=== PATIENT | female | born 1960 | race Caucasian/White ===

== ENCOUNTER 2021-03-23 14:18 | Emergency (ER) | payer OTHER, SELFPAY ==
[2021-03-23 14:32] VITALS: BP 141/78; PULSE 77; RESP 16; TEMP 36.1; O2SAT 100
--- NOTE | 2021-03-23 14:51 | ED.SKABFB ---
HPI - Skin/Abscess/Foreign Bdy General Chief complaint: Skin/Abscess/Foreign Body Stated complaint: Rash Time Seen by Provider: 03/23/21 14:51 Source: patient, RN notes reviewed and old records reviewed Mode of arrival: ambulatory Limitations: no limitations History of Present Illness HPI narrative: 60-year-old female presents to the [facility] with complaints of a rash right rib area states she noticed the pain approximately 1 week ago and started with a rash a couple of days ago. No treatment prior to arrival. States her son had shingles approximately 1 month ago MD complaint: rash Related Data Home Medications Medication Instructions Recorded Confirmed albuterol sulfate INHALATION 03/23/21 alendronate mg PO 03/23/21 citalopram mg 03/23/21 fluticasone propionate INTRANASAL 03/23/21 levothyroxine 03/23/21 montelukast mg 03/23/21 pravastatin 03/23/21 umeclidinium [Incruse Ellipta] INHALATION 03/23/21 Allergies Allergy/AdvReac Type Severity Reaction Status Date / Time No Known Allergies Allergy Verified 03/23/21 14:55 Review of Systems Review of Systems: All systems reviewed & are unremarkable except as noted in HPI and below Constitutional: Constitutional: Reports no additional constitutional complaints, Denies chills and Denies fever(s) Eyes: Eyes: Reports no additional eye complaints ENT: Reports system reviewed and no additional complaints, except as documented Cardiovascular: Cardiovascular: Reports no additional cardiovascular complaints Respiratory: Respiratory: Reports no additional respiratory complaints, Denies cough, Denies dyspnea and Denies wheezing Gastrointestinal: Gastrointestinal: Reports no additional gastrointestinal complaints, Denies abdominal pain, Denies nausea and Denies vomiting Musculoskeletal: Musculoskeletal: Reports no additional musculoskeletal complaints, Denies back pain, Denies myalgias and Denies muscle cramps Integumentary/Breasts: Skin/Breast: Reports as per HPI and Reports rash (Right rib cage) Neurologic: Reports system reviewed and no additional complaints, except as documented Psychiatric: Psychiatric: Reports no additional psychiatric complaints Allergic/Immunologic: Allergic/Immunologic: Reports no additional allergic/immunologic complaints [facility] Past Medical History Medical History (Updated 03/23/21 @ 19:12 by Shelly Murray) Anxiety and depression High cholesterol Thyroid disease Social History Social History (Updated 03/23/21 @ 19:10 by Shelly Murray) Gender identity (if verbalized by the patient): Female Comments At the time of my signature, I reviewed and agree with the nursing past medical, surgical, social, and family history. There is no relevant family history pertinent to the patient complaint. Exam Const: General: no acute distress, alert and ill appearing chronically; not acutely Nutritional Appearance: well nourished Orientation/consciousness: patient oriented x3 Limitations: no limitations HENMT: Head: normal to inspection Ears: external ears normal Eyes: Pupils: Equal, round and reactive pupils present Neck: Neck: normal visual inspection and no lymphadenopathy Chest: Chest palpation & inspection: normal inspection of the chest Resp: Effort & Inspection: normal respiratory effort Auscultation: clear to auscultation bilaterally Cardio: Rate: regular rate GI: GI Palp: Yes Soft to palpation and No Tenderness to palpation present (GI) Skin: Lesions: no lesions Rashes: rashes noted Trauma: no lacerations or abrasions Full body images: 1. Vesicular rashes half already crusted over 2. Vesicular rash Neuro: General: patient oriented x3, moves all extremities, no meningeal signs and no focal motor deficits Speech: normal speech Gait exam (Neuro): Normal gait present Psych: Appearance: grossly normal and well kempt Mental Status: mental status grossly normal Affect: normal affect Attitude: cooperative
== END 2021-03-23 15:10 | disposition home or self-care (01) ==
PROVIDERS: Emergency Provider Nurse Practitioner; PCP Registered Nurse
DX: B02.9 Zoster without complications (principal); E78.00 Pure hypercholesterolemia, unspecified; F41.9 Anxiety disorder, unspecified; F32.A Depression, unspecified
CPT/HCPCS: 99213; G0463

== ENCOUNTER 2021-06-06 12:35 | Emergency (ER) | payer OTHER, SELFPAY ==
--- NOTE | ~2021-06-06 | XR_ITS ---
XR hip LT min 2V 06/06/2021 13:14 Indication: Left hip pain Procedure: 3 views left hip Comparison: 01/02/2012 Findings: There is anatomic alignment. No fracture, subluxation or dislocation. No significant soft t issue abnormality. No foreign bodies. Impression: 1: No acute fracture. Reviewed, dictated and finalized at location B. Impression: 1: No acute fracture.
[2021-06-06 12:42] VITALS: BP 99/71; PULSE 84; RESP 16; TEMP 37.1; O2SAT 97
--- NOTE | 2021-06-06 12:43 | ED.BACK ---
HPI - Back Pain/Injury General Chief Complaint: Extremity Injury, Lower Stated Complaint: left hip pain Time Seen by Provider: 06/06/21 12:43 Source: patient Mode of arrival: ambulatory Limitations: no limitations History of Present Illness HPI Narrative: 60-year-old female presents with c/o low back pain radiating to L hip and down L leg. Hx of sciatica and L hip arthritis. States she normally can take tylenol or motrin and feels better in a few days but hip has really been bothering her. Pt cleans homes for a living. thought after two days off she would feel better but does not. Pt concerned that she might have a hip fracture. eliazar had a few spills recently . Ambulatory with steady gait. all systems reviewed and negative except as noted above. Related Data Home Medications Medication Instructions Recorded Confirmed albuterol sulfate INHALATION 03/23/21 alendronate mg PO 03/23/21 citalopram mg 03/23/21 fluticasone propionate INTRANASAL 03/23/21 levothyroxine 03/23/21 montelukast mg 03/23/21 pravastatin 03/23/21 umeclidinium [Incruse Ellipta] INHALATION 03/23/21 hydrochlorothiazide 06/06/21 losartan-hydrochlorothiazide tablet 06/06/21 Allergies Allergy/AdvReac Type Severity Reaction Status Date / Time No Known Allergies Allergy Verified 03/23/21 14:55 Review of Systems Review of Systems: CONSTITUTIONAL: Denies fever, chills, or sweats. EYES: Denies visual changes, redness, or discharge. ENT: Denies rhinorrhea, congestion, sore throat, or otalgia. CARDIOVASCULAR: Denies chest pain, palpitations, or edema. RESPIRATORY: Denies cough or dyspnea. GASTROINTESTINAL: Denies abdominal pain, nausea, vomiting, or diarrhea. GENITOURINARY: Denies dysuria or hematuria. SKIN: Denies rash or itching. MUSCULOSKELETAL: Reports left hip and back pain with radiation to left leg. NEUROLOGIC: Denies headache, numbness, or weakness. PSYCHIATRIC: Denies anxiety or depression. All other systems reviewed are negative, except as documented in HPI. COUNTS INCLUDE 234 BEDS AT THE [facility] Past Medical History Medical History (Updated 06/06/21 @ 13:30 by Amanda Martinez NP) Anxiety and depression High cholesterol Thyroid disease Social History Social History (Updated 03/23/21 @ 19:10 by Shelly Murray APRN) Gender identity (if verbalized by the patient): Female Comments At time of signature, agree with nursing past medical, surgical, social and family history. There is no relevant family history pertinent to the presenting complaint. Exam Narrative: GENERAL: This is a well-nourished, well-developed patient, in no apparent distress. HEAD: normocephalic, atraumatic. EYES: PERRL. Sclera clear/white. Vision is grossly intact. EARS: External ears normal NOSE: External nose normal THROAT: Mucous membranes moist NECK: Neck supple, non-tender without lymphadenopathy, masses or thyromegaly. CARDIOVASCULAR: Regular rate and rhythm without murmurs, gallops, or rubs. RESPIRATORY: Clear to auscultation. Breath sounds equal bilaterally. No wheezes, rales, or rhonchi. GASTROINTESTINAL: Abdomen soft, non-tender, nondistended. Bowel sounds are active. No hepato-splenomegaly, or palpable masses. No guarding. SKIN: warm, Dry, intact with no suspicious lesions or rash, good texture and turgor. NEURO: awake, alert, and oriented to person, place and time. There were no obvious focal neurologic abnormalities. EXTREMITIES: No joint tenderness, effusion, or edema noted. No calf tenderness. Negative Homans sign bilaterally. BACK: Tenderness to left SI with tenderness to left greater trochanter. Positive left straight leg raise. Both lower extremity strength 5 out of 5. Course Course Level of Care: Express Care Visit Vital Signs Vital signs: Reviewed MDM - Back Pain/Injury MDM Narrative Medical decision making narrative: Patient is aware of diagnosis, understands and agrees to treatment plan. Anticipatory guidance given. Patient agrees to follow-up as directed a
[2021-06-06] MEDS: KETOROLAC 30 MG/ML VIAL (*BKC) IM (12:57)
== END 2021-06-06 13:42 | disposition home or self-care (01) ==
PROVIDERS: Emergency Provider Nurse Practitioner Family
DX: M54.42 Lumbago with sciatica, left side (principal); E78.00 Pure hypercholesterolemia, unspecified; E03.9 Hypothyroidism, unspecified; F41.9 Anxiety disorder, unspecified; F32.A Depression, unspecified
CPT/HCPCS: 73502; 96372; 99213; G0463; J1885

== ENCOUNTER → 2021-10-19 13:47 | Outpatient (CLI) | payer OTHER, SELFPAY ==
--- NOTE | ~2021-10-19 | XR_ITS ---
XR lumbar spine 2-3V 10/19/2021 14:07 Indication: Low back pain and radiculopathy Procedure: 3 views lumbar spine Comparison: 04/30/2014 and 08/29/2009 Findings: There has been progression of disc height loss at L3-4 and L4-5. There is loss of disc heig ht at L5-S1. There is lower lumbar facet hypertrophy. No evidence for spondylolisthesis. There is lev oscoliosis. There are cholecystectomy clips. Pedicles intact. Sacral foramen are symmetric. Impression: 1: Moderate lumbar spondylosis with levoscoliosis. Reviewed, dictated and finalized at location A. Impression: 1: Moderate lumbar spondylosis with levoscoliosis.
== END ==
PROVIDERS: PCP Registered Nurse; Visit Provider Registered Nurse
DX: M54.15 Radiculopathy, thoracolumbar region (principal); M47.816 Spondylosis without myelopathy or radiculopathy, lumbar region; M41.86 Other forms of scoliosis, lumbar region
CPT/HCPCS: 72100

== ENCOUNTER 2022-01-09 15:55 | Emergency (ER) | payer OTHER, SELFPAY ==
[2022-01-09 16:05] VITALS: BP 99/68; PULSE 89; RESP 22; TEMP 36.7; O2SAT 99
[2022-01-09 16:06] VITALS: BP 99/68; PULSE 89; RESP 22; TEMP 36.7; O2SAT 99
--- NOTE | 2022-01-09 16:45 | ED.URI ---
HPI - URI/Sore Throat General Chief Complaint: Upper Respiratory Infection Stated Complaint: uri Time Seen by Provider: 01/09/22 16:21 Source: patient Mode of arrival: ambulatory Limitations: no limitations History of Present Illness HPI Narrative: Patient presents today complaining of body aches, cough, chills and sweats, diarrhea since yesterday. Denies fever. Reports granddaughter is currently hospitalized with influenza. Patient also states she is having left upper tooth pain and jaw swelling x2 days. She has attempted to call her dentist, but states their first appointment is at the end of February. States she has not tried any brat-[id number] medication for symptoms prior to arrival. Related Data Home Medications Medication Instructions Recorded Confirmed albuterol sulfate 90 mcg/actuation 90 mcg inhalation DIRECTED 03/23/21 01/09/22 aerosol inhaler alendronate 70 mg tablet 70 mg PO DIRECTED 03/23/21 01/09/22 citalopram 20 mg tablet 20 mg DIRECTED 03/23/21 01/09/22 fluticasone propionate 50 50 mcg intranasal DIRECTED 03/23/21 01/09/22 mcg/actuation nasal spray,suspension levothyroxine 125 mcg tablet 125 mcg DIRECTED 03/23/21 01/09/22 montelukast 10 mg tablet 10 mg DIRECTED 03/23/21 01/09/22 pravastatin 40 mg tablet 40 mg DIRECTED 03/23/21 01/09/22 umeclidinium 62.5 mcg/actuation 62.5 mcg inhalation DIRECTED 03/23/21 01/09/22 blister powder for inhalation (Incruse Ellipta) hydrochlorothiazide 12.5 mg capsule 12.5 mg DIRECTED 06/06/21 01/09/22 losartan 50 mg-hydrochlorothiazide 1 tablet DIRECTED 06/06/21 01/09/22 12.5 mg tablet Allergies Allergy/AdvReac Type Severity Reaction Status Date / Time No Known Allergies Allergy Verified 03/23/21 14:55 Review of Systems Review of Systems: CONSTITUTIONAL: Denies fever. + Chills, sweats, body aches EYES: Denies visual changes, redness, or discharge. ENT: Denies rhinorrhea, congestion, sore throat, or otalgia.+ Tooth pain and facial swelling CARDIOVASCULAR: Denies chest pain, palpitations, or edema. RESPIRATORY: Denies dyspnea.+ Cough GASTROINTESTINAL: Denies abdominal pain, nausea, vomiting. + Diarrhea GENITOURINARY: Denies dysuria or hematuria. SKIN: Denies rash, itching, or wounds. MUSCULOSKELETAL: Denies back pain, joint pain, or myalgia. NEUROLOGIC: Denies headache, numbness, tingling, or weakness. PSYCH: Denies depression or anxiety. [facility] Past Medical History Medical History Anxiety and depression High cholesterol Thyroid disease Social History Social History Gender identity (if verbalized by the patient): Female Comments At time of signature, I have reviewed and agree with nursing past medical, surgical, social and family history unless otherwise noted. Please see nursing chart for further information. There is no relevant family history pertinent to the presenting complaint Exam Narrative: GENERAL: Mildly ill-appearing, well-nourished, and in no acute distress. HEAD: Normocephalic, atraumatic. EYES: EOMI. No redness or drainage. Conjunctivae normal. ENT: Mucous membranes pink and moist. Nares clear. No rhinorrhea. TMs normal bilaterally. Throat normal. Uvula midline. Very poor dentition with missing teeth. Tooth #12 is brown in color. Surrounding gum swelling and periapical abscess present. Mild to moderate left upper jaw swelling. NECK: Normal AROM. Supple. No lymphadenopathy. CHEST: No respiratory distress. Clear to auscultation. HEART: Regular rate and rhythm. No murmur appreciated. Normal peripheral pulses. EXTREMITIES: Normal range of motion. No edema. SKIN: Warm, dry, no rash. Capillary refill normal. Normal skin turgor. NEURO: No focal deficits. Alert and oriented x3. Gait steady. PSYCH: Normal affect. No signs of depression or anxiety. Course Course Level
== END 2022-01-09 16:59 | disposition home or self-care (01) ==
PROVIDERS: Emergency Provider Nurse Practitioner
DX: J10.1 Influenza due to other identified influenza virus with other respiratory manifestations (principal); K04.7 Periapical abscess without sinus; E78.00 Pure hypercholesterolemia, unspecified; E03.9 Hypothyroidism, unspecified; F41.9 Anxiety disorder, unspecified; F32.A Depression, unspecified
CPT/HCPCS: 87804; 99213; G0463

== ENCOUNTER 2022-06-06 13:18 | Emergency (ER) | payer OTHER, SELFPAY ==
[2022-06-06 13:30] VITALS: BP 123/59; PULSE 95; RESP 16; TEMP 37.2; O2SAT 98
--- NOTE | 2022-06-06 13:37 | ED.BACK ---
HPI - Back Pain/Injury General Chief Complaint: Back Pain/Injury Stated Complaint: Back Pain Time Seen by Provider: 06/06/22 13:37 Source: patient Mode of arrival: ambulatory Limitations: no limitations History of Present Illness HPI Narrative: 61 y/o female presented for c/o left lower back pain for about 6 days. Denies injury or overuse. Pain radiates into the left hip. Pain is worse with movement. Described as sharp. Rates 8/10 with movement. Denies radiating pain to the foot or knee, numbness, tingling, weakness of lower extremities, saddle paresthesia, loss of bowel or bladder. Has not taken anything in addition to her scheduled medications for pain. Has applied pain cream. States she has seen pain management in the past for similar complaints. Related Data Home Medications Medication Instructions Recorded Confirmed albuterol sulfate 90 mcg/actuation 90 mcg inhalation DIRECTED 03/23/21 01/09/22 aerosol inhaler alendronate 70 mg tablet 70 mg PO DIRECTED 03/23/21 01/09/22 citalopram 20 mg tablet 20 mg DIRECTED 03/23/21 01/09/22 fluticasone propionate 50 50 mcg intranasal DIRECTED 03/23/21 01/09/22 mcg/actuation nasal spray,suspension levothyroxine 125 mcg tablet 125 mcg DIRECTED 03/23/21 01/09/22 montelukast 10 mg tablet 10 mg DIRECTED 03/23/21 01/09/22 pravastatin 40 mg tablet 40 mg DIRECTED 03/23/21 01/09/22 umeclidinium 62.5 mcg/actuation 62.5 mcg inhalation DIRECTED 03/23/21 01/09/22 blister powder for inhalation (Incruse Ellipta) losartan 50 mg-hydrochlorothiazide 1 tablet DIRECTED 06/06/21 01/09/22 12.5 mg tablet umeclidinium 62.5 mcg/actuation inhalation 06/06/22 blister powder for inhalation (Incruse Ellipta) Allergies Allergy/AdvReac Type Severity Reaction Status Date / Time No Known Allergies Allergy Verified 06/06/22 13:20 Review of Systems Review of Systems: CONSTITUTIONAL: Denies body aches, fever, chills EYES: Denies visual changes CARDIOVASCULAR: Denies chest pain, palpitations, or edema. RESPIRATORY: Denies cough or dyspnea. GASTROINTESTINAL: Denies abdominal pain, nausea, vomiting, or diarrhea. SKIN: Denies rash, itching, or wounds. MUSCULOSKELETAL: reports back pain NEUROLOGIC: Denies headache, numbness, tingling, or weakness. All systems reviewed & are unremarkable except as noted in HPI and below PMFSH Past Medical History Medical History Anxiety and depression High cholesterol Thyroid disease Social History Social History Gender identity (if verbalized by the patient): Female Comments At time of signature, I have reviewed and agree with nursing past medical, surgical, social and family history unless otherwise noted. Please see nursing chart for further information. There is no relevant family history pertinent to the presenting complaint Exam Narrative: GENERAL: appears in pain, no acute distress. HEAD: Normocephalic, atraumatic. EYES: conjunctivae clear NECK: Supple. full ROM CHEST: Speaks in full sentences. No respiratory distress. HEART: Regular rate and rhythm. Normal and equal peripheral pulses. MUSC: No Vertebral point tenderness. Left lower back pain, tender to left para sacral/hip area. No SI joint pain. BLEs with normal strength and sensation, normal range of motion, endorses pain with movement. No open wounds, bruising, or obvious deformity; alignment normal, pulse palpable and equal bilaterally, skin warm, dry, pink. Capillary refill less than 3 seconds. Gait steady. SKIN: Warm, dry, no rash. NEURO: Alert and oriented x3. Course Course Emergency Course: Patient is aware of diagnosis, understands and agrees to treatment plan. Anticipatory guidance given. Patient agrees to follow-up as directed and is aware of reasons to seek care at the emergency department. Portions of this record may have
[2022-06-06] MEDS: methylPREDNISolone ACETATE 80 MG/ML VIAL IM (13:58)
== END 2022-06-06 14:18 | disposition home or self-care (01) ==
PROVIDERS: Emergency Provider Nurse Practitioner Family; PCP Registered Nurse
DX: M54.50 Low back pain, unspecified (principal); E78.00 Pure hypercholesterolemia, unspecified; E07.9 Disorder of thyroid, unspecified; F41.9 Anxiety disorder, unspecified; F32.A Depression, unspecified
CPT/HCPCS: 96372; 99213; G0463; J1040

== ENCOUNTER 2022-09-27 10:17 | Outpatient (CLI) | payer OTHER, SELFPAY ==
[2022-09-27 12:06] LABS: Free T4 Free Thyroxine 1.86 ng/mL (0.78-2.19)
[2022-09-27 12:08] LABS: Thyroid Stimulating Hormone < 0.015 uIU/mL (0.465-4.680)
[2022-10-01 14:44] LABS: Thyroid Stimulating Immunoglob <89 % baseline (<140)
== END 2022-09-27 10:18 | disposition home or self-care (01) ==
PROVIDERS: PCP Registered Nurse; Visit Provider Internal Medicine
DX: E03.9 Hypothyroidism, unspecified (principal)
CPT/HCPCS: 36415; 84439; 84443; 84445

== ENCOUNTER 2022-11-21 20:26 | Emergency (ER) | payer OTHER, SELFPAY ==
--- NOTE | ~2022-11-21 | CT_ITS ---
Clinical Indication: Chest and abdominal pain CT Scan of the Chest, Abdomen, and Pelvis with Contrast: Technique: Contiguous sections were acquired throughout the chest, abdomen, and pelvis after intraven ous administration of 100 cc of Omnipaque 350. Dose reduction technique was used on this scan by uti lizing automated exposure control and iterative reconstruction technique. The dose-length product (DL P) was 321.95 mGy-cm. Findings: There is no evidence of any significant mediastinal, hilar or axillary lymphadenopathy. Atherosclerot ic calcifications of the aorta and coronary arteries are present. There is no aortic aneurysm or diss ection. No pulmonary embolus seen. There is no evidence of pleural or pericardial effusion. There is severe emphysema, particularly upper lobes. There is a 5.5 mm noncalcified pulmonary nodule the left upper lobe/lingula (series 6 image 65). Mild central intrahepatic biliary dilatation may be related to prior cholecystectomy. The spleen, sotelo creas, adrenals and kidneys are within normal limits. There are atherosclerotic calcifications of the aorta. No lymphadenopathy. No bowel obstruction or definite bowel wall thickening. Moderate stool noted. No abscess or free air evident. Urinary bladder is unremarkable. No pelvic mass seen. No ascites. Impression: No definite acute abnormality seen. Severe emphysema. 5.5 mm noncalcified left upper lobe/lingula pulmonary nodule. According to Fleischner Society criteri a, for a low-risk patient, no further follow-up required. For a high-risk patient, consider 12 month follow-up CT. Moderate stool. Correlate for constipation. Mild central intrahepatic biliary dilatation may be related to prior cholecystectomy. Reviewed, dictated and finalized at [facility]. Impression: No definite acute abnormality seen. Severe emphysema. 5.5 mm noncalcified left upper lobe/lingula pulmonary nodule. According to Flei schner Society criteria, for a low-risk patient, no further follow-up required. For a high-risk patient, consider 12 month follow-up CT. Moderate stool. Correlate for constipation. Mild central intrahepatic biliary dilatation may be related to prior cholecyste ctomy.
[2022-11-21 20:29] VITALS: BP 134/73; PULSE 83; RESP 20; TEMP 35.8; O2SAT 100
[2022-11-21 22:38] VITALS: BP 151/71; PULSE 81; RESP 20; TEMP 36.1; O2SAT 98
[2022-11-22] VITALS (7 sets, daily range): BP systolic 104–136; BP diastolic 61–89; PULSE 72–82; RESP 15–20; TEMP 36.1–36.6; O2SAT 94–99
[2022-11-22 01:43] LABS: Basophils Absolute Auto 0.1 K/mm3 (0.0-0.1); Basophils Percent Auto 0.5 % (0.2-1.2); Eosinophils Absolute Auto 0.2 K/mm3 (0-0.3); Eosinophils Percent Auto 1.5 % (0-4.4); Hematocrit 42.6 % (37.0-47.0); Hemoglobin 14.2 g/dL (12.0-15.0); Immature Granulocyte Absolute 0.04 K/mm3 (0.00-0.031); Immature Granulocyte Percent A 0.3 % (0-0.5); Lymphocytes Percent Auto 20.8 % (18.3-44.2); Mean Corpuscular HGB Conc 33.3 g/dl (32-36); Mean Platelet Volume 9.5 fl (7.4-10.4); Monocytes Absolute Auto 1.3 K/mm3 (0.1-0.6); Neutrophils Absolute Auto 7.9 K/mm3 (1.3-6.7); Neutrophils Percent Auto 65.9 % (45.5-73.1); Platelet Count Result 371 k/mm3 (150-375); Red Blood Count 4.58 M/mm3 (4.2-5.4); Red Cell Distribution Width 13.1 % (11.5-14.5)
[2022-11-22 01:58] LABS: Alanine Aminotransferase 17 U/L (6-35); Albumin Level 4.4 g/dL (3.5-5.1); Alkaline Phosphatase 71 U/L (38-126); Anion Gap 4 mmol/L (8-16); Aspartate Amino Transferase 22 U/L (14-36); Bilirubin,Total 0.8 mg/dL (0.2-1.3); Blood Urea Nitrogen 11 mg/dL (7-17); Calcium 8.7 mg/dL (8.4-10.2); Carbon Dioxide 31 mmol/L (22-30); Chloride 98 mmol/L (98-107); Estimated CRCL calculation 60 ml/min; Estimated Glomerular Filt Rate > 60; Glucose 103 mg/dL (65-110); Lipase 68 U/L (23-300); Potassium 3.7 mmol/L (3.4-5.0); Sodium 133 mmol/L (137-145)
[2022-11-22 01:59] LABS: Lactic Acid Reflex 0.8 mmol/L (0.7-2.0)
[2022-11-22 03:19] LABS: Appearance Urine Clear (Clear); Bilirubin Urine Negative (Negative); Blood Urine Negative (Negative); Color Urine Yellow (Yellow); Glucose Urine UA Negative (Negative); Ketones Urine Negative (Negative); Leukocyte Esterase Ur Negative LEU/UL (Negative); Nitrate Urine Negative (Negative); Protein Urine Negative (Negative); Specific Grav Ur 1.005 (1.001-1.035)
[2022-11-22 03:21] LABS: Add Urine Microscopic? NO
--- NOTE | 2022-11-22 03:23 | ECG_ITS ---
Measurements Intervals [place] Rate: 67 P: 59 WV: 169 QRS: 69 QRSD: 90 T: 60 QT: 418 QTc: 443 Interpretive Statements SINUS RHYTHM POSSIBLE LEFT ATRIAL ENLARGEMENT BASELINE WANDER- I, II, AVR, AVL, AVF BORDERLINE ECG NO PREVIOUS ECG AVAILABLE FOR COMPARISON Electronically Signed On 11-22-2022 6:52:07 CDT by Alcides Berger D.O.
[2022-11-22] MEDS: MORPHINE SULFATE (*CRX) 4 MG/ML INJ 2 MG IV PUSH (03:34)
[2022-11-22 04:13] LABS: NT Pro B Type Natriuretic Pept 70 pg/mL (19.9-100); Troponin I < 0.012 ng/mL (0.000-0.034)
--- NOTE | 2022-11-22 04:45 | ED.GENADULT ---
HPI - General Adult General Chief complaint: Abdominal Pain Stated complaint: Abdominal pain Time Seen by Provider: 11/22/22 03:12 History of Present Illness HPI narrative: Patient is 62-year-old female who presents the emergency department with chief complaint of abdominal pain. Patient reports she started having pain in the right side of her abdomen the right lower chest. The patient reports the pain is worse with inspiration and movement. The patient reports she has history of a chronic infection in her lungs patient reports that she has had no fever does report that she has chronic cough patient reports that she had a cholecystectomy before in the past. Related Data Home Medications Medication Instructions Recorded Confirmed albuterol sulfate 90 mcg/actuation 90 mcg inhalation DIRECTED 03/23/21 01/09/22 aerosol inhaler alendronate 70 mg tablet 70 mg PO DIRECTED 03/23/21 01/09/22 citalopram 20 mg tablet 20 mg DIRECTED 03/23/21 01/09/22 fluticasone propionate 50 50 mcg intranasal DIRECTED 03/23/21 01/09/22 mcg/actuation nasal spray,suspension montelukast 10 mg tablet 10 mg DIRECTED 03/23/21 01/09/22 pravastatin 40 mg tablet 40 mg DIRECTED 03/23/21 01/09/22 losartan 50 mg-hydrochlorothiazide 1 tablet DIRECTED 06/06/21 01/09/22 12.5 mg tablet Allergies Allergy/AdvReac Type Severity Reaction Status Date / Time No Known Allergies Allergy Verified 09/27/22 08:56 Review of Systems Review of Systems: A 10 system review of systems was completed on the patient and is negative except for what is stated in the HPI. Nursing and ancillary documentation was reviewed. [facility] Past Medical History Medical History Anxiety and depression Arthritis COPD (chronic obstructive pulmonary disease) High cholesterol Hypertension Osteopenia Thyroid disease Surgical History Surgical History History of cholecystectomy History of hernia repair History of knee surgery History of sinus surgery Family History Family History Sibling Carcinoma of colon Social History Social History Smoking status: Current every day smoker Tobacco type: cigarettes Alcohol intake: former Substance use: former Substance use type: marijuana Lack of Transportation: No Lack of Food: Never True Current Housing: I Do Not Have Housing Concerned About Future Housing: No Difficulty Paying Gas/Electric Bills: No Difficulty Paying for Meds: No Currently Unemployed: No Education: High School Diploma/GED Difficulty w/ Childcare or Family Care: No Gender identity (if verbalized by the patient): Female Exam Narrative: GENERAL: Well-appearing, well-nourished, and in no acute distress. HEAD: Normocephalic, atraumatic. EYES: PERRLA and EOMI. ENT: Nares clear, no rhinorrhea or epistaxis. Mucous membranes moist. NECK: Supple. CHEST: Clear to auscultation. No respiratory distress. HEART: Regular rate and rhythm. No murmur heard. Normal peripheral pulses. ABDOMEN: Soft, tenderness to palpation in the right upper quadrant, nondistended, normal active bowel sounds. EXTREMITIES: Normal range of motion. No edema. SKIN: Warm, dry, no rash. NEURO: No focal deficits. Alert and oriented x3. PSYCH: Normal mood and affect. Course Vital Signs Vital signs: Vital Signs Temperature 35.8 C L 11/21/22 20:29 Pulse Rate 83 11/21/22 20:29 Respiratory Rate 20 11/21/22 20:29 Blood Pressure 134/73 11/21/22 20:29 Pulse Oximetry 100 11/21/22 20:29 Oxygen Delivery Room Air 11/21/22 20:29 Temperature 36.6 C 11/22/22 02:51 Pulse Rate 80 11/22/22 05:49 Respiratory Rate 15 11/22/22 05:49 Blood Pressure 104/62 11/22/22 05:49 Puls
== END 2022-11-22 06:31 | disposition home or self-care (01) ==
PROVIDERS: Emergency Provider Emergency Medicine; PCP Registered Nurse
DX: K59.00 Constipation, unspecified (principal); R07.9 Chest pain, unspecified; J43.9 Emphysema, unspecified; E78.00 Pure hypercholesterolemia, unspecified; I10 Essential (primary) hypertension; E07.9 Disorder of thyroid, unspecified; M85.80 Other specified disorders of bone density and structure, unspecified site; F32.A Depression, unspecified; F41.9 Anxiety disorder, unspecified; F17.210 Nicotine dependence, cigarettes, uncomplicated; Z90.49 Acquired absence of other specified parts of digestive tract; R94.31 Abnormal electrocardiogram [ECG] [EKG]; R91.1 Solitary pulmonary nodule
CPT/HCPCS: 36415; 71275; 74177; 80053; 81003; 83605; 83690; 83880; 84484; 85025; 93005; 96374; 99284; J2270; Q9967

== ENCOUNTER 2022-12-17 11:16 | Outpatient (CLI) | payer OTHER, SELFPAY ==
[2022-12-17 12:40] LABS: Thyroid Stimulating Hormone 0.135 uIU/mL (0.465-4.680)
== END 2022-12-17 11:17 | disposition home or self-care (01) ==
LOC: ANHLAB 11:19
PROVIDERS: PCP Registered Nurse; Visit Provider Internal Medicine
DX: E03.9 Hypothyroidism, unspecified (principal)
CPT/HCPCS: 36415; 84439; 84443

== ENCOUNTER 2023-03-21 10:53 | Outpatient (CLI) | payer OTHER, SELFPAY ==
[2023-03-21 12:03] LABS: Free T4 Free Thyroxine 1.69 ng/mL (0.78-2.19)
[2023-03-21 12:11] LABS: Thyroid Stimulating Hormone 0.534 uIU/mL (0.465-4.680)
== END 2023-03-21 10:54 | disposition home or self-care (01) ==
LOC: ANHLAB 10:54
PROVIDERS: PCP Registered Nurse; Visit Provider Internal Medicine
DX: E03.9 Hypothyroidism, unspecified (principal)
CPT/HCPCS: 36415; 84439; 84443

== ENCOUNTER 2023-06-26 10:00 | Outpatient (CLI) | payer OTHER, SELFPAY ==
[2023-06-26 11:28] LABS: Free T4 Free Thyroxine 1.68 ng/mL (0.78-2.19); Vitamin D 25 Hydroxy 71.6 ng/mL
[2023-06-26 11:32] LABS: Thyroid Stimulating Hormone 0.435 uIU/mL (0.465-4.680)
== END 2023-06-26 10:01 | disposition home or self-care (01) ==
LOC: ANHLAB 10:02
PROVIDERS: PCP Registered Nurse; Visit Provider Internal Medicine
DX: E03.9 Hypothyroidism, unspecified (principal)
CPT/HCPCS: 36415; 82306; 84439; 84443

== ENCOUNTER 2023-07-01 11:41 | Emergency (ER) | payer OTHER, SELFPAY ==
--- NOTE | ~2023-07-01 | XR_ITS ---
Clinical Indication: Cough PA and lateral views of the chest: Comparison: 07/24/2018 Findings: The lungs are clear, without evidence of focal consolidation or pleural effusion. Cardiome diastinal silhouette is within normal limits. Bones and soft tissues are unremarkable. Impression: Normal chest. Reviewed, dictated and finalized at [facility]. Impression: Normal chest.
[2023-07-01 11:55] VITALS: BP 134/89; PULSE 86; RESP 16; TEMP 36.9; O2SAT 99
--- NOTE | 2023-07-01 12:02 | ED.BACK ---
HPI - Back Pain/Injury General Chief Complaint: Back Pain/Injury Stated Complaint: Back /Flank Pain Time Seen by Provider: 07/01/23 12:18 Source: patient Mode of arrival: ambulatory Limitations: no limitations History of Present Illness HPI Narrative: Melly is a 62-year-old female patient presenting to the clinic today with complaints of left upper back pain worse when taking a inspiration. History of pneumonia in the past. History of COPD. Is coughing up some yellow phlegm. Denies any known fever or chills. States the pain does seem to be worse with movement and with taking deep breaths. Denies any increase in shortness of breath Related Data Home Medications Medication Instructions Recorded Confirmed albuterol sulfate 90 mcg/actuation 90 mcg inhalation DIRECTED 03/23/21 07/01/23 aerosol inhaler alendronate 70 mg tablet 70 mg PO DIRECTED 03/23/21 07/01/23 citalopram 20 mg tablet 20 mg DIRECTED 03/23/21 07/01/23 fluticasone propionate 50 50 mcg intranasal DIRECTED 03/23/21 07/01/23 mcg/actuation nasal spray,suspension montelukast 10 mg tablet 10 mg DIRECTED 03/23/21 07/01/23 pravastatin 40 mg tablet 40 mg DIRECTED 03/23/21 07/01/23 losartan 50 mg-hydrochlorothiazide 1 tablet DIRECTED 06/06/21 07/01/23 12.5 mg tablet ezetimibe 10 mg tablet (Zetia) 10 mg PO DAILY 12/24/22 07/01/23 nicotine 14 mg/24 hr daily 1 patch transdermal DAILY 12/24/22 07/01/23 transdermal patch ergocalciferol (vitamin D2) 1,250 1,250 mcg PO WEEKLY 04/29/23 07/01/23 mcg (50,000 unit) capsule Allergies Allergy/AdvReac Type Severity Reaction Status Date / Time No Known Allergies Allergy Verified 07/01/23 12:12 Review of Systems Review of Systems: Pertinent positives per HPI. Patient denies any fever, chills, rash, headache, visual changes, dizziness, shortness of breath, chest pain, palpitations, nausea, vomiting, diarrhea, constipation, abdominal pain, or any urinary issues. PMFSH Past Medical History Medical History Anxiety and depression Arthritis COPD (chronic obstructive pulmonary disease) High cholesterol Hypertension Osteopenia Thyroid disease Surgical History Surgical History History of cholecystectomy History of hernia repair History of knee surgery History of sinus surgery Family History Family History Sibling Carcinoma of colon Social History Social History Smoking status: Current every day smoker Tobacco type: cigarettes Alcohol intake: former Substance use: former Substance use type: marijuana Do You Feel Safe in your Home?: Yes Lack of Transportation: No Lack of Food: Never True Current Housing: I Do Not Have Housing Concerned About Future Housing: No Difficulty Paying Gas/Electric Bills: No Difficulty Paying for Meds: No Currently Unemployed: No Education: High School Diploma/GED Difficulty w/ Childcare or Family Care: No Gender identity (if verbalized by the patient): Female Comments At the time of my signature, I reviewed and agree with the nursing past medical, surgical, social, and family history. There is no relevant family history pertinent to the patient complaint. Exam Narrative: General: Well-developed, well nourished, in no apparent distress Head: Normocephalic, atraumatic Eyes: Pupils equally round and reactive to light bilaterally, EOM intact, sclera and conjunctive clear, no discharge, lids normal Ears: TMs intact and clear, ear canals clear, no drainage, grossly hearing normal. Nose: Nares patent, no discharge, no inflammation, no sinus tenderness. Mouth: Oral pharynx without lesions or masses, good dentition, MMM. Neck: Supple, trachea midline, no enlargement of anterior or manager of pmo
== END 2023-07-01 12:58 | disposition home or self-care (01) ==
PROVIDERS: Emergency Provider Nurse Practitioner Family; PCP Registered Nurse
DX: M54.6 Pain in thoracic spine (principal); F17.210 Nicotine dependence, cigarettes, uncomplicated; M19.90 Unspecified osteoarthritis, unspecified site; J44.9 Chronic obstructive pulmonary disease, unspecified; E78.00 Pure hypercholesterolemia, unspecified; I10 Essential (primary) hypertension; M85.80 Other specified disorders of bone density and structure, unspecified site; F41.9 Anxiety disorder, unspecified; F32.A Depression, unspecified
CPT/HCPCS: 71046; 99213; G0463

== ENCOUNTER 2023-10-09 08:57 | Outpatient (CLI) | payer OTHER, SELFPAY ==
--- NOTE | ~2023-10-09 | DEXA_ITS ---
Bone Density Report Name: BEN PA Age: 63 Sex: Female Ethnicity: White Date of : 1960 Indication: postmenopausal; screening for osteoporosis; history of glucocorticoids; asthma or emphysema; Referring Provider: DANIE MORALES Study: Bone densitometry was performed. Exam Date: October 09, 2023 Accession number: [id number] Bone Density: Region BMD T-score Z-score Classification AP Spine(L1-L4) 0.912 -1.2 0.5 Osteopenia Femoral Neck (Left) 0.715 -1.2 0.3 Osteopenia Total Hip (Left) 0.781 -1.3 -0.2 Osteopenia Femoral Neck (Right) 0.721 -1.1 0.3 Osteopenia Total Hip (Right) 0.808 -1.1 0.1 Osteopenia Total Hip Mean 0.794 -1.2 -0.1 Osteopenia World Health Organization criteria for BMD impression classify patients as: Normal (T-score at or above -1.0), Osteopenia (T-score between -1.0 and -2.5), or Osteoporosis (T-score at or below -2.5). 10-year Fracture Risk(1): Major Osteoporotic Fracture 11% Hip Fracture 1.9% Reported Risk Factors: [place] (), Neck BMD=0.715, BMI=19.2, smoking, glucocorticoids (1) FRAX(R) Version 3.08. Fracture probability calculated for an untreated patient. Fracture probability may be lower if the patient has received treatment. Clinical Information Provided by Patient: Smokes Has taken Glucocorticoids Has used the following medications: Fosamax (i.e. alendronate), Vitamin D Has the following medical conditions: Asthma or Emphysema Patient maximum height was 61.5 Menopause Age: 43 Drinks caffeinated beverages Onset of menses at age 12 Number of children 3 Impression: The patient has low bone mass, based on the Left Total Hip T-score. The patient has an estimated ten-year risk of hip fracture of 1.9% and an estimated ten-year risk of major fracture of 11%, based on the WHO FRAX algorithm. The patient has risk factors, including: smoking, history of glucocorticoid therapy. Discussion: BONE DENSITY IS LOW AT ONE OR MORE SKELETAL SITES. This patient's lowest T-score is low at one or more skeletal sites. It meets the World Health Organization's (WHO) criteria for ?low bone mass? (T-score between -1.0 and -2.5). The patient's 10-year risk of fracture as calculated by FRAX is less than the threshold where pharmacological therapy is recommended by the National Osteoporosis Foundation (NOF). However, all treatment decisions require clinical judgment and consideration of individual patient factors, including patient preferences, comorbidities, previous drug use, risk factors not captured in the FRAX model (e.g., frailty, falls, vitamin D deficiency, increased bone turnover, interval significant decline in bone density) and possible under or overestimation of fracture risk by FRAX. The patient should follow a healthful lifestyle (good nutritio
== END 2023-10-09 08:58 | disposition home or self-care (01) ==
LOC: ANHIMG 08:59
PROVIDERS: PCP Registered Nurse; Visit Provider Internal Medicine
DX: E03.9 Hypothyroidism, unspecified (principal); F17.200 Nicotine dependence, unspecified, uncomplicated; I10 Essential (primary) hypertension; M85.88 Other specified disorders of bone density and structure, other site; M85.852 Other specified disorders of bone density and structure, left thigh; M85.851 Other specified disorders of bone density and structure, right thigh
CPT/HCPCS: 77080

== ENCOUNTER 2023-10-16 14:44 | Outpatient (CLI) | payer OTHER, SELFPAY ==
[2023-10-17 09:15] LABS: Free T4 Free Thyroxine 1.33 ng/mL (0.78-2.19)
[2023-10-17 09:17] LABS: Parathyroid Intact 31.9 pg/mL (7.5-53.5)
[2023-10-17 09:22] LABS: Creatinine 24 Hour Urine 0.5 gm/24 (0.8-1.8); Total Volume 24 Hour Urine 1100 ml
[2023-10-21 08:20] LABS: Total Volume 1100 mL
== END 2023-10-16 14:45 | disposition home or self-care (01) ==
LOC: ANHLAB 10-21 14:44
PROVIDERS: PCP Registered Nurse; Visit Provider Internal Medicine
DX: E03.9 Hypothyroidism, unspecified (principal); F17.200 Nicotine dependence, unspecified, uncomplicated; I10 Essential (primary) hypertension; M85.80 Other specified disorders of bone density and structure, unspecified site
CPT/HCPCS: 36415; 81050; 82340; 82570; 83970; 84439; 84443

== ENCOUNTER 2024-04-20 14:32 | Outpatient (CLI) | payer OTHER, SELFPAY ==
[2024-04-20 17:24] LABS: Free T4 Free Thyroxine 1.21 ng/dL (0.78-2.19)
== END 2024-04-20 14:33 | disposition home or self-care (01) ==
PROVIDERS: PCP Registered Nurse; Visit Provider Internal Medicine
DX: M85.80 Other specified disorders of bone density and structure, unspecified site (principal); I10 Essential (primary) hypertension; E03.9 Hypothyroidism, unspecified
CPT/HCPCS: 36415; 84439; 84443

== ENCOUNTER 2024-05-17 03:29 | Day surgery (SDC) | payer OTHER, SELFPAY ==
[2024-04-29 14:43] VITALS: BMI 20.2
[2024-05-17 09:36] VITALS: BP 109/73; PULSE 77; RESP 20; TEMP 36.1; O2SAT 97
--- NOTE | 2024-05-17 09:43 | PM.HPGS ---
History of Present Illness History of Present Illness Consent: Risks, benefits, and alternatives have been discussed and questions answered. Patient agrees to proceed with procedure. Chief complaint: hx of colon polyps Narrative: Melly Raya is a 63 year old female with colon polyp and family history colon cancer in sister Review of Systems Review of Systems: All systems reviewed & are unremarkable except as noted in HPI and below PMFSH Past Medical History Medical History (Updated 05/17/24 @ 09:44 by Jay Graham MD) Family history of colon cancer Hypertension Arthritis COPD (chronic obstructive pulmonary disease) Osteopenia Anxiety and depression High cholesterol Thyroid disease Surgical History Surgical History History of hernia repair History of knee surgery History of sinus surgery History of cholecystectomy Family History Family History Sibling Carcinoma of colon Social History Social History Smoking status: Current every day smoker Tobacco type: cigarettes Alcohol intake: never Substance use: never Substance use type: does not use Do You Feel Safe in your Home?: Yes Lack of Transportation: No Lack of Food: Never True Current Housing: I Do Not Have Housing Concerned About Future Housing: No Difficulty Paying Gas/Electric Bills: No Difficulty Paying for Meds: No Currently Unemployed: No Education: High School Diploma/GED Difficulty w/ Childcare or Family Care: No Gender identity (if verbalized by the patient): Female Meds Home Medications and Allergies Home Medications ?Medication ?Instructions ?Recorded ?Confirmed ?Type albuterol sulfate 90 mcg/actuation 90 mcg inhalation Q4-6H PRN 03/23/21 04/29/24 History aerosol inhaler shortness of breath or wheezing citalopram 20 mg tablet 20 mg PO DAILY 03/23/21 04/29/24 History fluticasone propionate 50 50 mcg intranasal DAILY PRN nasal 03/23/21 04/29/24 History mcg/actuation nasal congestion spray,suspension gabapentin 100 mg capsule 100 mg PO BID #14 caps 03/23/21 04/29/24 Rx montelukast 10 mg tablet 10 mg PO DAILY 03/23/21 04/29/24 History pravastatin 40 mg tablet 40 mg PO DAILY 03/23/21 04/29/24 History losartan 50 mg-hydrochlorothiazide 1 tablet PO DAILY 06/06/21 04/29/24 History 12.5 mg tablet polyethylene glycol 3350 17 gram 17 g PO DAILY 4 days #14 ea 11/22/22 04/29/24 Rx oral powder packet (Miralax) ezetimibe 10 mg tablet (Zetia) 10 mg PO DAILY 12/24/22 04/29/24 History nicotine 14 mg/24 hr daily 1 patch transdermal DAILY 12/24/22 04/29/24 History transdermal patch ergocalciferol (vitamin D2) 1,250 1,250 mcg PO WEEKLY 04/29/23 04/29/24 History mcg (50,000 unit) capsule baclofen 10 mg tablet 10 mg PO TID 3 days #10 tabs 07/01/23 04/29/24 Rx Unithroid 112 mcg tablet 112 mcg PO DAILY #90 tabs 04/14/24 04/29/24 Rx (levothyroxine) cholecalciferol (vitamin D3) 25 25 mcg PO DAILY 04/29/24 04/29/24 History mcg (1,000 unit) tablet Allergies Allergy/AdvReac Type Severity Reaction Status Date / Time No Known Allergies Allergy Verified 05/17/24 09:35 Vital Signs Vital Signs - 24 hr 05/17/24 09:36 Temperature 97 F L Pulse Rate 77 Respiratory Rate 20 Blood Pressure 109/73 Pulse Oximetry 97 Oxygen Delivery Room Air Exam Const: General: comfortable and no acute distress HENMT: Face/Nose/Sinus: Normal nares present Eyes: General: appearance normal, both eyes and all related structures Neck: Neck: no JVD Resp: Auscultation: clear to auscultation bilaterally Cardio: Rate: regular rate Rhythm: regular rhythm GI: Inspection: non-distended GI Palp: Yes Soft to palpation Skin: General skin exam: normal color Neuro: Speech: normal speech Extrem: General: normal to inspection Psych: Mental Status: mental status grossly normal Assessment and Plan Assessment and plan (1) Family history of colon cancer: Code(s): Z80.0 - Family history of malignant neoplasm of digestive organs Status: Acute Assessment and Plan: colonoscopy
--- NOTE | 2024-05-17 09:43 | WPDANESEPPF ---
Anes - Initial Pre Proc Eval Procedure: Operation Date: 05/17/24 11:00 Proposed Procedures p Colonoscopy - Jay Graham MD Date/Time: 05/17/24 09:43 Surgeon: Jay Graham MD Pre Op Diagnosis: hx of colon polyps Patient Data Age: 63 Gender: F Height: 1.55 m Weight: 45.4 kg Last Vital Signs Temp 36.1 C L 05/17/24 09:36 Pulse 77 05/17/24 09:36 Resp 20 05/17/24 09:36 BP 109/73 05/17/24 09:36 Pulse Ox 97 05/17/24 09:36 O2 Del Method Room Air 05/17/24 09:36 Allergies Allergy/AdvReac Type Severity Reaction Status Date / Time No Known Allergies Allergy Verified 05/17/24 09:35 Home Medications ?Medication ?Instructions ?Recorded ?Confirmed ?Type albuterol sulfate 90 mcg/actuation 90 mcg inhalation Q4-6H PRN 03/23/21 04/29/24 History aerosol inhaler shortness of breath or wheezing citalopram 20 mg tablet 20 mg PO DAILY 03/23/21 04/29/24 History fluticasone propionate 50 50 mcg intranasal DAILY PRN nasal 03/23/21 04/29/24 History mcg/actuation nasal congestion spray,suspension gabapentin 100 mg capsule 100 mg PO BID #14 caps 03/23/21 04/29/24 Rx montelukast 10 mg tablet 10 mg PO DAILY 03/23/21 04/29/24 History pravastatin 40 mg tablet 40 mg PO DAILY 03/23/21 04/29/24 History losartan 50 mg-hydrochlorothiazide 1 tablet PO DAILY 06/06/21 04/29/24 History 12.5 mg tablet polyethylene glycol 3350 17 gram 17 g PO DAILY 4 days #14 ea 11/22/22 04/29/24 Rx oral powder packet (Miralax) ezetimibe 10 mg tablet (Zetia) 10 mg PO DAILY 12/24/22 04/29/24 History nicotine 14 mg/24 hr daily 1 patch transdermal DAILY 12/24/22 04/29/24 History transdermal patch ergocalciferol (vitamin D2) 1,250 1,250 mcg PO WEEKLY 04/29/23 04/29/24 History mcg (50,000 unit) capsule baclofen 10 mg tablet 10 mg PO TID 3 days #10 tabs 07/01/23 04/29/24 Rx Unithroid 112 mcg tablet 112 mcg PO DAILY #90 tabs 04/14/24 04/29/24 Rx (levothyroxine) cholecalciferol (vitamin D3) 25 25 mcg PO DAILY 04/29/24 04/29/24 History mcg (1,000 unit) tablet Patient hx anesthesia problems: none Family hx anesthesia problems: none Results Review: All pre-operative results and documents have been reviewed as part of the pre-operative evaluation. [facility] Past Medical History Medical History Hypertension Arthritis COPD (chronic obstructive pulmonary disease) Osteopenia Anxiety and depression High cholesterol Thyroid disease Surgical History Surgical History History of hernia repair History of knee surgery History of sinus surgery History of cholecystectomy Family History Family History Sibling Carcinoma of colon Social History Social History Smoking status: Current every day smoker Tobacco type: cigarettes Alcohol intake: never Substance use: never Substance use type: does not use Do You Feel Safe in your Home?: Yes Lack of Transportation: No Lack of Food: Never True Current Housing: I Do Not Have Housing Concerned About Future Housing: No Difficulty Paying Gas/Electric Bills: No Difficulty Paying for Meds: No Currently Unemployed: No Education: High School Diploma/GED Difficulty w/ Childcare or Family Care: No Gender identity (if verbalized by the patient): Female Anes - Eval Final PreProcedure Day of Procedure 05/17/24 09:43 Patient weight: cachectic Heart: regular rate and rhythm Lungs: decreased breath sounds Airway: Mallampati scale class II Neurological: alert and oriented Last oral intake: >/= 8 hours ASA classification: III Emergent: no Anesthetic plan: proceed Anesthesia type and monitoring: general GIVS and standard monitoring Results Review: All pre-operative results and documents have been reviewed as part of the pre-operative evaluation. Informed Consent: The patient's anesthetic plan and its attendant risks and benefits were discussed with the patient/family/POA. Questions were solicited and answers provided to the satisfaction of the patient/family/POA.
[2024-05-17] MEDS: LACTATED RINGERS 1,000 ML 150 ML IV CONT (09:45)
[2024-05-17 10:00] VITALS: BP 92/53; PULSE 66; RESP 20; O2SAT 97
[2024-05-17 10:10] VITALS: BP 98/63; PULSE 71; RESP 20; O2SAT 98
[2024-05-17 10:20] VITALS: BP 131/79; PULSE 65; RESP 18; O2SAT 100
== END 2024-05-17 10:31 | disposition home or self-care (01) ==
PROVIDERS: PCP Registered Nurse; Referring Provider Registered Nurse; Visit Provider Internal Medicine Gastroenterology
PROC: 0DJD8ZZ Inspection of Lower Intestinal Tract, Via Natural or Artificial Opening Endoscopic (ICD-10-PCS; CPT 45378; principal; 2024-05-17 11:00)
DX: Z12.11 Encounter for screening for malignant neoplasm of colon (principal); D12.4 Benign neoplasm of descending colon; K57.30 Diverticulosis of large intestine without perforation or abscess without bleeding; K64.8 Other hemorrhoids; F17.210 Nicotine dependence, cigarettes, uncomplicated; R64 Cachexia; Z68.1 Body mass index [BMI] 19.9 or less, adult; Z80.0 Family history of malignant neoplasm of digestive organs
CPT/HCPCS: 45380; 88305; J2704; J7120

== ENCOUNTER 2024-09-16 09:06 | Outpatient (CLI) | payer MEDICARE, MEDICAID, SELFPAY ==
[2024-09-16 10:22] LABS: Thyroid Stimulating Hormone 0.229 uIU/mL (0.465-4.680)
[2024-09-16 10:36] LABS: Free T4 Free Thyroxine 1.14 ng/dL (0.78-2.19)
== END 2024-09-16 09:07 | disposition home or self-care (01) ==
PROVIDERS: PCP Registered Nurse; Visit Provider Internal Medicine
DX: M85.80 Other specified disorders of bone density and structure, unspecified site (principal); I10 Essential (primary) hypertension; E03.9 Hypothyroidism, unspecified
CPT/HCPCS: 36415; 84439; 84443

== ENCOUNTER 2024-12-13 10:54 | Outpatient (CLI) | payer MEDICARE, MEDICAID, SELFPAY ==
[2024-12-13 12:32] LABS: Free T4 Free Thyroxine 1.11 ng/dL (0.78-2.19)
[2024-12-13 12:38] LABS: Thyroid Stimulating Hormone 4.020 uIU/mL (0.465-4.680)
== END 2024-12-13 10:55 | disposition home or self-care (01) ==
PROVIDERS: PCP Registered Nurse; Visit Provider Internal Medicine
DX: I10 Essential (primary) hypertension (principal)
CPT/HCPCS: 36415; 84439; 84443

== ENCOUNTER 2025-03-15 12:40 | Outpatient (CLI) | payer MEDICARE, MEDICAID, SELFPAY ==
--- OUTSIDE RECORDS SUMMARY | 2025-03-15 12:48 | XMS_ITS | Data Portability ---
Author Organization [facility] CLAUDIORonak Gallegos Address [address] [place] [address] Care Team Providers Care Space Planner Name Role Phone CAIO GARZON Primary Care Provider NADEEM VIVAS Manager Nursing DANIE MORALES Soil Surveyor ROSA MARIA POLANCO Therapist Respiratory Assessment No assessment recorded. Plan of Treatment Reminders Order Date Submit Date Provider Last Modified By Organization Details Last Modified Time Details Appointments ANY 10 2025 08:30A M Nadeem Vivas MD Not available Not available Not available ANY 2025 10:00A M SIM Banegas- Not available Not available Not available Lab lipid panel , serum 2024 025 [facility], [address] [place] [address], [address], [place], [address], 01/04/2025 11:15:31 album in/cr eatin ine, mass ratio , urine 2024 025 [facility], [address] [place] [address], [address], [place], [address], 01/04/2025 11:15:30 CMP, serum or plasm a 2024 025 [facility], [address] [place] [address], [address], [place], [address], 01/04/2025 11:15:32 amyla se + lipas e, serum 2024 025 ALBERT LAMIN, RuslanElke Veronica, [address], [place], [address], 12/07/2024 08:33:47 CBC w/ auto diff 2024 025 ALBERT JIMENEZARIEL, Linda Veronica, [address], [place], [address], 12/07/2024 08:33:46 CMP, serum or plasm a 2024 025 ALBERT LAMIN, Linda Veronica, [address], [place], [address], 12/07/2024 08:33:45 urina lysis , dipst ick 2024 025 ALBERT In-Office Order, Internal Use Only DO Not Attach Compendium DO Not Attach Compendium, Do Not Delete/merge, [id number] 12/06/2024 13:27:58 cytol ogy repor t, thin prep, smear or scrap ing, cervi shan or vagin al 2024 025 ALBERTMARIJA KIMBLE, Linda Veronica, [address], [place], [address], 09/22/2024 15:32:20 vitam in D, 25-hy droxy , total , serum 2024 025 ALBERT LAMIN, Linda Veronica, [address], [place], [address], 09/21/2024 08:29:26 HIV 1 + 2, meani ngful use set 2024 025 ALBERTMARIJA KIMBLE, Linda Veronica, [address], [place], [address], 09/21/2024 08:29:27 Referral None recor ded. Procedures pulse oxime try (PROC ) 2024 025 [email or web address] In-Office Order, Internal Use Only DO Not Attach Compendium DO Not Attach Compendium, Do Not Delete/merge, [id number] 01/03/2025 12:40:09 pulse oxime try (PROC ) 2024 025 [email or web address] In-Office Order, Internal Use Only DO Not Attach Compendium DO Not Attach Compendium, Do Not Delete/merge, [id number] 10/04/2024 11:54:00 pulmo nary stres s test, simpl e (PROC ) 2024 025 [email or web address] [facility] [address], [place], [address], 03/11/2025 13:50:11 Surgeries None recor ded. Imaging US, duple x, abdom en, compl ete 2024 025 ALBERT [facility] (Rad), [address], [place], [address], 12/11/2024 17:04:17 PFT, compl ete - W/ Post [facility] hodil ator [place] 2024 025 [email or web address] [facility] ([facility]), [address], [place], [address], 03/11/2025 13:49:59 unlis akshat imagi ng order - CT lung scree bri low-d ose 2024 025 [facility] ([facility]), [address], [place], [address], 02/28/2025 09:31:02 MAMMO , scree bri, bilat eral 2024 025 [email or web address] [facility] ([facility]), [address], [place], [address], 02/08/2025 10:01:32 Medication Orders prava stati n 40 mg table t 2024 [facility], [address] [place] [address], [id number], 01/03/2025 12:40:29 Zetia 10 mg table t 2024 [facility], [address] [place] [address], [id number], 01/03/2025 12:40:31 gabap entin 800 mg table t 2024 [facility], [address] [place] [address], [id number], 01/03/2025 12:40:31 Wendy dorothy HFA 90 mcg/a ctuat ion aeros ol inhal er 2024 [facility], [address] [place] [address], [id number], 01/03/2025 12:40:33 monte zita t 10 mg table t 2024 [facility], [address] [place] [address], [id number], 01/03/2025 12:40:34 Incru se Ellip ta 62.5 mcg/a ctuat ion powde r for inhal ation 2024 [facility], [address] [place] [address], [id number], 01/03/2025 12:40:34 cital opram 20 mg table t 2024 [facility], [address] [place] [address], [address], 01/03/2025 12:40:33 losar linton 50 mg-hy droch lorot hiazi de 12.5 mg table t 2024 [facility], [address] [place], [address], 01/03/2025 12:40:31 fluti luan e propi shante 50 mcg/a ctuat ion nasal spray ,susp ensio n 2024 [facility], [address] [place], [address], 01/03/2025 12:40:32 ketor olac 60 mg/2 mL intra muscu lar solut ion 2024 [email or web address] a Not available 12/06/2024 17:24:52 ketor olac 10 mg table t 2024 025 [facility], [address] [place] [address], [id number], 12/06/2024 13:03:02 prava stati n 40 mg table t 2024 025 [facility], [address] [place] [address], [address], 10/04/2024 11:54:11 Zetia 10 mg table t 2024 025 [facility], [address] [place], [address], 10/04/2024 11:54:09 gabap entin 800 mg table t 2024 025 [facility], [facility] [place] [place], [address], 10/04/2024 11:54:10 Wendy dorothy HFA 90 mcg/a ctuat ion aeros ol inhal er 2024 025 [facility], [address] [place] [address], [id number], 10/04/2024 11:54:08 monte zita t 10 mg table t 2024 [facility], [address] [place] [address], [address], 10/04/2024 11:54:09 Incru se Ellip ta 62.5 mcg/a ctuat ion powde r for inhal ation 2024 [facility], [address] [place] [address], [address], 10/04/2024 11:54:14 cital opram 20 mg table t 2024 [facility], [address] [place] [address], [address], 10/04/2024 11:54:09 losar linton 50 mg-hy droch lorot hiazi de 12.5 mg table t 2024 [facility], [address] [place] [address], [address], 10/04/2024 11:54:09 fluti luan e propi shante 50 mcg/a ctuat ion nasal spray ,susp ensio n 2024 [facility], [address] [place] [address], [id number], 10/04/2024 11:54:07 Wendy dorothy HFA 90 mcg/a ctuat ion aeros ol inhal er 2024 [facility], [address] [place] [address], [id number], 09/27/2024 10:15:48 Calci um with Vitam in D 600 mg-10 mcg (400 unit) table t 2024 025 [facility], [address] [place] [address], [id number], 09/20/2024 12:22:31 Patient TargetsNo targets recorded. Patient Instructions Encounter Date Encounter Id Patient Instructions Last Modified By Organization Details Last Modified Time 09/20/2024 [id number] Quitting Tobacco : Care Instructions yarauz Not available 09/20/2024 12:22:27 well visit, pari n 50 to 65: care instructions yarauz Not available 09/20/2024 12:22:26 learning about breast cancer screening yarauz Not available 09/20/2024 12:22:27 preventing osteoporosis: care instructions yarauz Not available 09/20/2024 12:22:26 HIV testing: car e instructions yarauz Not available 09/20/2024 12:22:26 SBE teaching/handout Calcium in diet plus vitamin D daily exercise monitor diet see dentist every 6 months see opthalmologist every 1-2 years HIV testing recommendation condoms prn contraceptive options-pt is postmenopausal new guidelines--pap with Hpv in 3-5 years--pelvic exam every year Mammogram yearly after age 40 Check B/P once yearly stop smoking yarauz Not available 09/20/2024 13:38:59 09/27/2024 [id number] chronic obstructive pulmonary disease (COPD): care instructions ajamous Not available 09/27/2024 10:15:16 chronic obstructive pulmonary disease (COPD): care instructions ajamous Not available 09/27/2024 10:15:16 learning about copd ajamous Not available 09/27/2024 10:15:16 chronic cough: care instructions ajamous Not available 09/27/2024 10:15:16 allergies: care instructions ajamous Not available 09/27/2024 10:15:16 managing your allergies: care instructions ajamous Not available 09/27/2024 10:15:16 seasonal allergies: care instructions ajamous Not available 09/27/2024 10:15:16 Quitting Tobacco : Care Instructions ajamous Not available 09/27/2024 10:15:16 chronic obstructive pulmonary disease (COPD): care instructions ajamous Not available 09/27/2024 10:15:16 learning about copd and how to prevent lung infections ajamous Not available 09/27/2024 10:15:16 10/04/2024 [id number] high cholesterol : care instructions yarauz Not available 10/04/2024 11:54:00 osteoarthritis: care instructions yarauz Not available 10/04/2024 11:54:00 Quitting Tobacco : Care Instructions yarauz Not available 10/04/2024 11:54:00 chronic obstructive pulmonary disease (COPD): care instructions yarauz Not available 10/04/2024 11:54:00 learning about copd and how to prevent lung infections yarauz Not available 10/04/2024 11:54:00 deciding about stopping your antidepressant yarauz Not available 10/04/2024 11:54:00 depression and chronic disease: care instructions yarauz Not available 10/04/2024 11:54:00 depression treatment: care instructions yarauz Not available 10/04/2024 11:54:01 Preventing Depression From Coming Back: Care Instructions yarauz Not available 10/04/2024 11:54:00 recovering from depression: care instructions yarauz Not available 10/04/2024 11:54:00 seasonal affecti ve disorder: care instructions yarauz Not available 10/04/2024 11:54:00 suicidal thought s in a family member: care instructions yarauz Not available 10/04/2024 11:54:00 learning about mood disorders yarauz Not available 10/04/2024 11:54:00 learning about high blood pressure yarauz Not available 10/04/2024 11:54:01 chronic sinusiti s: care instructions yarauz Not available 10/04/2024 11:54:00 hypothyroidism: care instructions yarauz Not available 10/04/2024 11:54:00 Uncontrolled Hypertension potential risks, heart attack, , stroke, kidney failure etc. Hypertension is the silent Killer Take your Hypertension medication daily keep appointments stop concentrated sugars--follow 1500 meal plan exercise 50-60 minutes daily on most days see eye doctor once a year see dentist every 6 months Benefits risks of psychotropic medications if you develop suicidal thoughts or behaviors seek immediate reevaluation avoid alcohol when taking psychotropic medications if you develop fevers, chills, diarrhea, muscle symptoms or seizures to seek immediate reevaluation take your medicine as directed Pt. advised to call 911 or go to a local Emergency Department with any SI or HI, thoughts of self harm or any psychiatric emergency. Pt. is deemed safe and appropriate for continued out patient treatment. Pt. advised of the risk benefit ratio of medication, possible side effects and interactions of the meditations. Pt. wishes to continue with the treatment plan. Pt. advised to call or come in sooner than the scheduled appt. if there are any worsening of symptoms or problems with the medication vaccine yarauz Not available 10/04/2024 11:43:05 12/06/2024 [id number] ultrasound, abdominal: patient instructions yarauz Not available 12/06/2024 13:00:55 if worsening abdominal pain seek immediate re-evaluation at nearest ER yarauz Not available 12/06/2024 13:01:55 increase fiber, fruits, veggies etc., may try Fiber one prn Increase daily water intake will call if test results abnormal apply warm compression to abd as necessary get u/s today akira will give note to return to work 12/08/2024 yarauz Not available 12/06/2024 13:02:55 01/03/2025 [id number] osteoarthritis: care instructions yarauz Not available 01/03/2025 12:40:10 Quitting Tobacco : Care Instructions yarauz Not available 01/03/2025 12:40:10 chronic obstructive pulmonary disease (COPD): care instructions yarauz Not available 01/03/2025 12:40:09 learning about copd and how to prevent lung infections yarauz Not available 01/03/2025 12:40:10 deciding about stopping your antidepressant yarauz Not available 01/03/2025 12:40:10 depression and chronic disease: care instructions yarauz Not available 01/03/2025 12:40:09 depression treatment: care instructions yarauz Not available 01/03/2025 12:40:10 Preventing Depression From Coming Back: Care Instructions yarauz Not available 01/03/2025 12:40:10 recovering from depression: care instructions yarauz Not available 01/03/2025 12:40:10 seasonal affecti ve disorder: care instructions yarauz Not available 01/03/2025 12:40:09 suicidal thought s in a family member: care instructions yarauz Not available 01/03/2025 12:40:10 learning about mood disorders yarauz Not available 01/03/2025 12:40:10 learning about high blood pressure yarauz Not available 01/03/2025 12:40:09 chronic sinusiti s: care instructions yarauz Not available 01/03/2025 12:40:10 hypothyroidism: care instructions yarauz Not available 01/03/2025 12:40:10 Uncontrolled Hypertension potential risks, heart attack, , stroke, kidney failure etc. Hypertension is the silent Killer Take your Hypertension medication daily keep appointments stop concentrated sugars--follow 1500 meal plan exercise 50-60 minutes daily on most days see eye doctor once a year see dentist every 6 months Benefits risks of psychotropic medications if you develop suicidal thoughts or behaviors seek immediate reevaluation avoid alcohol when taking psychotropic medications if you develop fevers, chills, diarrhea, muscle symptoms or seizures to seek immediate reevaluation take your medicine as directed Pt. advised to call 911 or go to a local Emergency Department with any SI or HI, thoughts of self harm or any psychiatric emergency. Pt. is deemed safe and appropriate for continued out patient treatment. Pt. advised of the risk benefit ratio of medication, possible side effects and interactions of the meditations. Pt. wishes to continue with the treatment plan. Pt. advised to call or come in sooner than the scheduled appt. if there are any worsening of symptoms or problems with the medication vaccine dalia Not available 01/03/2025 12:34:11 Reason for Referral None Reported. Results Created Date Observation Date Name Description Value Unit Range Abnormal Flag Note LastModifiedBy Organization Detail LastModifiedTime 08/31/1908/30/2024 pulse oxime try (PROC ) Resting Pulse Ox 99 Not Available In-Off ice Order Internal Use Only DO Not Attach Compendium DO Not Attach Compendium, Do Not Delete/merge, [id number] 08/30/2024 10:58:17 09/21/1909/21/2024 VITAM IN D, 25-HY DROXY vitamin D, 25-hydroxy 43.5 NG/mL 30.0-1 00.0 Vitam in D defic iency has been defin ed [facility] and an Endoc aarti Socie ty pract ice guide line as a level of serum 25-OH vitam in D less than 20 ng/mL (1,2) . The Endoc josuee Socie ty went on to pending sale to [facility] defin e vitam in D insuf ficie ncy as a level betwe en 21 and 29 ng/mL (2). 1. IOM (Inst itute of Medic ine). 2010. Dieta ry refer ence intak es for calci um and D. Bautista santos [place]: [employer] [facility] . 2. Abdoul robles [place], Aris cevallos [place], Roshni off-F errar i COSTELLO, et al. Evalu ation , treat ment, and preve ntion of vitam in D defic iency : an Endoc rine Socie ty clini shan pract ice guide line. JCEM. 2010; 96(7) :1911 -30. Not Available [facility] ([facility]) [address] [facility] [address], [place], [address], 09/21/2024 08:29:26 09/21/19 25 09/21/2024 HIV AB/P2 4 AG WITH REFLE X HIV Ab/P24 Ag screen NON REACTI VE nonrea ctive HIV-1 /HIV- 2 antib odies and HIV-1 p24 antig en were NOT detec akshat. There is no labor atory evide nce of HIV infec tion. HIV Negat mya Not Available [facility] ([facility]) [address] [facility], [place], [address], 09/21/2024 08:29:27 09/21/19 25 09/22/2024 IGP, APTIM A HPV, RFX 16/18 ,45 diagnosis: COMMEN T NEGAT MYA FOR INTRA EPITH ELIAL LESIO N OR MALIG EMMA . Not Available [facility] ([facility]) [address] [facility], [place], [address], 09/22/2024 15:32:20 09/21/19 25 09/22/2024 IGP, APTIM A HPV, RFX 16/18 ,45 specimen adequacy: COMMEN T Satis facto ry for evalu ation . Endoc ervic al and/o r squam ous metap lasti c cells (endo cervi shan compo nent) are prese nt. Not Available [facility] ([facility]) [address] [place], [address], 09/22/2024 15:32:20 09/21/19 25 09/22/2024 IGP, APTIM A HPV, RFX 16/18 ,45 clinician provided ICD10: BESS Carmona M85.8 0 Z11.4 Z01.4 19 Not Available [facility] ([facility]) [address] [place], [address], 09/22/2024 15:32:20 09/21/19 25 09/22/2024 IGP, APTIM A HPV, RFX 16/18 ,45 performed by: BESS honeycutt Cytol ogist (ASCP ) Not Available [facility] ([facility]) [address] [place], [address], 09/22/2024 15:32:20 09/21/19 25 09/22/2024 IGP, APTIM A HPV, RFX 16/18 ,45 . . Not Available [facility] ([facility]) [address] [place], [address], 09/22/2024 15:32:20 09/21/19 25 09/22/2024 IGP, APTIM A HPV, RFX 16/18 ,45 note: BESS Carmona The Pap smear is a scree bri test desig arielle to aid in the detec tion of deuce ligna nt and malig nant condi tions of the uteri ne cervi x. It is not a diagn ostic proce dure and shoul d not be used as the sole means of detec ting cervi shan cance r. Both false -posi tive and false -nega tive repor ts do occur . Not Available [facility] ([facility]) [address] [place], [address], 09/22/2024 15:32:20 09/21/19 25 09/22/2024 IGP, APTIM A HPV, RFX 16/18 ,45 test methodology: BESS Carmona This liqui d based ThinP rep(R ) pap test was scree arielle with the use of an image guide jesse mahan Not Available [facility] ([facility]) [address] [facility], [place], [address], 09/22/2024 15:32:20 09/21/19 25 09/22/2024 IGP, APTIM A HPV, RFX 16/18 ,45 HPV aptima NEGATI VE negati ve This nucle ic acid ampli ficat ion test detec ts fourt een high- risk HPV types (16,1 8,31, 33,35 ,39,4 5,51, 52,56 ,58,5 9,66, 68) witho ut diffe renti ation . Not Available [facility] ([facility]) [address] [facility], [place], [address], 09/22/2024 15:32:20 09/21/19 25 09/22/2024 IGP, APTIM A HPV, RFX 16/18 ,45 HPV genotype reflex COMMEN T Crite eileen not met, HPV Genot ype not perfo rmed. Not Available [facility] ([facility]) [address] [facility], [place], [address], 09/22/2024 15:32:20 10/05/19 25 10/04/2024 pulse oxime try (PROC ) Resting Pulse Ox 95% Not Available In-Off ice Order Internal Use Only DO Not Attach Compendium DO Not Attach Compendium, Do Not Delete/merge, [id number] 10/04/2024 10:32:59 12/07/19 25 12/07/2024 CMP14 +EGFR glucose 87 mg/dL 70-99 Not Available [facility] ([facility]) [address] [facility], [place], [address], 12/07/2024 08:33:45 12/07/19 25 12/07/2024 CMP14 +EGFR BUN 8 mg/dL 8-27 Not Available [facility] ([facility]) [address] [place], [address], 12/07/2024 08:33:45 12/07/19 25 12/07/2024 CMP14 +EGFR creatinine 0.72 mg/dL 0.57-1 .00 Not Available [facility] ([facility]) [address] [facility] [place], [address], 12/07/2024 08:33:45 12/07/19 25 12/07/2024 CMP14 +EGFR eGFR 93 mL/mi n/1.7 3 >59 Not Available [facility] ([facility]) [address] [facility] [place], [address], 12/07/2024 08:33:45 12/07/1912/07/2024 CMP14 +EGFR BUN/creatini ne ratio 11 12-28 below low normal Not Available [facility] ([facility]) [address] [facility] [place], [address], 12/07/2024 08:33:45 12/07/19 25 12/07/2024 CMP14 +EGFR sodium 137 mmol/ L 134-14 4 Not Available [facility] ([facility]) [address] [facility] [place], [address], 12/07/2024 08:33:45 12/07/19 25 12/07/2024 CMP14 +EGFR potassium 4.8 mmol/ L 3.5-5. 2 Not Available [facility] ([facility]) [address] [facility] [place], [address], 12/07/2024 08:33:45 12/07/19 25 12/07/2024 CMP14 +EGFR chloride 95 mmol/ L 96-106 below low normal Not Available [facility] ([facility]) [address] [place], [address], 12/07/2024 08:33:45 12/07/19 25 12/07/2024 CMP14 +EGFR carbon dioxide, total 27 mmol/ L 20-29 Not Available [facility] ([facility]) [address] [facility] [place], [address], 12/07/2024 08:33:45 12/07/1912/07/2024 CMP14 +EGFR calcium 9.0 mg/dL 8.7-10 .3 Not Available [facility] ([facility]) [address], [place], [address], 12/07/2024 08:33:45 12/07/1912/07/2024 CMP14 +EGFR protein, total 7.1 g/dL 6.0-8. 5 Not Available [facility] ([facility]) [address], [place], [address], 12/07/2024 08:33:45 12/07/1912/07/2024 CMP14 +EGFR albumin 4.5 g/dL 3.9-4. 9 Not Available [facility] ([facility]) [address], [place], [address], 12/07/2024 08:33:45 12/07/1912/07/2024 CMP14 +EGFR globulin, total 2.6 g/dL 1.5-4. 5 Not Available [facility] ([facility]) [address], [place], [address], 12/07/2024 08:33:45 12/07/1912/07/2024 CMP14 +EGFR bilirubin, total 0.4 mg/dL 0.0-1. 2 Not Available [facility] ([facility]) [address], [place], [address], 12/07/2024 08:33:45 12/07/1912/07/2024 CMP14 +EGFR alkaline phosphatase 82 IU/L 49-135 Ple ase note refer ence brandy reynoso e Not Available [facility] ([facility]) [address] [facility], [place], [address], 12/07/2024 08:33:45 12/07/19 25 12/07/2024 CMP14 +EGFR AST (SGOT) 21 IU/L 0-40 Not Available [facility] ([facility]) [address] [facility], [place], [address], 12/07/2024 08:33:45 12/07/19 25 12/07/2024 CMP14 +EGFR ALT (SGPT) 17 IU/L 0-32 Not Available [facility] ([facility]) [address] [facility], [place], [address], 12/07/2024 08:33:45 12/07/1912/07/2024 CBC WITH DIFFE RENTI AL/PL ATELE T WBC 8.1 x10e3 /uL 3.4-10 .8 Not Available [facility] ([facility]) [address] [facility], [place], [address], 12/07/2024 08:33:46 12/07/19 25 12/07/2024 CBC WITH DIFFE RENTI AL/PL ATELE T RBC 5.01 x10e6 /uL 3.77-5 .28 Not Available [facility] ([facility]) [address] [facility], [place], [address], 12/07/2024 08:33:46 12/07/1912/07/2024 CBC WITH DIFFE RENTI AL/PL ATELE T hemoglobin 15.8 g/dL 11.1-1 5.9 Not Available [facility] ([facility]) [address] [place], [address], 12/07/2024 08:33:46 12/07/1912/07/2024 CBC WITH DIFFE RENTI AL/PL ATELE T hematocrit 47.8 % 34.0-4 6.6 above high normal Not Available [facility] ([facility]) [address] [place], [address], 12/07/2024 08:33:46 12/07/19 25 12/07/2024 CBC WITH DIFFE RENTI AL/PL ATELE T MCV 95 fL 79-97 Not Available [facility] ([facility]) [address] [facility], [place], [address], 12/07/2024 08:33:46 12/07/19 25 12/07/2024 CBC WITH DIFFE RENTI AL/PL ATELE T MCH 31.5 pg 26.6-3 3.0 Not Available [facility] ([facility]) [address] [facility], [place], [address], 12/07/2024 08:33:46 12/07/1912/07/2024 CBC WITH DIFFE RENTI AL/PL ATELE T MCHC 33.1 g/dL 31.5-3 5.7 Not Available [facility] ([facility]) [address] [place], [address], 12/07/2024 08:33:46 12/07/1912/07/2024 CBC WITH DIFFE RENTI AL/PL ATELE T RDW 12.7 % 11.7-1 5.4 Not Available [facility] ([facility]) [address] [place], [address], 12/07/2024 08:33:46 12/07/1912/07/2024 CBC WITH DIFFE RENTI AL/PL ATELE T platelets 454 x10e3 /uL 150-45 0 above high normal Not Available [facility] ([facility]) [address] [place], [address], 12/07/2024 08:33:46 12/07/1912/07/2024 CBC WITH DIFFE RENTI AL/PL ATELE T neutrophils 67 % notest ab. Not Available [facility] [facility] [address] [place], [address], 12/07/2024 08:33:46 12/07/1912/07/2024 CBC WITH DIFFE RENTI AL/PL ATELE T lymphs 23 % notest ab. Not Available [facility] ([facility]) [address] [facility], [place], [address], 12/07/2024 08:33:46 12/07/19 25 12/07/2024 CBC WITH DIFFE RENTI AL/PL ATELE T monocytes 8 % notest ab. Not Available [facility] ([facility]) [address] [facility], [place], [address], 12/07/2024 08:33:46 12/07/19 25 12/07/2024 CBC WITH DIFFE RENTI AL/PL ATELE T eos 1 % notest ab. Not Available [facility] ([facility]) [address] [facility], [place], [address], 12/07/2024 08:33:46 12/07/19 25 12/07/2024 CBC WITH DIFFE RENTI AL/PL ATELE T basos 1 % notest ab. Not Available [facility] ([facility]) [address] [facility], [place], [address], 12/07/2024 08:33:46 12/07/19 25 12/07/2024 CBC WITH DIFFE RENTI AL/PL ATELE T neutrophils (absolute) 5.4 x10e3 /uL 1.4-7. 0 Not Available [facility] ([facility]) [address] [facility], [place], [address], 12/07/2024 08:33:46 12/07/19 25 12/07/2024 CBC WITH DIFFE RENTI AL/PL ATELE T lymphs (absolute) 1.9 x10e3 /uL 0.7-3. 1 Not Available [facility] ([facility]) [address] [facility], [place], [address], 12/07/2024 08:33:46 12/07/19 25 12/07/2024 CBC WITH DIFFE RENTI AL/PL ATELE T monocytes(ab solute) 0.7 x10e3 /uL 0.1-0. 9 Not Available [facility] ([facility]) [address] [place], [address], 12/07/2024 08:33:46 12/07/19 25 12/07/2024 CBC WITH DIFFE RENTI AL/PL ATELE T eos (absolute) 0.1 x10e3 /uL 0.0-0. 4 Not Available [facility] ([facility]) [address] [place], [address], 12/07/2024 08:33:46 12/07/19 25 12/07/2024 CBC WITH DIFFE RENTI AL/PL ATELE T baso (absolute) 0.1 x10e3 /uL 0.0-0. 2 Not Available [facility] ([facility]) [address] [place], [address], 12/07/2024 08:33:46 12/07/1912/07/2024 CBC WITH DIFFE RENTI AL/PL ATELE T immature granulocytes 0 % notest ab. Not Available [facility] ([facility]) [address] [place], [address], 12/07/2024 08:33:46 12/07/19 25 12/07/2024 CBC WITH DIFFE RENTI AL/PL ATELE T immature grans (abs) 0.0 x10e3 /uL 0.0-0. 1 Not Available [facility] ([facility]) [address] [place], [address], 12/07/2024 08:33:46 12/07/1912/07/2024 SANDRA+L IPASE amylase 85 U/L 31-110 Not Available [facility] ([facility]) [address] [place], [address], 12/07/2024 08:33:47 12/07/19 25 12/07/2024 SANDRA+L IPASE lipase 25 U/L 14-72 Not Available [facility] ([facility]) [address] [facility], [place], [address], 12/07/2024 08:33:47 12/07/1912/06/2024 urina lysis , dipst ick Leukocytes Negati ve Not Available In-Office Order Internal Use Only DO Not Attach Compendium DO Not Attach Compendium, Do Not Delete/merge, 12/06/2024 12:59:04 12/07/1912/06/2024 urina lysis , dipst ick Nitrite negati ve Not Available In-Office Order Internal Use Only DO Not Attach Compendium DO Not Attach Compendium, Do Not Delete/merge, 12/06/2024 12:59:04 12/07/1912/06/2024 urina lysis , dipst ick Urobilinogen .2 Not Available In-Of fice Order Internal Use Only DO Not Attach Compendium DO Not Attach Compendium, Do Not Delete/merge, [id number] 12/06/2024 12:59:04 12/07/1912/06/2024 urina lysis , dipst ick Protein Negati ve Not Available In-Office Order Internal Use Only DO Not Attach Compendium DO Not Attach Compendium, Do Not Delete/merge, [id number] 12/06/2024 12:59:04 12/07/1912/06/2024 urina lysis , dipst ick pH 7.5 Not Available In-Office Order Internal Use Only DO Not Attach Compendium DO Not Attach Compendium, Do Not Delete/merge, [id number] 12/06/2024 12:59:04 12/07/1912/06/2024 urina lysis , dipst ick Blood Negati ve Not Available In-Office Order Internal Use Only DO Not Attach Compendium DO Not Attach Compendium, Do Not Delete/merge, [id number] 12/06/2024 12:59:04 12/07/1912/06/2024 urina lysis , dipst ick Specific Adams 1.015 Not Available In-Off ice Order Internal Use Only DO Not Attach Compendium DO Not Attach Compendium, Do Not Delete/merge, [facility] 12/06/2024 12:59:04 12/07/1912/06/2024 urina lysis , dipst ick Ketone Negati ve Not Available In-Office Order Internal Use Only DO Not Attach Compendium DO Not Attach Compendium, Do Not Delete/merge, [facility] 12/06/2024 12:59:04 12/07/1912/06/2024 urina lysis , dipst ick Bilirubin Negati ve Not Available In-Office Order Internal Use Only DO Not Attach Compendium DO Not Attach Compendium, Do Not Delete/merge, [facility] 12/06/2024 12:59:04 12/07/1912/06/2024 urina lysis , dipst ick Glucose Negati ve Not Available In-Office Order Internal Use Only DO Not Attach Compendium DO Not Attach Compendium, Do Not Delete/merge, [facility] 12/06/2024 12:59:04 12/07/1912/06/2024 urina lysis , dipst ick Appearance Clear Not Available In-Offi ce Order Internal Use Only DO Not Attach Compendium DO Not Attach Compendium, Do Not Delete/merge, [facility] 12/06/2024 12:59:04 12/07/1912/06/2024 urina lysis , dipst ick Color Yellow Not Available In-Office Order Internal Use Only DO Not Attach Compendium DO Not Attach Compendium, Do Not Delete/merge, [facility] 12/06/2024 12:59:04 01/04/2001/04/2025 ALBUM IN/CR EATIN INE RATIO ,URIN E creatinine, urine 13.9 mg/dL notest ab. Not Available [facility] ([facility]) [address] [facility], [place], [address], 01/04/2025 11:15:30 01/04/20 25 01/04/2025 ALBUM IN/CR EATIN INE RATIO ,URIN E albumin, urine <3.0 ug/mL notest ab. Not Available [facility] ([facility]) [address] [facility], [place], [address], 01/04/2025 11:15:30 01/04/20 25 01/04/2025 ALBUM IN/CR EATIN INE RATIO ,URIN E alb/creat ratio <22 Lilli l: 0 - 29 Moder ately incre ased: 30 - 300 Sever guero incre ased: >300 Not Available [facility] ([facility]) [address] [place], [address], 01/04/2025 11:15:30 01/04/20 25 01/04/2025 LIPID PANEL cholesterol, total 173 mg/dL 100-19 9 Not Available [facility] ([facility]) [address] [place], [address], 01/04/2025 11:15:31 01/04/20 25 01/04/2025 LIPID PANEL triglyceride s 73 mg/dL 0-149 Not Available [facility] ([facility]) [address] [place], [address], 01/04/2025 11:15:31 01/04/20 25 01/04/2025 LIPID PANEL HDL cholesterol 58 mg/dL >39 Not Available [facility] ([facility]) [address] [place], [address], 01/04/2025 11:15:31 01/04/20 25 01/04/2025 LIPID PANEL VLDL cholesterol shan 14 mg/dL 5-40 Not Available [facility] ([facility]) [address] [place], [address], 01/04/2025 11:15:31 01/04/20 25 01/04/2025 LIPID PANEL LDL chol calc ([facility]) 101 mg/dL 0-99 above high normal Not Available [facility] ([facility]) [address] [place], [address], 01/04/2025 11:15:31 01/04/20 25 01/03/2025 COMP. METAB OLIC PANEL (14) interpretati on: COMMEN T GFR estim ate at the follo wing level for >or=3 month s is class ified as follo ws: GFR WITH KIDNE Y DAMAG E WITHO UT KIDNE Y DAMAG E >or=9 0 Stage 1 Lilli l 60-89 Stage 2 Decr eased GFR 30-59 Stage 3 Stage 3 15-29 Stage 4 Stage 4 <15 (or dialy sis) Stage 5 Stage 5 Estim ated GFR will over estim ate true GFR if serum creat inine is risin g as in acute renal failu re and will under estim ate true GFR if serum creat inine is decli bri as in resol ving acute renal failu re. Addit ional infor abimael rai may be found at [email or web address] org. Not Available [facility] ([facility]) [address] [place], [address], 01/04/2025 11:15:32 01/04/2001/04/2025 COMP. METAB OLIC PANEL (14) glucose 92 mg/dL 70-99 Not Available [facility] ([facility]) [address] [place], [address], 01/04/2025 11:15:32 01/04/20 25 01/04/2025 COMP. METAB OLIC PANEL (14) BUN 7 mg/dL 8-27 below low normal Not Available [facility] ([facility]) [address] [place], [address], 01/04/2025 11:15:32 01/04/20 25 01/04/2025 COMP. METAB OLIC PANEL (14) creatinine 0.72 mg/dL 0.57-1 .00 Not Available [facility] ([facility]) [address] [place], [address], 01/04/2025 11:15:32 01/04/20 25 01/04/2025 COMP. METAB OLIC PANEL (14) eGFR 93 mL/mi n/1.7 3 >59 Not Available [facility] ([facility]) [address] [facility] [place], [address], 01/04/2025 11:15:32 01/04/2001/04/2025 COMP. METAB OLIC PANEL (14) BUN/creatini ne ratio 10 12-28 below low normal Not Available [facility] ([facility]) [address] [facility], [place], [address], 01/04/2025 11:15:32 01/04/2001/04/2025 COMP. METAB OLIC PANEL (14) sodium 137 mmol/ L 134-14 4 Not Available [facility] ([facility]) [address] [facility], [place], [address], 01/04/2025 11:15:32 01/04/2001/04/2025 COMP. METAB OLIC PANEL (14) potassium 4.9 mmol/ L 3.5-5. 2 Not Available [facility] ([facility]) [address] [facility], [place], [address], 01/04/2025 11:15:32 01/04/2001/04/2025 COMP. METAB OLIC PANEL (14) chloride 96 mmol/ L 96-106 Not Available [facility] ([facility]) [address] [facility], [place], [address], 01/04/2025 11:15:32 01/04/20 25 01/04/2025 COMP. METAB OLIC PANEL (14) carbon dioxide, total 25 mmol/ L 20-29 Not Available [facility] ([facility]) [address] [facility], [place], [address], 01/04/2025 11:15:32 01/04/2001/04/2025 COMP. METAB OLIC PANEL (14) calcium 9.6 mg/dL 8.7-10 .3 Not Available [facility] ([facility]) [address] [facility], [place], [address], 01/04/2025 11:15:32 01/04/2001/04/2025 COMP. METAB OLIC PANEL (14) protein, total 7.6 g/dL 6.0-8. 5 Not Available [facility] ([facility]) [address] [facility], [place], [address], 01/04/2025 11:15:32 01/04/20 25 01/04/2025 COMP. METAB OLIC PANEL (14) albumin 4.5 g/dL 3.9-4. 9 Not Available [facility] ([facility]) [address] [facility], [place], [address], 01/04/2025 11:15:32 01/04/2001/04/2025 COMP. METAB OLIC PANEL (14) globulin, total 3.1 g/dL 1.5-4. 5 Not Available [facility] ([facility]) [address] [facility], [place], [address], 01/04/2025 11:15:32 01/04/2001/04/2025 COMP. METAB OLIC PANEL (14) bilirubin, total 0.4 mg/dL 0.0-1. 2 Not Available [facility] ([facility]) [address] [facility], [place], [address], 01/04/2025 11:15:32 01/04/2001/04/2025 COMP. METAB OLIC PANEL (14) alkaline phosphatase 81 IU/L 49-135 Not Available [facility] ([facility]) [address] [facility], [place], [address], 01/04/2025 11:15:32 01/04/2001/04/2025 COMP. METAB OLIC PANEL (14) AST (SGOT) 21 IU/L 0-40 Not Available [facility] ([facility]) [address] [place], [address], 01/04/2025 11:15:32 01/04/2001/04/2025 COMP. METAB OLIC PANEL (14) ALT (SGPT) 21 IU/L 0-32 Not Available [facility] ([facility]) [address] [facility], [place], [address], 01/04/2025 11:15:32 01/04/20 25 01/03/2025 pulse oxime try (PROC ) Resting Pulse Ox 97 Not Available In-Off ice Order Internal Use Only DO Not Attach Compendium DO Not Attach Compendium, Do Not Delete/merge, [id number] 01/03/2025 11:59:28 11/09/19 PFT, compl ete No observ ation record ed. [email or web address] Not Available 2024 12:56:27 11/19/1911/08/2024 pulmo nary funct ion test* No observ ation record ed. [facility] Scheduling [address] [place], [address], 11/18/2024 17:57:05 12/12/1912/10/2024 US, duple x, abdom en, compl ete No observ ation record ed. [facility] Scheduling [address] [facility], [place], [address], 01/03/2025 12:41:07 Result Notes None recorded. Problems Name Problem SNOMED Code Status Onset Date Resolution Date Notes Provider Name and Address Organization Details Recorded Time Achilles tendiniti s 04091928 Completed 10/17/2014 Katia [place]a [place] [facility] 10:18:59 Chronic sinusitis 32373997 Active Kely Churchill [place] [facility] 12:36:19 Impaired glucose tolerance 6519227 Active MAME [place] [facility] 12:43:12 Chronic liver disease 567615979 Active Kely [place] [facility] 12:35:53 Pneumonia 782998956 Completed 11/20/2016 Kely [place] [facility] 10:36:30 Acute exacerbat ion of chronic obstructi ve pulmonary disease 668456169 Completed 11/20/2016 Kely [place] [facility] 10:36:25 Chest pain 72764795 Completed 07/25/2017 Kely [place] [facility] 09:51:51 Heel pain 6354217 Completed 10/17/2014 Katia Betancour t [place] [facility] 10:18:59 Hepatitis C antibody detected 320953319 Completed 11/20/2016 K[place] [facility] 10:36:42 Tobacco user 557341028 Active Kely [place] [facility] 12:38:15 Chronic obstructi ve pulmonary disease 77540770 Active Kely [place] [facility] 12:36:10 Essential hypertens ion 01011160 Active Kely [place] [facility] 12:36:49 Degenerat ion of lumbar intervert ebral disc 60251257 Active Kely [place] [facility] 12:36:30 Osteoarth ritis 313773386 Active Kely [place] [facility] 12:37:44 Hyperlipi demia 12708797 Active Kely [place] [facility] 12:37:01 Hypothyro idism 82992767 Active Kely [place] [facility] 12:37:15 Depressiv e disorder 32084017 Active Kely [place] [facility] 12:38:27 Osteopeni a 909101771 Completed 201703/19/2019 SIM Banegas-BEAN Attn: Sravan g,[address] [facility], [place], [address] [place] [facility] 12:21:24 Spondylos is 3809671 Active 2017 Kely [place] [facility] 12:43:30 Polyp of colon 16310923 Completed 201705/05/2020 K[place] [facility] 10:48:09 Genital warts 213218976 Active 2017 Kely [place] [facility] 12:43:05 Normal body mass index 00625999 Active 2018 Kely [place] [facility] 12:43:20 Pulmonary emphysema 49537964 Active 2018 Kely [place] [facility] 12:37:50 History of polyp of colon 201741412 Completed 201805/05/2020 GABBY Banegas Attn: Accountin g,[address] [place], [address], [place] [facility] 4 14:53:30 Osteopeni a with high fracture risk 585754566423 101 Active 2018 Kely [place] [facility] 12:38:01 Bilateral lung opacities on plain chest X-ray 687859245 Active 2021 Kely [place] [facility] 12:42:56 Lumbosacr al radiculop athy 7945060 Active 2021 SIM Banegas-BEAN Attn: Accountin g,[address] [facility], [place], [address], [place] [facility] 2 11:04:07 Moderate recurrent major depressio n 68984058 Active 2021 SIM Banegas-BEAN Attn: Accountin g,[address] [place], [address], [place] [facility] 3 10:18:21 Body mass index less than 20 310862168 [facility] 2022 [facility]: Sravan hyde,[address] [facility], [place], [place], [address] [place] [address] 2, [place] [facility] 3 10:18:21 Autoimmun e thyroidit is 80163090 Active 2022 [facility]n: Sravan hyde,[address] [facility], [place], [place], [address] [place] [address] 2, [place] [facility] 3 10:18:22 Vitamin D deficienc y 84218790 Active 2022 Caio Garzon [facility] Attn: Sravan hyde,[address] [facility], [place], [place], [address] [place] [address] 2, [place] [facility] 3 10:19:07 History of polyp of colon 410696071 Active 2023 Caio Garzon [facility] Attn: Sravan hyde,[address] [facility], [place], [place], [address] [place] [address] 2, [place] [facility] 4 14:53:30 Osteopeni a 993718416 Active 2024 Caio Garzon [facility] Attn: Sravan hyde,[address] [facility], [place], [place], [address] [place] [address] 2, [place] [facility] 5 12:21:24 Smoker 70968548 Active 2024 Caio Garzon [facility] Attn: Sravan hyde,[address] [place], [place], [address] [place] [address] 2, [place] [facility] 5 12:21:40 Lesion of vulva 373856821 Active 2024 Caio Garzon [facility] Attn: Sravan hyde,[address] [place], [place], [address] [place] [address] 2, [place] [facility] 5 12:21:49 Right upper quadrant pain 164227098 Active 2024 Caio Garzon [facility] Attn: Accountin g,[address] [facility], [place], [address], [facility] 12:56:43 Problem Notes None recorded. Procedures Surgical History Date Name Laterality Status Provider Name and Address Organization Details Recorded Time 09/21/19 25 Date of Last Pap Smear completed Kely Churchill RN [facility] 10/04/2024 10:31:57 03/15/20 24 Date of Last Mammogram completed Kely Churchill RN [facility] 10/04/2024 10:31:48 02/09/20 24 Cerumen Removal completed GABBY Banegas Attn: Accounting, [address] [facility], [place], [address], [facility] 02/09/2024 14:56:31 10/06/19 24 Cerumen Removal completed GABBY Banegas Attn: Accounting, [address] [facility], [place], [address], [facility] 10/06/2023 10:31:15 03/24/19 12 Cholecystectomy completed Kim Corcoran Connie [facility] 06/20/2014 11:21:27 Knee Surgery completed Kim Corcoran Connie [facility] 06/20/2014 11:20:05 Hernia Repair completed Kim Corcoran Connie [facility] 06/20/2014 11:21:10 Imaging Results None recorded. Procedure Notes None recorded. Medical Equipment None Reported. Allergies No known drug allergies Medications Name Sig Start Date Stop Date Status Note LastModified by Organization Details LastModified Time cyclobenz aprine 10 mg tablet TAKE 1 TABLET BY MOUTH THREE TIMES DAILY 10/04 completed Not Available Not Available Not Available amoxicill in 500 mg capsule 10/31 completed Not Available Not Available Not Available methocarb shelli 500 mg tablet TAKE 1 TABLET BY MOUTH EVERY 6 HOURS NEEDED FOR MUSCLE PAIN/SPA SM 11/05 completed Not Available Not Available Not Available Qvar 80 mcg/actua tion Metered Aerosol oral inhaler 2 puffs bid 03/14 completed Not Available Not Available Not Available bupropion HCl SR 150 mg tablet,12 hr sustained -release Take 1 tablet twice a day by oral route. 03/13 completed Not Available Not Available Not Available nicotine 14 mg/24 hr daily transderm al patch APPLY 1 PATCH TOPICALL Y ONCE DAILY 10/05 completed Not Available Not Available Not Available albuterol sulfate 2.5 mg/3 mL (0.083 %) solution for nebulizat ion Inhale 3 mL 3 times a day by nebuliza tion route. 11/20 completed Not Available Not Available Not Available polyethyl chito glycol 3350 17 gram oral powder packet 06/01 completed Not Available Not Available Not Available azithromy krzysztof 250 mg tablet TAKE 2 TABLETS BY MOUTH ON DAY 1, AND THEN TAKE 1 TABLET BY MOUTH ONCE A DAY ON DAY 2 THROUGH DAY 5 11/18 completed Not Available Not Available Not Available pravastat in 40 mg tablet TAKE 1 TABLET BY MOUTH ONCE DAILY FOR CHOLESTE ROL 2024 active Not Available Not Available Not Avai lable ibuprofen 800 mg tablet TAKE 1 TABLET BY MOUTH THREE TIMES DAILY 11/05 completed Not Available Not Available Not Available metronida zole 0.75 % (37.5 mg/5 gram) vaginal gel Insert 1 applicat orful every day by vaginal route at bedtime for 5 days. 07/17 completed Not Available Not Available Not Available prednison e 20 mg tablet TAKE 3 TABLETS BY MOUTH ONCE DAILY FOR 3 DAYS AND THEN TAKE 2 TABLETS BY MOUTH ONCE DAILY FOR 3 DAYS AND THEN TAKE 1 TABLET BY MOUTH ONCE DAILY FOR 3 DAYS 08/07 completed Not Available Not Available Not Available alendrona te 70 mg tablet TAKE 1 TABLET BY MOUTH ONCE A WEEK FOR BONE HEALTH 06/28 completed Not Available Not Available Not Available gabapenti n 400 mg capsule TAKE 1 CAPSULE BY MOUTH THREE TIMES DAILY 11/05 completed Not Available Not Available Not Available Tylenol Arthritis Pain 650 mg tablet,ex tended release Take 2 tablets every 8 hours by oral route. 06/28 completed Not Available Not Available Not Available acyclovir 400 mg tablet Take 1 tablet every 8 hours by oral route. 09/26 completed Not Available Not Available Not Available tramadol 50 mg tablet Take 1 tablet twice a day by oral route. 05/05 completed Not Available Not Available Not Available triamcino lone acetonide 0.1 % topical cream APPLY A THIN LAYER OF CREAM EXTERNAL LY TO AFFECTED AREA TWICE DAILY 06/28 completed Not Available Not Available Not Available ketorolac 30 mg/mL (1 mL) injection solution Inject 1 mL every 6 hours by intramus cular route. 03/26 completed Not Available Not Available Not Available acyclovir 800 mg tablet TAKE 1 TABLET BY MOUTH EVERY 4 HOURS. TAKE A MAX OF 5 TABLETS PER DAY. 11/05 completed Not Available Not Available Not Available Depo-Medr ol 80 mg/mL suspensio n for injection Take 1 mL by injectio n route. 08/30 completed Not Available Not Available Not Available ketorolac 10 mg tablet TAKE 1 TABLET BY MOUTH EVERY 6 HOURS FOR ABDOMINA L PAIN active Not Available Not Available No t Available Macrobid 100 mg capsule Take 1 capsule every 12 hours by oral route for 7 days. 01/16 [facility] Not Available Not Available Not Available Unithroid 112 mcg tablet TAKE 1 TABLET BY MOUTH ONCE DAILY; SKIP 09/20 completed Not Available Not Available Not Available meloxicam 7.5 mg tablet TAKE 1 TABLET BY MOUTH ONCE DAILY 05/13 completed Not Available Not Available Not Available levothyro xine 100 mcg tablet TAKE 1 TABLET BY MOUTH ONCE DAILY SKIPPING FRIDAY AND FRIDAY active Not Available Not Available No t Available amoxicill in 875 mg tablet 01/21 completed Not Available Not Available Not Available citalopra m 20 mg tablet Take 1 tablet every day by oral route, for depressi on. 2024 active Not Available Not Available Not Avai lable Nitrostat 0.4 mg sublingua l tablet PLACE 1 TABLET (0.4 MG) BY SUBLINGU AL ROUTE AT 1ST SIGN OF ATTACK; MAY REPEAT EVERY 5 MINUTES UP TO 3 TABS; IF NO RELIEF SEEK MEDICAL HELP 10/31 completed Not Available Not Available Not Available gabapenti n 800 mg tablet TAKE ONE TABLET BY MOUTH EVERY 8 HOURS FOR 30 DAYS for nerve root pain 2024 active Not Available Not Available Not Avai lable imiquimod 5 % topical cream packet APPLY CREAM EXTERNAL LY TO AFFECTED AREA FIVE TIMES PER WEEK 09/26 completed Not Available Not Available Not Available baclofen 10 mg tablet TAKE 1 TABLET BY MOUTH THREE TIMES DAILY FOR 3 DAYS 10/05 completed Not Available Not Available Not Available doxycycli ne monohydra te 100 mg capsule 03/13 completed Not Available Not Available Not Available levothyro xine 125 mcg tablet TAKE 1 TABLET BY MOUTH ONCE DAILY 10/05 completed Not Available Not Available Not Available Advair Diskus 250 mcg-50 mcg/dose powder for inhalatio n Inhale 1 inhalati on twice a day by inhalati on route. 03/01 completed Not Available Not Available Not Available nicotine 21 mg/24 hr daily transderm al patch Apply 1 patch every day by transder mal route. 03/01 completed Not Available Not Available Not Available hydrochlo rothiazid e 12.5 mg capsule TAKE 1 CAPSULE BY MOUTH ONCE DAILY 08/07 completed Not Available Not Available Not Available diclofena c potassium 50 mg tablet Take 1 tablet twice a day by oral route. 02/09 completed heel pain Not Available Not Available Not Available gabapenti n 300 mg capsule TAKE 1 CAPSULE BY MOUTH THREE TIMES DAILY 08/07 completed Not Available Not Available Not Available diclofena c sodium 75 mg tablet,de layed release 01/09 completed Not Available Not Available Not Available montel[facility] st 10 mg tablet TAKE 1 TABLET BY MOUTH ONCE DAILY FOR COPD 2024 active Not Available Not Available Not Avai lable gabapenti n 100 mg capsule TAKE 1 CAPSULE BY MOUTH TWICE DAILY 06/18 completed Not Available Not Available Not Available ergocalci ferol (vitamin D2) 1,250 mcg (50,000 unit) capsule TAKE 1 CAPSULE BY MOUTH ONCE A WEEK 10/04 completed Not Available Not Available Not Available methylpre dnisolone 4 mg tablets in a dose pack TAKE BY MOUTH DIRECTED ON INSIDE OF PACKAGE 09/20 completed Not Available Not Available Not Available albuterol sulfate HFA 90 mcg/actua tion aerosol inhaler INHALE 2 PUFFS BY MOUTH EVERY 4 TO 6 HOURS NEEDED FOR COPD active Not Available Not Available No t Available losartan 50 mg-hydroc hlorothia zide 12.5 mg tablet Take 1 tablet every day by oral route, for HYPERTEN LESIA. 2024 active Not Available Not Available Not Avai lable ketorolac 60 mg/2 mL intramusc ular solution Inject 1 mL every day by intramus cular route for 1 day. 2024 active Not Available Not Available Not Avai lable dexametha sone sodium phosphate 10 mg/mL injection solution Take 2 mL every day by injectio n route for 1 day. 08/07 completed Not Available Not Available Not Available fluticaso ne propionat e 50 mcg/actua tion nasal spray,cynthia pension USE 1 SPRAY(S) IN EACH NOSTRIL TWICE DAILY FOR CHRONIC SINUSITI S 2024 active Not Available Not Available Not Avai lable loratadin e 10 mg tablet Take 1 tablet twice a day by oral route for 30 days. 03/01 completed Not Available Not Available Not Available naproxen 500 mg tablet Take 1 tablet twice a day by oral route. 06/27 completed Not Available Not Available Not Available nicotine 7 mg/24 hr daily transderm al patch Apply 1 patch every day by transder mal route. 03/01 completed Not Available Not Available Not Available azithromy krzysztof 500 mg tablet 10/31 completed Not Available Not Available Not Available Zetia 10 mg tablet Take 1 tablet every day by oral route, for choleste rol. 2024 active Not Available Not Available Not Avai lable bupropion HCl XL 150 mg 24 hr tablet, extended release Take 1 tablet every day by oral route for 30 days. 01/09 completed Not Available Not Available Not Available capsaicin 0.1 % topical cream Apply 1 applicat ion 3 times a day by topical route. 05/13 completed Not Available Not Available Not Available peg 3350 240 gram-elec trolytes 22.72 gram-6.72 g-5.84 g powdr for soln 03/13 completed Not Available Not Available Not Available Calcium with Vitamin D 600 mg-10 mcg (400 unit) tablet Take 1 tablet twice a day by oral route. 2024 active Not Available Not Available Not Avai lable Calcium 600 + D(3) 600 mg-5 mcg (200 unit) capsule Take 1 capsule every day by oral route. 07/17 completed Not Available Not Available Not Available Suprep Bowel Prep Kit 17.5 gram-3.13 gram-1.6 gram oral solution Take 300 mL by oral route for 1 day. 03/13 completed Not Available Not Available Not Available Aerospan 80 mcg/actua tion HFA aerosol inhaler Inhale 2 puffs twice a day by inhalati on route. 09/03 completed 03/14/16 : #1 w/ 4rfs called into [facility] spoke with Edna. Not Available Not Available Not Available Incruse Ellipta 62.5 mcg/actua tion powder for inhalatio n INHALE 1 PUFF BY MOUTH ONCE DAILY FOR COPD 2024 active Not Available Not Available Not Avai lable Vitals Date Recorded Body height Body mass index (BMI) Body weight Oxygen saturation Heart rate Body temperature Systolic And Diastolic Provider Name and Address Organization Details Last Updated DateTime 5 154.94 cm 19.3 kg/m2 96517.4 2 g 97 % 81 /min 97.4 [degF] 110/72 mm[Hg] Kely Churchill RN [facility] SIF 5 11:42:49 Date Recorded Body height Body temperature Body mass index (BMI) Body weight Respiratory rate Pain severity - 0-10 verbal numeric rating [Score] - Reported Oxygen saturation Heart rate Systolic And Diastolic Provider Name and Address Organization Details Last Updated DateTime 5 154.94 cm 97 [degF] 19.7 kg/m2 72204.6 1 g 18 /min 0 100 % 70 /min 120/74 mm[Hg] Sarah Marie LPN [facility] SI 5 10:06:02 Date Recorded Body height Body mass index (BMI) Body weight Body temperature Oxygen saturation Heart rate Systolic And Diastolic Provider Name and Address Organization Details Last Updated DateTime 5 154.94 cm 19.3 kg/m2 14226.1 2 g 97.6 [degF] 95 % 76 /min 108/68 mm[Hg] Kely Churchill RN [facility] SI 5 10:55:43 Date Recorded Body height Body mass index (BMI) Body weight Body temperature Oxygen saturation Heart rate Systolic And Diastolic Provider Name and Address Organization Details Last Updated DateTime 5 154.94 cm 19.1 kg/m2 49813.2 3 g 98.6 [degF] 96 % 73 /min 118/70 mm[Hg] Katia carmona MA [place] - [facility] 5 12:34:45 Date Recorded Body height Body mass index (BMI) Body weight Body temperature Oxygen saturation Heart rate Systolic And Diastolic Provider Name and Address Organization Details Last Updated DateTime 5 154.94 cm 19.1 kg/m2 26243.8 3 g 97.8 [degF] 97 % 80 /min 108/70 mm[Hg] Katia carmona MA [facility] SI 5 11:57:48 Social History Question Answer Notes LastModified by Organizat ion Details LastModified Time Tobacco Smoking Status Current Every Day Smoker 5-10 a day Ewelina Baez MA [facility], [facility] 10/06/2023 10:02:17 Do You Have An Advance Directive? No Information not available 02/14/2014 Are You Blind Or Do You Have Difficulty Seeing? No Information not available 05/05/2020 What Is Your Level Of Caffeine Consumption? Moderate Information not available 02/14/2014 How Much Tobacco Do You Chew? None Information not available 02/14/2014 In The 14 Days Before Symptom Onset, Have You Had Close Contact With A Laboratory-confir med COVID-19 While That Case Was Ill? No Information not available 05/05/2020 In The 14 Days Before Symptom Onset, Have You Had Close Contact With A Person Who Is Under Investigation For COVID-19 While That Person Was Ill? No Information not available 05/05/2020 Have You Been To An Area Known To Be High Risk For COVID-19? No Information not available 05/05/2020 Are You Deaf Or Do You Have Serious Difficulty Hearing? No Information not available 05/05/2020 What Type Of Diet Are You Following? REGULAR Information not available 02/14/2014 Which Illicit Or Recreational Drugs Have You Used? Cristo [email or web address] Information not available 10/12/2015 Education 9 GED Information no t available 02/14/2014 Are There Any Guns Present In Your Home? No Information not available 02/14/2014 Hard Of Hearing Or Deaf In One Or Both Ears? No Information not available 02/14/2014 Legally Blind In One Or Both Eyes? No Information no t available 02/14/2014 Marital Status Single Informatio n not available 02/14/2014 Do You Have A Medical Power Of Orthopedic Shoe Maker? No [email or web address] Information not available 07/16/2021 What Was The Date Of Your Most Recent Tobacco Screening? 01/03/2025 Information not available 01/03/2025 Performs Monthly Self-breast Exam? Yes Information no t available 02/14/2014 What Is Your Relationship Status? Single Information not available 05/05/2020 Do You Use Your Seat Belt Or Car Seat Routinely? Yes Information not available 05/05/2020 Seat Belts Used Routinely Yes Information not available 02/14/2014 Are You Sexually Active? Yes Information not available 05/05/2020 Smoke Alarm In Home Yes Information not available 02/14/2014 Do You Have Smoke And Carbon Monoxide Detectors In Your Home? Yes Information not available 05/05/2020 At What Age Did You Start Smoking Tobacco? 14 Information not available 02/14/2014 Are You Passively Exposed To Smoke? No [email or web address] Information no t available 11/06/2020 How Much Tobacco Do You Smoke? 0.5 PPD [email or web address] Information not available 10/12/2015 General Stress Level Medium Information not available 02/14/2014 Do You Use Sunscreen Routinely? No Information not available 02/14/2014 Has Tobacco Cessation Counseling Been Provided? No Information not available 01/13/2023 On What Date Was Tobacco Cessation Counseling Provided? 01/03/2025 Information not available 01/03/2025 Sex: Female Functional Status Question Answer Note LastModified by Organizat ion Details LastModified Time Do you use any illicit or recreational drugs? No Information not available 05/05/2020 Do you or have you ever used any other forms of tobacco or nicotine? No Information not available 05/05/2020 What is your level of alcohol consumption? None Information not available 02/14/2014 Do you or have you ever used smokeless tobacco? Never used smokeless tobacco Information not available 01/07/2019 Are you currently employed? Yes [employer] Information not available 11/06/2020 Are you able to care for yourself independently? Yes Information not available 05/05/2020 What is your occupation? [employer] Information not available 07/25/2017 Do you or have you ever used e-cigarettes or vape? Never used electronic cigarettes Information not available 01/07/2019 What is your exercise level? Occasional Information not available 02/14/2014 Mental Status Question Answer Note LastModified by Organization D etails LastModified Time Do you feel stressed (tense, restless, nervous, or anxious, or unable to sleep at night)? [id number] Information not available 05/05/2020 Family History Relationship Description Onset Age of this Age Resolved Age Notes LastModified by Organization Details LastModified Time Mother Diabetes mellitus [email or web address] Not available 12/2015 10:18:59 Mother Hypertensive disorder [email or web address] Not available 12/2015 10:18:59 Father Congestive heart failure [email or web address] Not available 12/2015 10:18:59 Sister Malignant neoplasm of colon [email or web address] Not available 12/2015 10:18:59 Sister Hypertensive disorder [email or web address] Not available 2017 14:06:44 Sister Osteoarthrit is [email or web address] Not available 2017 14:07:14 Sister Asthma yarauz Not available 09/2017 14:09:40 Sister Sj gren's syndrome [email or web address] Not available 2018 17:22:15 Sister Congestive heart failure [email or web address] Not available 2018 17:22:27 Sister Diabetes mellitus [email or web address] Not available 2018 12:12:37 Sister Cerebrovascu lar accident 66 [email or web address] Not available 12:45:47 Daughter Asthma [email or web address] Not available 1 10:37:53 Medical History Condition Response Anxiety Disorder Y Muscle, Joint, or Bone Problems Y High Blood Pressure Y Arthritis Y Thyroid Problems Y Allergies Y COPD Y Depression Y High Cholesterol Y Hepatitis Y Hypertension Y Osteoporosis Y Gynecological History Statement/Question Response If Post Menopausal, Age at Menopause 43 Date of Last Pap Smear 09/20/2024 Current Control Method Menopause Date of Last Mammogram 03/15/2024 LMP Obstetrics History GPAL:G 3 P 0 0 0 3 Type Value Living 3 Total 3 Immunizations Vaccine Type Date Status Note Provider Nam e and Address Organization Details Recorded Time COVID-19, mRNA, LNP-S, PF, 100 mcg/0.5mL dose or 50 mcg/0.25mL dose 1 completed Ewelina Baez [place] null, [place] [facility] 03/07/2021 11:25:37 SARS-COV-2 (COVID-19) vaccine, UNSPECIFIED 2 completed Ewelina Baez [place], [place] [facility] 05/13/2022 10:03:50 zoster recombinant 2 completed Ewelina Baez [place] [facility] 05/13/2022 10:04:12 zoster recombinant 2 completed Ewelina Baez [place] [facility] 05/13/2022 10:04:16 Influenza, split virus, trivalent, preservative 4 completed Not Available [facility] 04/10/2019 02:32:02 Influenza, split virus, quadrivalent, preservative 6 completed Not Available [facility] 04/10/2019 02:32:59 influenza, unspecified formulation 9 completed Not Available [facility] 01/03/2025 11:33:22 Influenza, split virus, quadrivalent, PF 7 completed Not Available [facility] 04/10/2019 02:33:56 Influenza, split virus, quadrivalent, PF 8 completed Not Available [facility] 04/10/2019 02:49:14 pneumococcal polysaccharide PPV23 4 completed Not Available [facility] 02/09/2021 16:49:58 Tdap 4 completed [facility] Available [facility] 02/09/2021 16:49:58 Influenza, split virus, quadrivalent, PF 3 completed Not Available [facility] 02/09/2021 16:49:57 Influenza, split virus, quadrivalent, preservative 9 completed Not Available [facility] 04/10/2019 02:38:15 Influenza, split virus, quadrivalent, preservative 0 completed SAVITA MARRERO Attn: Accounting[address] [facility], [place], [address], [place] [facility] 02/22/2020 10:49:10 COVID-19, mRNA, LNP-S, PF, 100 mcg/0.5mL dose or 50 mcg/0.25mL dose 1 completed Raquel Pabon [place], [place] [facility] 05/30/2020 15:00:01 COVID-19, mRNA, LNP-S, PF, 100 mcg/0.5mL dose or 50 mcg/0.25mL dose 1 completed Bob Harmon [place], [place] [facility] 06/27/2020 16:02:56 Influenza, split virus, quadrivalent, preservative 1 completed Kely Churchill RN [place], [place] [facility] 02/05/2021 11:54:17 Influenza, recombinant, quadrivalent, PF 2 completed GABBY Banegas Attn: Accounting[address] [place], [address], [place] [facility] 02/06/2022 15:18:17 Pneumococcal conjugate PCV 13 2 completed GABBY Banegas Attn: [address] [place], [address], [place] [facility] 02/06/2022 15:18:17 Influenza, high-dose, quadrivalent, PF 3 completed GABBY Banegas Attn: Accounting[address] [place], [address], [facility] - [facility] 01/13/2023 16:39:21 Influenza, split virus, trivalent, preservative 5 completed Not Available [facility] 04/10/2019 02:32:12 Influenza, split virus, trivalent, preservative 4 completed Ewelina Baez [place] [facility] 02/09/2024 15:12:30 Pneumococcal conjugate PCV20, polysaccharide CHX403 conjugate, adjuvant, PF 5 completed Ewelina Baez [place] [facility] 06/28/2024 11:38:10 Tdap 5 completed SAVITA LEE Attn: Accounting[address] , [place], [address], [facility] - [facility] 06/28/2024 16:23:54 Influenza, split virus, trivalent, PF 5 completed Katia Mitchell MA null, [place] - [facility] 12/06/2024 17:25:32 Past Encounters Encounter ID Performer Location Encounter Start Date Encounter Closed Date Diagnosis/Indication Diagnosis SNOMED-CT Code Diagnosis ICD10 Code Diagnosis IMO Codes [id number] [address] [place] [address] 02/14/2014 09:50:44 02/14/2014 13:06:23 Tobacco user [id number] Chronic ob structive pulmonary disease 08914059 Essential hypertension 14495488 Degenerati on of lumbar intervertebral disc 41606396 Osteoarthritis 621940448 Hyperlipidemia 60581532 Hypothyroidism 49167578 Depressive disorder 14057370 [id number] Gui Zelaya MD [facility] [address], [place] [address] 03/15/2014 10:50:47 03/18/2014 17:58:13 Screening for malignant neoplasm of breast 742543178 Heel pain 5656955 [id number] Gui Zelaya MD [facility] [address], [place] [address] 06/20/2014 11:01:57 06/23/2014 11:55:27 Chronic obstructive pulmonary disease 13632099 Essential hypertension 53010702 Hyperlipidemia 75034300 Hypothyroidism 82655548 Depressive disorder 99107988 Heel pain 4715852 Tobacco user [id number] sto p smoking Degenerati on of lumbar intervertebral disc 17302047 Osteoarthritis 585225380 Achilles tendinitis 94241653 wear supportive shoes and try elevate leg prn Chronic sinusitis 62762230 Impaired g lucose tolerance 7364033 [id number] [facility] [address] [place] [address] 4 10/17/2014 16:18:19 10/21/2014 11:22:23 Impaired glucose tolerance 1442186 Depressive disorder 56667443 Tobacco user [id number] sto p smoking Chronic ob structive pulmonary disease 84604299 Essential hypertension 93882751 Degenerati on of lumbar intervertebral disc 55486690 Hyperlipidemia 80400045 Hypothyroidism 36717602 Osteoarthritis 229291560 Heel pain 4643366 Achilles tendinitis 36242253 wear supportive shoes and try elevate leg prn Chronic sinusitis 33608612 [id number] Caio [facility] [address] [place] [address] 4 01/16/2015 10:18:33 01/19/2015 11:58:17 Impaired glucose tolerance 2624977 R73.09 Depressive disorder 3548 9007 F32.9 Tobacco user 299058523 Z 72.0 stop smoking Chronic ob structive pulmonary disease 02236922 J41.8 Essential hypertension 79775063 I10 Degenerati on of lumbar intervertebral disc 82187313 M51.36 Hyperlipidemia 89184914 E78.2 Hypothyroidism 42472192 E03.9 Osteoarthritis 692646600 M15.4 Chronic sinusitis 123523 00 J32.9 [id number] [facility] [address] [place] [address] 4 03/01/2015 09:38:58 03/07/2015 17:39:20 Pneumonia 851606968 J18.9 Acute exac erbation of chronic obstructive pulmonary disease 669810507 J44.1 Chest pain 28432507 R07. 9 [id number] Carlos Gutierrez MD [facility] [place] [address] [place] [address] 04/27/2015 14:47:20 05/02/2015 17:13:44 Chronic hepatitis C 259385706 B18.2 [id number] [facility] [address], [place] [address] 06/28/2015 10:32:29 07/03/2015 12:56:49 Chronic obstructive pulmonary disease 58716682 J41.8 Degenerati on of lumbar intervertebral disc 36576410 M51.36 Depressive disorder 3548 9007 F32.9 Essential hypertension 12681834 I10 Chronic sinusitis 489515 00 J32.9 Hyperlipidemia 78701252 E78.2 Hypothyroidism 89395056 E03.9 [id number] [facility] [address] [place] [address] 09/18/2015 16:26:54 09/20/2015 16:16:45 Chest pain 75550295 R07.9 Chronic ob structive pulmonary disease 79272536 J41.8 [id number] Carlos Gutierrez MD [facility] [address] [place] [address] 10/12/2015 13:35:41 10/17/2015 11:24:48 Hepatitis C antibody detected 767859401 Z86.19 [id number] Gui Zelaya MD [facility] [address] [place] [address] 11/01/2015 10:08:16 11/13/2015 12:19:08 Chronic obstructive pulmonary disease 08943878 J41.8 Degenerati on of lumbar intervertebral disc 31577371 M51.36 Depressive disorder 3548 9007 F32.9 Essential hypertension 71876150 I10 Chronic sinusitis 557502 00 J32.9 Hyperlipidemia 88555896 E78.2 Hypothyroidism 54678731 E03.9 Tobacco user 054132450 Z 72.0 stop smoking [id number] Gui Zelaya MD [facility] [address] [place] [address] 03/01/2016 09:37:14 03/07/2016 12:16:15 Essential hypertension 87628450 I10 Hyperlipidemia 36843495 E78.2 Impaired g lucose tolerance 5207389 R73.09 Hypothyroidism 66084378 E03.9 Osteoarthritis 791388312 M15.4 Chronic sinusitis 862247 00 J32.9 Degenerati on of lumbar intervertebral disc 00753860 M51.36 Chronic ob structive pulmonary disease 87900441 J44.9 Tobacco user 203369189 Z 72.0 stop smoking Chronic hepatitis C 1283 76591 B18.2 She saw GI for Hepatitis C eval had labs ordered an had f/u with G/I who indicated antibody + but no symptoms of Hepatitis C. Depressive disorder 3548 9007 F32.9 Long-term drug therapy 979574127 Z79.948 [id number] Gui Zelaya MD [facility] [address] [place] [address] 05/21/2016 14:00:32 05/24/2016 12:50:25 Gynecologic examination 10531543 Z01.419 calcium rich foods handout vitamin D 2000 iu daily exercise weight loss diet Screening for malignant neoplasm of breast 311211545 Z12.31 Screening for osteoporosis 339450492 Z13.881 [id number] Gui Zelaya MD [facility] [address] [place] [address] 07/12/2016 09:44:43 07/15/2016 16:43:11 Essential hypertension 87121187 I10 Hyperlipidemia 03228797 E78.2 Impaired g lucose tolerance 2302986 R73.09 02/2016 HA1c 5.6 wnl Hypothyroidism 58065934 E03.9 Osteoarthritis 195012487 M15.4 Chronic sinusitis 311133 00 J32.9 continue Benadryl prn Degenerati on of lumbar intervertebral disc 86779187 M51.36 Chronic ob structive pulmonary disease 35033090 J44.9 Tobacco user 785759579 Z 72.0 stop smoking Chronic hepatitis C 1283 31173 B18.2 She saw GI for Hepatitis C eval had labs ordered an had f/u with G/I who indicated antibody + but no symptoms of Hepatitis C. Depressive disorder 3544 9007 F32.9 Long-term drug therapy 102426845 Z79.899 Osteopenia 077260202 M85 .80 [id number] Gui Zelaya MD [facility] [address] [place] [address] 11/20/2016 10:14:59 11/26/2016 13:09:18 Essential hypertension 90793209 I10 Hyperlipidemia 62045680 E78.2 Impaired g lucose tolerance 5476229 R73.09 02/2016 HA1c 5.6 wnl Hypothyroidism 40887449 E03.9 Osteoarthritis 635185772 M15.4 Chronic sinusitis 998865 00 J32.9 continue Benadryl prn Degenerati on of lumbar intervertebral disc 61602307 M51.36 tylenol arthritis prn ultram for severe pain Chronic ob structive pulmonary disease 34260946 J44.9 Tobacco user 335369587 Z 72.0 stop smoking Chronic hepatitis C 1283 86501 B18.2 She saw GI for Hepatitis C eval had labs ordered an had f/u with G/I who indicated antibody + but no symptoms of Hepatitis C. Depressive disorder 3548 9007 F32.9 Osteopenia 342315861 M85 .80 Torticollis 31100764 M43 .6 [id number] Gui Zelaya MD [facility] [address] [place] [address] 03/26/2017 09:45:28 03/26/2017 12:55:06 Essential hypertension 74722674 I10 Hyperlipidemia 96062060 E78.2 Impaired g lucose tolerance 7560643 R73.09 02/2016 HA1c 5.6 wnl Osteoarthritis 019352123 M15.4 Chronic sinusitis 480060 00 J32.9 continue Benadryl prn Degenerati on of lumbar intervertebral disc 71545648 M51.36 tylenol arthritis prn ultram for severe pain Chronic ob structive pulmonary disease 64400310 J44.9 Tobacco user 356017643 Z 72.0 stop smoking Depressive disorder 3548 9007 F32.9 Osteopenia 031430923 M85 .80 Chronic hepatitis C 1283 10640 B18.2 She saw GI for Hepatitis C eval had labs ordered an had f/u with G/I who indicated antibody + but no symptoms of Hepatitis C. Hypothyroidism 62451977 E03.9 [id number] Gui Zelaya MD [facility] [address] [place] [address] 04/18/2017 11:34:21 04/23/2017 14:00:57 Hypercalcemia 51345680 E83.52 [id number] Gui Zelaya MD [facility] [address] [place] [address] 07/25/2017 09:43:13 07/28/2017 16:37:31 Essential hypertension 42111184 I10 will continue Rx stop smoking Life style modificati ons (LSM) Hyperlipidemia 18555475 E78.2 Life style modificati ons (LSM) Avoid all breads, potatoes, cereal, pasta, rice, margarine, refined sugars, milk yogurt, ice cream, juices, soda (including diet), beer, and manmade or manufactur ed desserts. Enjoy fish, chicken (no skin), pork, butter, vegetables , beans, nuts, whole eggs, cheese (low fat or skim), cream in your coffee. Impaired g lucose tolerance 4089235 R73.09 03/2017 HA1c 5.7 Osteoarthritis 393474441 M15.4 Range of motion exercises Tylenol arthritis as needed Chronic sinusitis 206585 00 J32.9 continue Benadryl prn continue nasal spray stop smoking Degenerati on of lumbar intervertebral disc 49709992 M51.36 tylenol arthritis prn ultram for severe pain Chronic ob structive pulmonary disease 63998841 J44.9 stop smoking Tobacco user 277349297 Z 72.0 stop smoking pt pratima try to discontinu e Bupropion by tapering down as advised Depressive disorder 3548 9007 F32.9 Patient stable with Rx will continue for now Osteopenia 550015720 M85 .80 weight bearing and calcium daily Chronic hepatitis C 1283 98157 B18.2 She saw GI for Hepatitis C eval had labs ordered an had f/u with G/I who indicated antibody + but no symptoms of Hepatitis C. Hypothyroidism 51688146 E03.9 will continue with Rx last labs wnl Eruption 385246746 R21 Will try TCA Thrombocytosis 8234693 D 47.3 Elevated platelets with last few CBC Possibly may be due to Chronic sinusitis/ smoking/luna int inflammati on Will recheck--m ay need to send to Hematologi st Herpes labialis 0306936 B00.1 May try Abreva Prn Use Acyclovir as directed for outbreaks [id number] Gui Zelaya MD [facility] [address] [place] [address] 11/28/2017 09:55:12 11/28/2017 18:47:28 Essential hypertension 54323070 I10 will continue Rx stop smoking Life style modificati ons (LSM) Hyperlipidemia 55485871 E78.2 Life style modificati ons (LSM) Avoid all breads, potatoes, cereal, pasta, rice, margarine, refined sugars, milk yogurt, ice cream, juices, soda (including diet), beer, and manmade or manufactur ed desserts. Enjoy fish, chicken (no skin), pork, butter, vegetables , beans, nuts, whole eggs, cheese (low fat or skim), cream in your coffee. Impaired g lucose tolerance 1604459 R73.09 03/2017 HA1c 5.7 Osteoarthritis 626539262 M15.4 Range of motion exercises Tylenol arthritis as needed Chronic sinusitis 875526 00 J32.9 continue Benadryl prn continue nasal spray stop smoking Degenerati on of lumbar intervertebral disc 63009509 M51.36 tylenol arthritis prn ultram for severe pain Chronic ob structive pulmonary disease 08194387 J44.9 stop smoking Tobacco user 387985457 Z 72.0 stop smoking pt pratima try to discontinu e Bupropion by tapering down as advised Depressive disorder 3548 9007 F32.9 Patient stable with Rx will continue for now Osteopenia 491088597 M85 .80 weight bearing and calcium daily continue Calcium +Vitamin D 600mg Chronic hepatitis C 1283 22428 B18.2 She saw GI for Hepatitis C eval had labs ordered an had f/u with G/I who indicated antibody + but no symptoms of Hepatitis C. Hypothyroidism 21373105 E03.9 will continue with Rx last labs wnl Thrombocytosis 5437913 D 47.3 Elevated platelets with last few CBC Possibly may be due to Chronic sinusitis/ smoking/luna int inflammati on Will recheck--m ay need to send to Hematologi st Fatigue 54452327 R53.83 [id number] Kamari Figueroa MD [facility] [address] [place] [address] 01/16/2018 14:39:31 01/20/2018 12:38:52 Gynecologic examination 15680284 Z01.419 Patient had a normal pap 05/21/2016 Patient is a smoker so needs yearly paps Calcium Rich foods handout Vitamin D daily SBE teaching/ handout Screening for malignant neoplasm of breast 129086547 Z12.31 Tobacco user 037198199 Z 72.0 stop smoking pt pratima try to discontinu e Bupropion by tapering down as advised Administra tion of influenza vaccine 15946252 Z23 Screening for malignant neoplasm of colon 014220812 Z12.11 History of polyp of colon 796336980 Z86.010 Family his tory of cancer of colon 492033960 Z80.0 Genital warts 652507589 A63.0 [id number] Gui Zelaya MD [facility] [address], [place] [address] 03/13/2018 11:00:30 03/18/2018 16:50:30 Essential hypertension 25157677 I10 will continue Rx stop smoking Life style modificati ons (LSM) Hyperlipidemia 81745127 E78.2 Life style modificati ons (LSM) Avoid all breads, potatoes, cereal, pasta, rice, margarine, refined sugars, milk yogurt, ice cream, juices, soda (including diet), beer, and manmade or manufactur ed desserts. Enjoy fish, chicken (no skin), pork, butter, vegetables , beans, nuts, whole eggs, cheese (low fat or skim), cream in your coffee. Impaired g lucose tolerance 9313853 R73.09 03/2017 HA1c 5.7 Osteoarthritis 872107398 M15.4 Range of motion exercises Tylenol arthritis as needed Chronic sinusitis 830656 00 J32.9 continue Benadryl prn continue nasal spray stop smoking Degenerati on of lumbar intervertebral disc 21478118 M51.36 tylenol arthritis prn ultram for severe pain Chronic ob structive pulmonary disease 19649818 J44.9 stop smoking Tobacco user 355689705 Z 72.0 still smokes 1/2 PPD stop smoking pt discontinu de Bupropion by tapering down as advised Depressive disorder 3548 9007 F32.9 Patient stable with Rx will continue for now Osteopenia 157118964 M85 .80 weight bearing and calcium daily continue Calcium +Vitamin D 600mg Chronic hepatitis C 1283 29259 B18.2 She saw GI for Hepatitis C eval had labs ordered an had f/u with G/I who indicated antibody + but no symptoms of Hepatitis C.SHe had colonoscop y found to have a polyp instructed to repeat in 2022 Hypothyroidism 07057591 E03.9 will continue with Rx last labs wnl Thrombocytosis 4608305 D 47.3 Elevated platelets with last few CBC Possibly may be due to Chronic sinusitis/ smoking/luna int inflammati on Will recheck--m ay need to send to Hematologi Bilateral lung opacities on plain chest X-ray 373751653 R91.8 Genital warts 214792408 A63.0 [id number] Gui Zelaya MD [facility] [address], [place] [address] 07/17/2018 09:53:58 07/20/2018 08:43:58 Chronic obstructive pulmonary disease 96766453 J44.9 stop smokingfol low up with pulmonolog ist Depressive disorder 3548 9007 F32.9 Patient stable with Rx will continue for now Hypothyroidism 90705232 E03.9 will continue with Rx last labs wnl Essential hypertension 69976078 I10 will continue Rx stop smoking Life style modificati ons (LSM) Hyperlipidemia 80116635 E78.2 Life style modificati ons (LSM) Avoid all breads, potatoes, cereal, pasta, rice, margarine, refined sugars, milk yogurt, ice cream, juices, soda (including diet), beer, and manmade or manufactur ed desserts. Enjoy fish, chicken (no skin), pork, butter, vegetables , beans, nuts, whole eggs, cheese (low fat or skim), cream in your coffee. Impaired g lucose tolerance 0645072 R73.09 03/2017 HA1c 5.7 Osteoarthritis 575061556 M15.4 Range of motion exercises Tylenol arthritis as needed Chronic sinusitis 201520 00 J32.9 continue Benadryl prn continue nasal spray stop smoking Degenerati on of lumbar intervertebral disc 20541403 M51.36 tylenol arthritis prn ultram for severe pain Tobacco user 737952275 Z 72.0 still smokes 1/2 PPD stop smoking pt discontinu de Bupropion by tapering down as advised Osteopenia 295906641 M85 .80 weight bearing and calcium daily continue Calcium +Vitamin D 600mg Thrombocytosis 5312787 D 47.3 Elevated platelets with last few CBC Possibly may be due to Chronic sinusitis/ smoking/luna int inflammati on Will recheck--m ay need to send to Hematologi Pulmonary emphysema [address] of lungs-mohsen re emphysema, ground glass densities, and 4mm node in the lingula, subpleural reticulati onsstresse d need to see Pulmonolog istkeeunice appointmen t for 09/10/2018s top smoking Bilateral lung opacities on plain chest X-ray 749446382 R91.8 tobacco use for 43 yearsopaci ties on previous CXR [id number] Nadeem Vivas MD [facility] [address] [address] 09/10/2018 09:40:21 09/14/2018 15:30:39 Pulmonary emphysema 57355135 J43.9 Secondary to nicotine dependence , Will check PFTs, she will continue on Incruse ellipta on regular basis and albuterol on as needed basis. Nicotine dependence 5629 4008 F17.200 40PYH, counseled to quit for 5 minutes Solitary n odule of lung 205754672 R91.1 4mm in the ligula, will repeat CT chest in 10/2018 Fibrosis of lung 6645029 [address] chest IMPRESSION : 04/2018 1. Severe emphysema. 2. Debris in the basilar and bilateral lower lobe airways could relate to retained or aspirated debris. Clinical follow-up recommende d. 3. 4 mm nodule in the lingula. Given the history of severe emphysema and smoking, 12 month follow-up CT chest without contrast recommende d. 4. Anterior subpleural reticulati ons. With a background of emphysema, concerning for early emphysema related fibrosis. 5. The history states the patient has left lower lobe opacities. However, no recent chest imaging comparison is available. If this can be made available, comparison can be made and addendum provided to this report. 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 Nicotine dependence 5629 4008 F17.200 40PYH, counseled to quit for 5 minutes Solitary n odule of lung 317252878 R91.1 4mm in the ligula, will repeat CT chest in 10/2018( not done) Fibrosis of lung 4354365 [address] J84[address] chest IMPRESSION : 04/2018 1. Severe emphysema. 2. Debris in the basilar and bilateral lower lobe airways could relate to retained or aspirated debris. Clinical follow-up recommende d. 3. 4 mm nodule in the lingula. Given the history of severe emphysema and smoking, 12 month follow-up CT chest without contrast recommende d. 4. Anterior subpleural reticulati ons. With a background of emphysema, concerning for early emphysema related fibrosis. 5. The history states the patient has left lower lobe opacities. However, no recent chest imaging comparison is available. If this can be made available, comparison can be made and addendum provided to this report. Patient was advised to take Mucinex BID Dyspnea on exertion 6084 5006 R06.09 Multifacto rial Posterior rhinorrhea 758 44445 R09.82 Continue saline nasal spray Periodic l imb movement disorder 362279963 G47.61 Not on treatment, her sleep study 01/08 showed no ANGELICA Nonspecifi c immune reaction 03027858 D89.9 Quantifero n TB Golad was positive, I will check sputum for AFB [id number] Gui Zelaya MD [facility] [address] [place] [address] 11/13/2018 11:14:26 11/16/2018 10:21:12 Chronic obstructive pulmonary disease 04301247 J44.9 stop smokingfol low up with pulmonolog ist Depressive disorder 3548 9007 F32.9 Patient stable with Rx will continue for now Essential hypertension 07199151 I10 will continue Rx stop smoking Life style modificati ons (LSM) Hyperlipidemia 37280318 E78.2 Life style modificati ons (LSM) Avoid all breads, potatoes, cereal, pasta, rice, margarine, refined sugars, milk yogurt, ice cream, juices, soda (including diet), beer, and manmade or manufactur ed desserts. Enjoy fish, chicken (no skin), pork, butter, vegetables , beans, nuts, whole eggs, cheese (low fat or skim), cream in your coffee. Hypothyroidism 94346652 E03.9 will continue with Rx last labs wnl Impaired g lucose tolerance 4879723 R73.09 03/2017 HA1c 5.7 Osteoarthritis 134801881 M15.4 Range of motion exercises Tylenol arthritis as needed Chronic sinusitis 774059 00 J32.9 continue Benadryl prn continue nasal spray stop smoking Degenerati on of lumbar intervertebral disc 52367180 M51.36 tylenol arthritis prn ultram for severe pain Tobacco user 664985759 Z 72.0 still smokes 1/2 PPD stop smoking pt discontinu ed Bupropion by tapering down as advised Osteopenia 850205540 M85 .80 weight bearing and calcium daily continue Calcium +Vitamin D 600mg Thrombocytosis 4518391 D 47.3 Elevated platelets with last few CBC Possibly may be due to Chronic sinusitis/ smoking/luna int inflammati on Pulmonary emphysema [address] of lungs-mohsen re emphysema, ground glass densities, and 4mm node in the lingula, subpleural reticulati onsstresse d need to see Pulmonolog istkeep appointmen t for 09/10/2018s top smoking Bilateral lung opacities on plain chest X-ray 546469799 R91.8 tobacco use for 43 yearsopaci ties on previous CXR CXR normalstop smoking Normal bod y mass index 95797503 Z68.1 BMI 19.1 [id number] Nadeem Vivas MD [facility] [address] [place] [address] 12/24/2018 11:47:06 12/24/2018 16:16:10 Pulmonary emphysema 33223110 J43.9 Secondary to nicotine dependence , Will check PFTs( not available) , she will continue on Incruse ellipta on regular basis and albuterol on as needed basis. Nicotine dependence 5629 4008 F17.200 40PYH, counseled to quit for 5 minutes, will add Wellbutrin Solitary n odule of lung 632914957 R91.1 4mm in the ligula, will repeat CT chest in 10/2018IMPR ESSION: ===== 11/2018 1. There are diffuse groundglas s opacificat ions are present within both the right and left lung increased as compared to prior study. Coarsening of the interstiti um is present greatest in the right upper lobe. These findings areincreas ed as compared back to prior study may relate to underlying infectious process. Sputum culture may be of use.2. Similar-ap pearing pulmonary nodule in the lingula. Stable nodule right lung apex.3. Follow-up marina rai is recommende d in April 2019.. 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 Severe emphysema. 2. Debris in the basilar and bilateral lower lobe airways could relate to retained or aspirated debris. Clinical follow-up recommende d. 3. 4 mm nodule in the lingula. Given the history of severe emphysema and smoking, 12 month follow-up CT chest without contrast recommende d. 4. Anterior subpleural reticulati ons. With a background of emphysema, concerning for early emphysema related fibrosis. 5. The history states the patient has left lower lobe opacities. However, no recent chest imaging comparison is available. If this can be made available, comparison can be made and addendum provided to this report. 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 [id number] Kamari Figueroa MD [facility] [address] [place] [address] 01/07/2019 09:43:51 01/08/2019 08:58:50 Gynecologic examination 97875421 Z01.419 Patient had a normal pap 01/18/2018 normal Patient is a smoker so needs yearly paps Calcium Rich foods handout Vitamin D daily SBE teaching/ handout Genital warts 656248578 A63.0 refuses topical condoms-no sex in over a year Screening for malignant neoplasm of breast 198411048 Z12.31 Tobacco user 837635231 Z 72.0 stop smoking pt pratima try to discontinu e Bupropion by tapering down as advised Administra tion of influenza vaccine 05897608 Z23 History of polyp of colon 060575596 Z86.010 last colonoscop y 03/05/2018 had colon polyps removed needs repeat colonoscop y in 5 years (02/2023) Family his tory of cancer of colon 274748519 Z80.0 + sister with colon cancer Osteopenia with high fracture risk 0603268530 21802 M85.80 Senile hyperkeratosis 39 6543041 L57.0 will monitor-pt sees no changes [id number] Gui Zelaya MD [facility] [address], [place] [address] 03/19/2019 09:39:04 03/19/2019 11:45:50 Hyperlipidemia 26831753 E78.2 Life style modificati ons (LSM) Avoid all breads, potatoes, cereal, pasta, rice, margarine, refined sugars, milk yogurt, ice cream, juices, soda (including diet), beer, and manmade or manufactur ed desserts. Enjoy fish, chicken (no skin), pork, butter, vegetables , beans, nuts, whole eggs, cheese (low fat or skim), cream in your coffee. Hypothyroidism 09493150 E03.9 will continue with Rx last labs wnl Essential hypertension 98580188 I10 will continue Rx stop smoking Life style modificati ons (LSM) Chronic ob structive pulmonary disease 87590625 J44.9 stop smokingfol low up with pulmonolog ist Depressive disorder 3548 9007 F32.9 Patient stable with Rx will continue for nowPulmono logist has restarted wellbutrin for smoking cessation Impaired g lucose tolerance 6860309 R73.09 10/2018 HA1c 5.4 Osteoarthritis 109906153 M15.4 Range of motion exercises Tylenol arthritis as needed Chronic sinusitis 593756 00 J32.9 continue Benadryl prn continue nasal spray stop smoking Degenerati on of lumbar intervertebral disc 18886804 M51.36 tylenol arthritis prn ultram for severe pain prescripti on drug monitoring system checked 03/18/2019 Tobacco user 396884630 Z 72.0 still smokes 1/2 PPD stop smoking pt discontinu ed Bupropion by tapering down as advised Thrombocytosis 1395809 D 47.3 Elevated platelets with last few CBC Possibly may be due to Chronic sinusitis/ smoking/luna int inflammati on Pulmonary emphysema [address] of lungs-mohsen re emphysema, ground glass densities, and 4mm node in the lingula, subpleural reticulati onsstresse d need to see Pulmonolog istkeep appointmen t for 09/10/2018s top smoking Bilateral lung opacities on plain chest X-ray 740167974 R91.8 tobacco use for 43 yearsopaci ties on previous CXR CXR normalstop smoking Normal bod y mass index 13265417 Z68.1 BMI 19.1 Osteopenia with high fracture risk 1869044471 72870 M85.80 [id number] Nadeem Vivas MD [facility] [address] [address] 05/10/2019 10:57:00 05/11/2019 08:16:23 Pulmonary emphysema 66601440 J43.9 Secondary to nicotine dependence , Will check PFTs( not available) , she will continue on Incruse ellipta on regular basis and albuterol on as needed basis. Nicotine dependence 5629 4008 F17.200 40PYH, counseled to quit for 5 minutes, will add Wellbutrin Solitary n odule of lung 118826309 R91.1 4mm in the ligula, will repeat CT chest in 10/2018IMPR ESSION: ===== 11/2018 1. There are diffuse groundglas s opacificat ions are present within both the right and left lung increased as compared to prior study. Coarsening of the interstiti um is present greatest in the right upper lobe. These findings areincreas ed as compared back to prior study may relate to underlying infectious process. Sputum culture may be of use.2. Similar-ap pearing pulmonary nodule in the lingula. Stable nodule right lung apex.3. Follow-up examinatio n is recommende d in April 2019. 04/23/2019I MPRESSION: 1. 3 mm nodule right upper lobe is stable compared with 04/24/2018. 4 mm nodule in the lingula is stable compared with 04/24/2018. No new or progressiv e nodules identified . Given the stability for one year, no specific follow-up necessary. 2. Moderate emphysema with early fibrosis. 3. Mild groundglas s opacities in the lower lobes are stable. Probably postinflam matory, but indetermin ate. As a precaution , annual follow-up CT chest without contrast recommende d for this.will repeat CT 03/2020 Fibrosis of lung 9451962 [address] J84.[address] chest IMPRESSION : 04/2018 1. Severe emphysema. 2. Debris in the basilar and bilateral lower lobe airways could relate to retained or aspirated debris. Clinical follow-up recommende d. 3. 4 mm nodule in the lingula. Given the history of severe emphysema and smoking, 12 month follow-up CT chest without contrast recommende d. 4. Anterior subpleural reticulati ons. With a background of emphysema, concerning for early emphysema related fibrosis. 5. The history states the patient has left lower lobe opacities. However, no recent chest imaging comparison is available. If this can be made available, comparison can be made and addendum provided to this report. 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 Enjoy fish, chicken (no skin), pork, butter, vegetables , beans, nuts, whole eggs, cheese (low fat or skim), cream in your coffee. Hypothyroidism 61567362 E03.9 will continue with Rx last labs wnl Chronic ob structive pulmonary disease 16031282 J44.9 stop smokingfol low up with pulmonolog ist Depressive disorder 3548 9007 F32.9 Patient stable with Rx will continue for nowPulmono logist has restarted wellbutrin for smoking cessation Impaired g lucose tolerance 3738510 R73.09 10/2018 HA1c 5.4 Osteoarthritis 412684753 M15.4 Range of motion exercises Tylenol arthritis as needed Chronic sinusitis 010431 00 J32.9 continue Benadryl prn continue nasal spray stop smoking Degenerati on of lumbar intervertebral disc 79704951 M51.36 tylenol arthritis prn ultram for severe pain prescripti on drug monitoring system checked 03/18/2019 Tobacco user 229130336 Z 72.0 still smokes 1/2 PPD stop smoking pt discontinu ed Bupropion by tapering down as advised Thrombocytosis 0926235 D 47.3 Elevated platelets with last few CBC Possibly may be due to Chronic sinusitis/ smoking/luna int inflammati on Pulmonary emphysema [address] of lungs-mohsen re emphysema, ground glass densities, and 4mm node in the lingula, subpleural reticulati onsstresse d need to see Pulmonolog istkeep appointmen t for 09/10/2018s top smoking Bilateral lung opacities on plain chest X-ray 187204723 R91.8 tobacco use for 43 yearsopaci ties on previous CXR CXR normalstop smoking Osteopenia with high fracture risk 9067246677 95440 M85.80 [id number] Gui Zelaya MD [facility] [address] [place] [address] 09/27/2019 11:51:22 09/28/2019 07:24:26 Chronic obstructive pulmonary disease 34430230 J44.9 stop smokingfol low up with pulmonolog ist Essential hypertension 02986659 I10 will continue Rx stop smoking Life style modificati ons (LSM) Hyperlipidemia 28500799 E78.2 Life style modificati ons (LSM) Avoid all breads, potatoes, cereal, pasta, rice, margarine, refined sugars, milk yogurt, ice cream, juices, soda (including diet), beer, and manmade or manufactur ed desserts. Enjoy fish, chicken (no skin), pork, butter, vegetables , beans, nuts, whole eggs, cheese (low fat or skim), cream in your coffee. Hypothyroidism 02269416 E03.9 will continue with Rx last labs wnl Depressive disorder 3548 9007 F32.9 Patient stable with Rx will continue for nowPulmono logist has restarted wellbutrin for smoking cessation Impaired g lucose tolerance 6667971 R73.09 10/2018 HA1c 5.4 Osteoarthritis 610841986 M15.4 Range of motion exercises Tylenol arthritis as needed Chronic sinusitis 676799 00 J32.9 continue Benadryl prn continue nasal spray stop smoking Degenerati on of lumbar intervertebral disc 36013106 M51.36 tylenol arthritis prn ultram for severe pain prescripti on drug monitoring system checked 09/27/2019 -mail rx to patient Tobacco user 438262429 Z 72.0 still smokes 1/2 PPD stop smoking pt discontinu ed Bupropion by tapering down as advised Thrombocytosis 6966676 D 47.3 Elevated platelets with last few CBC Possibly may be due to Chronic sinusitis/ smoking/luna int inflammati on Pulmonary emphysema [address] of lungs-mohsen re emphysema, ground glass densities, and 4mm node in the lingula, subpleural reticulati onsstresse d need to see Pulmonolog istkeep appointmen t for 10/18/2019s top smoking Osteopenia with high fracture risk 6920255870 25253 M85.80 Bilateral lung opacities on plain chest X-ray 049655658 R91.8 tobacco use for 43 yearsopaci ties on previous CXR CXR normalstop smoking [id number] Nadeem Vivas MD [facility] [address] [place] [address] 10/18/2019 10:58:52 10/20/2019 15:17:23 Pulmonary emphysema 39493437 J43.9 Secondary to nicotine dependence , Will check PFTs( not available) , she will continue on Incruse ellipta on regular basis and albuterol on as needed basis. Chronic cough 26041155 R 05 Multifacto rial Posterior rhinorrhea 758 01532 R09.82 Continue saline nasal spray Fibrosis of lung 2051660 [address] chest IMPRESSION : 04/2018 1. Severe emphysema. 2. Debris in the basilar and bilateral lower lobe airways could relate to retained or aspirated debris. Clinical follow-up recommende d. 3. 4 mm nodule in the lingula. Given the history of severe emphysema and smoking, 12 month follow-up CT chest without contrast recommende d. 4. Anterior subpleural reticulati ons. With a background of emphysema, concerning for early emphysema related fibrosis. 5. The history states the patient has left lower lobe opacities. However, no recent chest imaging comparison is available. If this can be made available, comparison can be made and addendum provided to this report. 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 There are diffuse groundglas s opacificat ions are present within both the right and left lung increased as compared to prior study. Coarsening of the interstiti um is present greatest in the right upper lobe. These findings areincreas ed as compared back to prior study may relate to underlying infectious process. Sputum culture may be of use.2. Similar-ap pearing pulmonary nodule in the lingula. Stable nodule right lung apex.3. Follow-up examinalyla rai is recommende d in April 2019. 04/23/2019I MPRESSION: 1. 3 mm nodule right upper lobe is stable compared with 04/24/2018. 4 mm nodule in the lingula is stable compared with 04/24/2018. No new or progressiv e nodules identified . Given the stability for one year, no specific follow-up necessary. 2. Moderate emphysema with early fibrosis. 3. Mild groundglas s opacities in the lower lobes are stable. Probably postinflam matory, but indetermin ate. 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 108788794 G47.61 Not on treatment, her sleep study 01/08 showed no ANGELICA [id number] Gui Zelaya MD [facility] [address] [place] [address] 01/10/2020 10:07:55 01/11/2020 08:24:28 Essential hypertension 53137441 I10 will continue Rx stop smoking Life style modificati ons (LSM) Chronic ob structive pulmonary disease 40939305 J44.9 stop smokingfol low up with pulmonolog ist Hyperlipidemia 17778681 E78.2 Life style modificati ons (LSM) Avoid all breads, potatoes, cereal, pasta, rice, margarine, refined sugars, milk yogurt, ice cream, juices, soda (including diet), beer, and manmade or manufactur ed desserts. Enjoy fish, chicken (no skin), pork, butter, vegetables , beans, nuts, whole eggs, cheese (low fat or skim), cream in your coffee. Hypothyroidism 94591503 E03.9 will continue with Rx last labs wnl Depressive disorder 3548 9007 F32.9 Patient stable with Rx will continue for nowPulmono logist has restarted wellbutrin for smoking cessation Impaired g lucose tolerance 5968357 R73.09 10/2018 HA1c 5.4 Osteoarthritis 099123773 M15.4 Range of motion exercises Tylenol arthritis as needed Chronic sinusitis 619477 00 J32.9 continue Benadryl prn continue nasal spray stop smoking Degenerati on of lumbar intervertebral disc 96602459 M51.36 Patient wants ibuprophen 800mg tid ultram for severe pain-has at home Tobacco user 859933882 Z 72.0 still smokes 1/2 PPD stop smoking pt discontinu ed Bupropion by tapering down as advised Thrombocytosis 7570504 D 47.3 Elevated platelets with last few CBC Possibly may be due to Chronic sinusitis/ smoking/luna int inflammati on Pulmonary emphysema [address] of lungs-mohsen re emphysema, ground glass densities, and 4mm node in the lingula, subpleural reticulati onsstresse d need to see Pulmonolog istkeep appointmen t for 10/18/2019s top smoking Osteopenia with high fracture risk 4671665980 06277 M85.80 Bilateral lung opacities on plain chest X-ray 401291345 R91.8 tobacco use for 43 yearsopaci ties on previous [id number] CXR copdstop smoking [id number] Nadeem Vivas MD [facility] [address] [place] [address] 01/17/2020 10:18:37 01/17/2020 16:58:59 Pulmonary emphysema 32983470 J43.9 Secondary to nicotine dependence , she will continue on Incruse ellipta on regular basis and albuterol on as needed basis. Chronic cough 63482139 R 05 Multifacto rial Posterior rhinorrhea 758 67771 R09.82 Continue saline nasal spray Fibrosis of lung 2395608 [address] chest IMPRESSION : 04/2018 1. Severe emphysema. 2. Debris in the basilar and bilateral lower lobe airways could relate to retained or aspirated debris. Clinical follow-up recommende d. 3. 4 mm nodule in the lingula. Given the history of severe emphysema and smoking, 12 month follow-up CT chest without contrast recommende d. 4. Anterior subpleural reticulati ons. With a background of emphysema, concerning for early emphysema related fibrosis. 5. The history states the patient has left lower lobe opacities. However, no recent chest imaging comparison is available. If this can be made available, comparison can be made and addendum provided to this report.Aura ient was advised to take Mucinex BID Nicotine dependence 5629 4008 F17.200 40PYH, counseled to quit for 5 minutes, will add Wellbutrin Pulmonary Mycobacterium avium complex infection 859379649 A31.0 At this point we will not start treatment Nonspecifi c tuberculin test reaction 434026409 R76.11 secondary to SOLITARIO Solitary n odule of lung 360309099 R91.1 4mm in the ligula, will repeat CT chest in 10/2018IMPR ESSION: ===== 11/2018 1. There are diffuse groundglas s opacificat ions are present within both the right and left lung increased as compared to prior study. Coarsening of the interstiti um is present greatest in the right upper lobe. These findings areincreas ed as compared back to prior study may relate to underlying infectious process. Sputum culture may be of use.2. Similar-ap pearing pulmonary nodule in the lingula. Stable nodule right lung apex.3. Follow-up marina rai is recommende d in April 2019. 04/23/2019I MPRESSION: 1. 3 mm nodule right upper lobe is stable compared with 04/24/2018. 4 mm nodule in the lingula is stable compared with 04/24/2018. No new or progressiv e nodules identified . Given the stability for one year, no specific follow-up necessary. 2. Moderate emphysema with early fibrosis. 3. Mild groundglas s opacities in the lower lobes are stable. Probably postinflam matory, but indetermin ate. 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 264848981 G47.61 Not on treatment, her sleep study 01/08 showed no ANGELICA Restrictiv e lung disease 99558982 J98.4 FEV1 84%, FVC 77%, FEV!/FVC 76%, BD+, TLC 71%, DLCO 44% ( 2019) secondary to pulmonary fibrosisSh e will receive flu vaccine by the end of the month [id number] SAVITA MARRERO [facility] [address] [place] [address] 02/22/2020 10:01:17 02/23/2020 06:52:30 Gynecologic examination 18244001 Z01.419 59yo postmenopa usamayela Gallegos presents for annual WWE.-clini shan breast & pelvic examinatio ns completed today, vulvar lesion noted -cervical cancer screening: last Pap 01/07/2019 , negative. Repeated today. -referral for screening mammogram issued for routine breast cancer screening -Educated osteoporos is prevention including calcium rich diet, weight bearing exercise. Will start supplement . -RTC in 1yr Screening for malignant neoplasm of breast 600565229 Z12.31 Last mammogram 01/29/2019, BI-RADS 2. Schedule annual screening. Osteopenia 593735561 M85 .80 Last DEXA 01/15/2019 with osteopenia . On alendronat e weekly. Cont Calcium/Vi t D supplement . Smoker 43404426 F17.200 1/2 ppd. Complete cessation advised. Follows with pulm Administra tion of influenza vaccine 05179651 Z23 Lesion of vulva 47958445 6 N90.89 2mm hyperkerat otic white lesion on L labia minora near clitoris. Asymptomat ic. Noted for years. Pt was told genital wart. Advised biopsy but pt declined at this time. Will monitor. [id number] Gui Zelaya MD [facility] [address] [place] [address] 05/05/2020 10:30:07 05/08/2020 12:25:45 Essential hypertension 30977010 I10 will continue Rx stop smoking Life style modificati ons (LSM) Chronic ob structive pulmonary disease 68847948 J44.9 stop smokingfol low up with pulmonolog ist Hyperlipidemia 29284728 E78.2 Life style modificati ons (LSM) Avoid all breads, potatoes, cereal, pasta, rice, margarine, refined sugars, milk yogurt, ice cream, juices, soda (including diet), beer, and manmade or manufactur ed desserts. Enjoy fish, chicken (no skin), pork, butter, vegetables , beans, nuts, whole eggs, cheese (low fat or skim), cream in your coffee. Hypothyroidism 45073977 E03.9 will continue with Rx last labs wnl Depressive disorder 3548 9007 F32.9 Patient stable with Rx will continue for nowPulmono logist has restarted wellbutrin for smoking cessation Impaired g lucose tolerance 0430695 R73.09 10/2018 HA1c 5.4 Osteoarthritis 326929998 M15.4 Range of motion exercises Tylenol arthritis as needed Chronic sinusitis 502988 00 J32.9 continue Benadryl prn continue nasal spray stop smoking Degenerati on of lumbar intervertebral disc 79440139 M51.36 Patient wants ibuprophen 800mg tid ultram for severe pain-has at home Tobacco user 723741221 Z 72.0 still smokes 1/2 PPD stop smoking pt discontinu ed Bupropion by tapering down as advised Thrombocytosis 0298476 D 47.3 Elevated platelets with last few CBC Possibly may be due to Chronic sinusitis/ smoking/luna int inflammati on Pulmonary emphysema [address] of lungs-mohsen re emphysema, ground glass densities, and 4mm node in the lingula, subpleural reticulati onsstresse d to f/u with Pulmonolog iststop smoking Osteopenia with high fracture risk 7659898848 50948 M85.80 Bilateral lung opacities on plain chest X-ray 205535340 R91.8 tobacco use for 43 yearsopaci ties on previous [id number] CXR copdstop smokingpat ient seeing Dr Vivas pulmonolog ist [id number] Nadeem Vivas MD [facility] [address] [address] 05/18/2020 10:05:41 05/18/2020 16:34:45 Fibrosis of lung 12631684 J84.[address] chest IMPRESSION : 04/2018 1. Severe emphysema. 2. Debris in the basilar and bilateral lower lobe airways could relate to retained or aspirated debris. Clinical follow-up recommende d. 3. 4 mm nodule in the lingula. Given the history of severe emphysema and smoking, 12 month follow-up CT chest without contrast recommende d. 4. Anterior subpleural reticulati ons. With a background of emphysema, concerning for early emphysema related fibrosis. 5. The history states the patient has left lower lobe opacities. However, no recent chest imaging comparison is available. If this can be made available, comparison can be made and addendum provided to this report.Aura holley was advised to take Mucinex BID Pulmonary emphysema 8743 3001 J43.9 Secondary to nicotine dependence , she will continue on Incruse ellipta on regular basis and albuterol on as needed basis. Multiple n odules of lung 579299297 R91.8 4mm in the ligula, will repeat CT chest in 10/2018 IMPRESSION : ===== 11/2018 1. There are diffuse groundglas s opacificat ions are present within both the right and left lung increased as compared to prior study. Coarsening of the interstiti um is present greatest in the right upper lobe. These findings are increased as compared back to prior study may relate to underlying infectious process. Sputum culture may be of use. 2. Similar-ap pearing pulmonary nodule in the lingula. Stable nodule right lung apex. 3. Follow-up marina rai is recommende d in April 2019. 04/23/2019 IMPRESSION : 1. 3 mm nodule right upper lobe is stable compared with 04/24/2018. 4 mm nodule in the lingula is stable compared with 04/24/2018. No new or progressiv e nodules identified . Given the stability for one year, no specific follow-up necessary. 2. Moderate emphysema with early fibrosis. 3. Mild groundglas s opacities in the lower lobes are stable. Probably postinflam matory, but indetermin ate. As a precaution , annual follow-up CT chest without contrast recommende d for this. 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 At this point we will not start treatment Nonspecifi c tuberculin test reaction 429622867 R76.11 secondary to SOLITARIO Chronic cough 80376756 R 05 Multifacto rial [id number] MD Zhen Vuong 14 IM [address] [facility] [address] [place] [address] 05/30/2020 11:11:39 06/01/2020 16:52:07 Administration of SARS-CoV-2 antigen vaccine 284188739 Z23 [id number] Gui Zelaya MD [facility] [address], [place] [address] 06/05/2020 10:13:56 06/06/2020 17:54:46 Essential hypertension 06549506 I10 will continue Rx stop smoking Life style modificati ons (LSM) Hyperlipidemia 06823374 E78.2 Life style modificati ons (LSM) Avoid all breads, potatoes, cereal, pasta, rice, margarine, refined sugars, milk yogurt, ice cream, juices, soda (including diet), beer, and manmade or manufactur ed desserts. Enjoy fish, chicken (no skin), pork, butter, vegetables , beans, nuts, whole eggs, cheese (low fat or skim), cream in your coffee. [id number] MD Zhen Vuong 14 IM [address] [facility] [address] [place] [address] 06/27/2020 14:59:30 06/28/2020 11:03:49 Administration of SARS-CoV-2 antigen vaccine 816714305 Z23 [id number] Gui Zelaya MD [facility] [address], [place] [address] 08/02/2020 10:24:05 08/04/2020 15:20:03 Essential hypertension 31462397 I10 will continue Rx stop smoking Life style modificati ons (LSM) Chronic ob structive pulmonary disease 00333100 J44.9 stop smokingfol low up with pulmonolog ist Hyperlipidemia 86297772 E78.2 Life style modificati ons (LSM) Avoid all breads, potatoes, cereal, pasta, rice, margarine, refined sugars, milk yogurt, ice cream, juices, soda (including diet), beer, and manmade or manufactur ed desserts. Enjoy fish, chicken (no skin), pork, butter, vegetables , beans, nuts, whole eggs, cheese (low fat or skim), cream in your coffee. Hypothyroidism 68876397 E03.9 will continue with Rx last labs wnl Depressive disorder 3548 9007 F32.9 Patient stable with Rx will continue for nowPulmono logist has restarted wellbutrin for smoking cessation Impaired g lucose tolerance 1849363 R73.09 10/2018 HA1c 5.4 Osteoarthritis 401522833 M15.4 Range of motion exercises Tylenol arthritis as needed Chronic sinusitis 125628 00 J32.9 continue Benadryl prn continue nasal spray stop smoking Degenerati on of lumbar intervertebral disc 20900243 M51.36 Patient wants ibuprophen 800mg tid ultram for severe pain-has at home Tobacco user 942930773 Z 72.0 still smokes 1/2 PPD stop smoking pt discontinu ed Bupropion by tapering down as advised Thrombocytosis 7630708 D 47.3 Elevated platelets with last few CBC Possibly may be due to Chronic sinusitis/ smoking/luna int inflammati on Pulmonary emphysema [address] of lungs-mohsen re emphysema, ground glass densities, and 4mm node in the lingula, subpleural reticulati onsstresse d to f/u with Pulmonolog iststop smoking Osteopenia with high fracture risk 9743521032 38018 M85.80 Bilateral lung opacities on plain chest X-ray 607910627 R91.8 tobacco use for 43 yearsopaci ties on previous [id number] CXR copdstop smokingpat ient seeing Dr Vivas pulmonolog ist [id number] Nadeem Vivas MD [facility] [address] [place] [address] 09/18/2020 10:12:13 09/18/2020 16:43:59 Dyspnea on exertion 67876572 R06.09 Multifacto rial, I will repeat PFTs Fibrosis of lung 9438691 [address] chest IMPRESSION : 04/2018 1. Severe emphysema. 2. Debris in the basilar and bilateral lower lobe airways could relate to retained or aspirated debris. Clinical follow-up recommende d. 3. 4 mm nodule in the lingula. Given the history of severe emphysema and smoking, 12 month follow-up CT chest without contrast recommende d. 4. Anterior subpleural reticulati ons. With a background of emphysema, concerning for early emphysema related fibrosis.5 . The history states the patient has left lower lobe opacities. However, no recent chest imaging comparison is available. If this can be made available, comparison can be made and addendum provided to this report.Aura ient was advised to take Mucinex BID Multiple n odules of lung 580617221 R91.8 4mm in the ligula, will repeat CT chest in 10/2018 IMPRESSION : ===== 11/2018 1. There are diffuse groundglas s opacificat ions are present within both the right and left lung increased as compared to prior study. Coarsening of the interstiti um is present greatest in the right upper lobe. These findings are increased as compared back to prior study may relate to underlying infectious process. Sputum culture may be of use.2. Similar-ap pearing pulmonary nodule in the lingula. Stable nodule right lung apex.3. Follow-up examinatio n is recommende d in April 2019. 04/23/2019 IMPRESSION :1. 3 mm nodule right upper lobe is stable compared with 04/24/2018. 4 mm nodulein the lingula is stable compared with 04/24/2018. No new or progressiv e nodules identified . Given the stability for one year, no specific follow-up necessary. 2. Moderate emphysema with early fibrosis.3 . Mild groundglas s opacities in the lower lobes are stable. Probablypo stinflamma tory, but indetermin ate. As a precaution , annual follow-up CTchest without contrast recommende d for this. CT 06/2020IMPR ESSION: ===== 1. The pulmonary nodule in the right upper lobe on image #43 is stable ascompared back to April 2018. The left lingular nodule on image #160 [email or web address] pared the prior study. This is greater than 2 years of stability. 2. Scattered groundglas s opacificat ions are present within the right and leftlung slightly increased in the right lower lung as compared back to 2019.3. Significan t emphysemat ous changes are present within the lungs.4. Follow-up examinatio n of the chest is recommende d in one year. Atelectasi sis now present within the lingula and left lower lung slightly increased ascompared to 2 prior examinatio ns.5. Recommend considerat ion for lung screening CT. I will repeat CT chest in 06/2021 Nicotine dependence 5629 4008 F17.200 40PYH, counseled to quit for 5 minutes, she has quit Wellbutrin Posterior rhinorrhea 758 15011 R09.82 Continue saline nasal spray Chronic cough 61294300 R 05 Multifacto rial Pulmonary Mycobacterium avium complex infection 512224926 A31.0 At this point we will not start treatment Nonspecifi c tuberculin test reaction 385339891 R76.11 secondary to SOLITARIO Restrictiv e lung disease 96103930 J98.4 FEV1 84%, FVC 77%, FEV!/FVC 76%, BD+, TLC 71%, DLCO 44% ( 2019) secondary to pulmonary fibrosisSh e will receive flu vaccine by the end of the month. She's on Incruse ellipta, on regular basis and Ventolin HFA on as needed basis [id number] Gui Zelaya MD [facility] [address] [place] [address] 11/06/2020 10:33:52 11/07/2020 09:32:56 Essential hypertension 42714936 I10 will continue Rx stop smoking Life style modificati ons (LSM) Chronic ob structive pulmonary disease 99872945 J44.9 stop smokingfol low up with pulmonolog ist Hyperlipidemia 61749697 E78.2 Life style modificati ons (LSM) Avoid all breads, potatoes, cereal, pasta, rice, margarine, refined sugars, milk yogurt, ice cream, juices, soda (including diet), beer, and manmade or manufactur ed desserts. Enjoy fish, chicken (no skin), pork, butter, vegetables , beans, nuts, whole eggs, cheese (low fat or skim), cream in your coffee. Hypothyroidism 48912027 E03.9 will continue with Rx last labs wnl Depressive disorder 3548 9007 F32.9 Patient stable with Rx will continue for nowPulmono logist has restarted wellbutrin for smoking cessation Impaired g lucose tolerance 3919737 R73.09 10/2018 HA1c 5.4 Osteoarthritis 871070781 M15.4 Range of motion exercises Tylenol arthritis as needed Chronic sinusitis 465529 00 J32.9 continue Benadryl prn continue nasal spray stop smoking Degenerati on of lumbar intervertebral disc 59626060 M51.36 Patient wants ibuprofen 800mg tid ultram for severe pain-has at home Tobacco user 990189176 Z 72.0 still smokes 1/2 PPD stop smoking pt discontinu ed Bupropion by tapering down as advised Thrombocytosis 6096897 D 47.3 Elevated platelets with last few CBC Possibly may be due to Chronic sinusitis/ smoking/luna int inflammati on Pulmonary emphysema [address] of lungs-mohesn re emphysema, ground glass densities, and 4mm node in the lingula, subpleural reticulati onsstresse d to f/u with Pulmonolog iststop smokingnee ds follow up CT chest in 2021 Osteopenia with high fracture risk 0723436876 82007 M85.80 Bilateral lung opacities on plain chest X-ray 122766518 R91.8 tobacco use for 43 yearsopaci ties on previous [id number] CXR copdstop smokingpat ient seeing Dr Vivas pulmonolog ist [id number] Nadeem Vivas MD [facility] [address] [address] 01/08/2021 10:05:11 01/09/2021 07:29:12 Multiple nodules of lung 010834203 R91.8 4mm in the ligula, will repeat CT chest in 10/2018 IMPRESSION : ===== 11/2018 1. There are diffuse groundglas s opacificat ions are present within both the right and left lung increased as compared to prior study. Coarsening of the interstiti um is present greatest in the right upper lobe. These findings are increased as compared back to prior study may relate to underlying infectious process. Sputum culture may be of use.2. Similar-ap pearing pulmonary nodule in the lingula. Stable nodule right lung apex.3. Follow-up examinatio n is recommende d in April 2019. 04/23/2019 IMPRESSION :1. 3 mm nodule right upper lobe is stable compared with 04/24/2018. 4 mm nodulein the lingula is stable compared with 04/24/2018. No new or progressiv e nodules identified . Given the stability for one year, no specific follow-up necessary. 2. Moderate emphysema with early fibrosis.3 . Mild groundglas s opacities in the lower lobes are stable. Probablypo stinflamma tory, but indetermin ate. As a precaution , annual follow-up CTchest without contrast recommende d for this. CT 06/2020IMPR ESSION: ===== 1. The pulmonary nodule in the right upper lobe on image #43 is stable ascompared back to April 2018. The left lingular nodule on image #160 [email or web address] pared the prior study. This is greater than 2 years of stability. 2. Scattered groundglas s opacificat ions are present within the right and leftlung slightly increased in the right lower lung as compared back to 2019.3. Significan t emphysemat ous changes are present within the lungs.4. Follow-up examinatio n of the chest is recommende d in one year. Atelectasi sis now present within the lingula and left lower lung slightly increased ascompared to 2 prior examinatio ns.5. Recommend considerat ion for lung screening CT. I will repeat CT chest in 06/2021 Fibrosis of lung 7380222 [address]84[address] chest IMPRESSION : 04/2018 1. Severe emphysema. 2. Debris in the basilar and bilateral lower lobe airways could relate to retained or aspirated debris. Clinical follow-up recommende d. 3. 4 mm nodule in the lingula. Given the history of severe emphysema and smoking, 12 month follow-up CT chest without contrast recommende d. 4. Anterior subpleural reticulati ons. With a background of emphysema, concerning for early emphysema related fibrosis.5 . The history states the patient has left lower lobe opacities. However, no recent chest imaging comparison is available. If this can be made available, comparison can be made and addendum provided to this report.Aura holley was advised to take Mucinex BID Restrictiv e lung disease 63021984 J98.4 FEV1 84%, FVC 77%, FEV!/FVC 76%, BD+, TLC 71%, DLCO 44% ( 2019) secondary to pulmonary fibrosisSh e will receive flu vaccine by the end of the month. She's on Incruse ellipta, on regular basis and Ventolin HFA on as needed basis Nicotine dependence 5629 4008 F17.200 40PYH, counseled to quit for 5 minutes, she has quit Wellbutrin Nonspecifi c tuberculin test reaction 758474035 R76.11 secondary to SOLITARIO Chronic cough 34680036 R 05.3 Multifacto rial Dyspnea on exertion 6084 5006 R06.09 Multifacto rial, I will repeat PFTs, PFTs FEV1 74%, FVC 66%, FEV1/FVC 90%, TLC 107%, DLCO 44%, BD+(2020) Pulmonary Mycobacterium avium complex infection 289564693 A31.0 At this point we will not start treatment, I will schedule bronchosco py for evaluation for treatment Posterior rhinorrhea 758 97455 R09.82 Continue saline nasal spray [id number] Gui Zelaya MD [facility] [address] [place] [address] 02/05/2021 10:16:00 02/06/2021 06:43:08 Chronic obstructive pulmonary disease 61228949 J44.9 stop smokingfol low up with pulmonolog ist Essential hypertension 93804763 I10 will continue Rx stop smoking Life style modificati ons (LSM) Hyperlipidemia 66473348 E78.2 Life style modificati ons (LSM) Avoid all breads, potatoes, cereal, pasta, rice, margarine, refined sugars, milk yogurt, ice cream, juices, soda (including diet), beer, and manmade or manufactur ed desserts. Enjoy fish, chicken (no skin), pork, butter, vegetables , beans, nuts, whole eggs, cheese (low fat or skim), cream in your coffee. Hypothyroidism 67309284 E03.9 will continue with Rx last labs wnl Depressive disorder 3548 9007 F32.9 Patient stable with Rx will continue for nowPulmono logist has restarted wellbutrin for smoking cessation Impaired g lucose tolerance 0517408 R73.09 10/2018 HA1c 5.4 Osteoarthritis 133882816 M15.4 Range of motion exercises Tylenol arthritis as needed Chronic sinusitis 739107 00 J32.9 continue Benadryl prn continue nasal spray stop smoking Degenerati on of lumbar intervertebral disc 47397637 M51.36 Patient wants ibuprofen 800mg tid ultram for severe pain-has at home Tobacco user 081910408 Z 72.0 still smokes 1/2 PPD stop smoking pt discontinu ed Bupropion by tapering down as advised Thrombocytosis 7885646 D 47.3 Elevated platelets with last few CBC Possibly may be due to Chronic sinusitis/ smoking/luna int inflammati on Pulmonary emphysema [address] of lungs-mohsen re emphysema, ground glass densities, and 4mm node in the lingula, subpleural reticulati onsHad f/u with Pulmonolog ist on 01/08/2021 stop smokingnee ds follow up CT chest in 2021 Osteopenia with high fracture risk [id number] 37693 M85.80 Bilateral lung opacities on plain chest X-ray 269630120 R91.8 tobacco use for 43 yearsopaci ties on previous [id number] CXR copdstop smokingpat ient seeing Dr Vivas pulmonolog ist Nocturia 511558875 R35.1 ua dip normal [id number] Yoli Best MD [facility] [address] [place] [address] 03/07/2021 11:17:55 03/08/2021 06:54:14 Screening for malignant neoplasm of cervix 423876976 Z12.4 -Exam with co-testing -Pt educated regarding results and procedure Gynecologi c examination 17747886 Z01.419 -Routine Recommende d screening- Reports LMP as and denies sexual activity since this date; denies possibilit y of [id number] Nadeem Vivas MD [facility] [address] [place] [address] 04/16/2021 09:57:57 04/16/2021 13:04:24 Fibrosis of lung 97028553 J84.[address] chest IMPRESSION : 04/2018 1. Severe emphysema. 2. Debris in the basilar and bilateral lower lobe airways could relate to retained or aspirated debris. Clinical follow-up recommende d. 3. 4 mm nodule in the lingula. Given the history of severe emphysema and smoking, 12 month follow-up CT chest without contrast recommende d. 4. Anterior subpleural reticulati ons. With a background of emphysema, concerning for early emphysema related fibrosis.5 . The history states the patient has left lower lobe opacities. However, no recent chest imaging comparison is available. If this can be made available, comparison can be made and addendum provided to this report.Aura holley was advised to take Mucinex BID Multiple n odules of lung 897003189 R91.8 4mm in the ligula, will repeat CT chest in 10/2018 IMPRESSION : ===== 11/2018 1. There are diffuse groundglas s opacificat ions are present within both the right and left lung increased as compared to prior study. Coarsening of the interstiti um is present greatest in the right upper lobe. These findings are increased as compared back to prior study may relate to underlying infectious process. Sputum culture may be of use.2. Similar-ap pearing pulmonary nodule in the lingula. Stable nodule right lung apex.3. Follow-up examinatio n is recommende d in April 2019. 04/23/2019 IMPRESSION :1. 3 mm nodule right upper lobe is stable compared with 04/24/2018. 4 mm nodulein the lingula is stable compared with 04/24/2018. No new or progressiv e nodules identified . Given the stability for one year, no specific follow-up necessary. 2. Moderate emphysema with early fibrosis.3 . Mild groundglas s opacities in the lower lobes are stable. Probablypo stinflamma tory, but indetermin ate. As a precaution , annual follow-up CTchest without contrast recommende d for this. CT 06/2020IMPR ESSION: ===== 1. The pulmonary nodule in the right upper lobe on image #43 is stable ascompared back to April 2018. The left lingular nodule on image #160 [email or web address] pared the prior study. This is greater than 2 years of stability. 2. Scattered groundglas s opacificat ions are present within the right and leftlung slightly increased in the right lower lung as compared back to 2019.3. Significan t emphysemat ous changes are present within the lungs.4. Follow-up examinatio n of the chest is recommende d in one year. Atelectasi sis now present within the lingula and left lower lung slightly increased ascompared to 2 prior examinatio ns.5. Recommend considerat ion for lung screening CT. I will repeat CT chest in 06/2021 Chronic cough 42321758 R 05.3 Multifacto rial Restrictiv e lung disease 25581567 J98.4 FEV1 84%, FVC 77%, FEV!/FVC 76%, BD+, TLC 71%, DLCO 44% ( 2019) secondary to pulmonary fibrosisSh e will receive flu vaccine by the end of the month. She's on Incruse ellipta, on regular basis and Ventolin HFA on as needed basis Posterior rhinorrhea 758 67319 R09.82 Continue saline nasal spray Nicotine dependence 5629 4008 F17.200 40PYH, counseled to quit for 5 minutes, she has quit Wellbutrin Pulmonary Mycobacterium avium complex infection 090359137 A31.0 At this point we will not start treatment, Bronchscop y showed no infection Dyspnea on exertion 6084 5006 R06.09 Multifacto rial, I will repeat PFTs, PFTs FEV1 74%, FVC 66%, FEV1/FVC 90%, TLC 107%, DLCO 44%, BD+(2020) Nonspecifi c tuberculin test reaction 489938738 R76.11 secondary to SOLITARIO [id number] Gui Zelaya MD [facility] [address] [place] [address] 04/20/2021 12:37:53 04/24/2021 18:11:27 Essential hypertension 72036075 I10 will add b/p RX as b/p elevated stop smoking Life style modificati ons (LSM) Herpes zoster 5245990 B0 2.9 will increase Gabapentin 100mg bid to tid [id number] Gui Zelaya MD [facility] [address] [place] [address] 05/09/2021 09:56:11 05/10/2021 07:38:25 Essential hypertension 57225066 I10 she has noticed some lightheade dness sensation since starting losartan with hydrochlor othiazide 12.5mgadvi sed to drink plenty of fluidschan ge position slowlychec k b/p at home keep log of itwill continue b/p RX as b/p elevated stop smoking Life style modificati ons (LSM) Hyperlipidemia 53644355 E78.2 Life style modificati ons (LSM) Avoid all breads, potatoes, cereal, pasta, rice, margarine, refined sugars, milk yogurt, ice cream, juices, soda (including diet), beer, and manmade or manufactur ed desserts. Enjoy fish, chicken (no skin), pork, butter, vegetables , beans, nuts, whole eggs, cheese (low fat or skim), cream in your coffee. Hypothyroidism 84262908 E03.9 will continue with Rx last labs wnl Depressive disorder 3548 9007 F32.9 Patient stable with Rx will continue for nowPulmono logist has restarted wellbutrin for smoking cessation Chronic ob structive pulmonary disease 47706202 J44.9 stop smokingfol low up with pulmonolog ist Osteoarthritis 778627654 M15.4 Range of motion exercises Tylenol arthritis as needed Chronic sinusitis 434153 00 J32.9 Has not been using BenadrylGa ve samples zyrtec 10mg dailyconti nue nasal spray stop smoking Degenerati on of lumbar intervertebral disc 43179508 M51.36 Patient wants ibuprofen 800mg tid ultram for severe pain-has at home Tobacco user 698150923 Z 72.0 still smokes 1/2 PPD stop smoking pt discontinu ed Bupropion by tapering down as advised Thrombocytosis 6124537 D 47.3 Elevated platelets with last few CBC Possibly may be due to Chronic sinusitis/ smoking/luna int inflammati on Pulmonary emphysema [address] of lungs-mohsen re emphysema, ground glass densities, and 4mm node in the lingula, subpleural reticulati onsHad f/u with Pulmonolog ist on 01/08/2021 stop smokingnee ds follow up CT chest in 2021 Osteopenia with high fracture risk 0009955804 18339 M85.80 Bilateral lung opacities on plain chest X-ray 199069001 R91.8 tobacco use for 43 yearsopaci ties on previous [id number] CXR copdstop smokingpat ient seeing Dr Vivas pulmonolog istHad biopsyWas to have repeat CT chest but insurance did not cover [id number] [facility] [address] [place] [address] 07/16/2021 09:26:21 07/18/2021 13:57:56 Fibrosis of lung 76269795 J84.[address] chest IMPRESSION : 04/2018 1. Severe emphysema. 2. Debris in the basilar and bilateral lower lobe airways could relate to retained or aspirated debris. Clinical follow-up recommende d. 3. 4 mm nodule in the lingula. Given the history of severe emphysema and smoking, 12 month follow-up CT chest without contrast recommende d. 4. Anterior subpleural reticulati ons. With a background of emphysema, concerning for early emphysema related fibrosis.5 . The history states the patient has left lower lobe opacities. However, no recent chest imaging comparison is available. If this can be made available, comparison can be made and addendum provided to this report.Pat ient was advised to take Mucinex BID Multiple n odules of lung 434901887 R91.8 4mm in the ligula, will repeat CT chest in 10/2018 IMPRESSION : ===== 11/2018 1. There are diffuse groundglas s opacificat ions are present within both the right and left lung increased as compared to prior study. Coarsening of the interstiti um is present greatest in the right upper lobe. These findings are increased as compared back to prior study may relate to underlying infectious process. Sputum culture may be of use.2. Similar-ap pearing pulmonary nodule in the lingula. Stable nodule right lung apex.3. Follow-up examinatio n is recommende d in April 2019. 04/23/2019 IMPRESSION :1. 3 mm nodule right upper lobe is stable compared with 04/24/2018. 4 mm nodulein the lingula is stable compared with 04/24/2018. No new or progressiv e nodules identified . Given the stability for one year, no specific follow-up necessary. 2. Moderate emphysema with early fibrosis.3 . Mild groundglas s opacities in the lower lobes are stable. Probablypo stinflamma tory, but indetermin ate. As a precaution , annual follow-up CTchest without contrast recommende d for this. CT 06/2020IMPR ESSION: ===== 1. The pulmonary nodule in the right upper lobe on image #43 is stable ascompared back to April 2018. The left lingular nodule on image #160 stablescom pared the prior study. This is greater than 2 years of stability. 2. Scattered groundglas s opacificat ions are present within the right and leftlung slightly increased in the right lower lung as compared back to 2019.3. Significan t emphysemat ous changes are present within the lungs.4. Follow-up examinatio n of the chest is recommende d in one year. Atelectasi sis now present within the lingula and left lower lung slightly increased ascompared to 2 prior examinatio ns.5. Recommend considerat ion for lung screening CT. CT chest in 06/2021IMPR ESSION: 1. 2 mm nodule anterior right upper lobe. Not definitely larger than [place] nation, but appears somewhat rounder on today's examinatio n thanprevio usly. Short-term follow-up in 3-6 months is recommende d with CT chestwitho ut contrast.2 . The 2 other small nodules previously identified are stable and require nofurther follow-up. 3. Severe emphysema. 4. Atheroscle rosis and coronary calcificat ions. Leaflet and annuluscal cification s of the aortic valve. Correlatio n for signs of aortic stenosisre commended. 5. Prior cholecyste ctomy.will reppeat CT in 6 months Pulmonary emphysema 8743 3001 J43.9 Secondary to nicotine dependence , she will continue on Incruse ellipta on regular basis and albuterol on as needed basis. Nicotine dependence 5629 4008 F17.200 40PYH, counseled to quit for 5 minutes, she has quit Wellbutrin Restrictiv e lung disease 60442313 J98.4 FEV1 84%, FVC 77%, FEV!/FVC 76%, BD+, TLC 71%, DLCO 44% ( 2019) secondary to pulmonary fibrosisSh e will receive flu vaccine by the end of the month. 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 Reports discomfort is aching with numbness and tingling from L hip down to calf area. She was seen at [facility] on 06/06/2021. Pain is not responding to acute oral meds. Voices difficulty with sleep/movi ng from sitting to standing-r ates pain 8/10. Denies incontinen ce of feces or urine. Degenerati on of lumbar intervertebral disc 58947303 M51.36 Patient was ibuprofen 800mg tidPatient on Gabapentin 300mg tid Follow-up visit 52160237 9 Z09 c/o left low back and L hip/leg pain [id number]. Reports discomfort is aching with numbness and tingling from L hip down to calf area. She was seen at [facility] on 06/06/2021. Pain is not responding to acute oral meds. Voices difficulty with sleep/movi ng from sitting to standing-r ates pain 8/10. Denies incontinen ce of feces or urine. [id number] Gui Zelaya MD [facility] [address] [place] [address] 08/07/2021 10:02:41 08/08/2021 13:53:34 Chronic obstructive pulmonary disease 90122521 J44.9 stop smokingsaw pulmonolog ist on 07/16/21, will return in 09/2021Will be getting CT scheduled Essential hypertension 39127994 I10 Has been doing well on new medication , denies adverse reactionsa dvised to drink plenty of fluidschan ge position slowlychec k b/p at home keep log of itwill continue b/p RX as b/p is being controlled stop smoking Life style modificati ons (LSM) Hyperlipidemia 10821804 E78.2 Life style modificati ons (LSM) Avoid all breads, potatoes, cereal, pasta, rice, margarine, refined sugars, milk yogurt, ice cream, juices, soda (including diet), beer, and manmade or manufactur ed desserts. Enjoy fish, chicken (no skin), pork, butter, vegetables , beans, nuts, whole eggs, cheese (low fat or skim), cream in your coffee. Hypothyroidism 59309497 E03.9 will continue with Rx last labs wnl Body mass index less than 20 275383336 Z68.1 BMI 19.6 Chronic sinusitis 001209 00 J32.9 Has been using nasal spraystop smoking Degenerati on of lumbar intervertebral disc 93589535 M51.36 Patient was ibuprofen 800mg tidPatient on Gabapentin 300mg tid, increasing today to 400mg TID Depressive disorder 3548 9007 F32.9 Patient stable with Rx will continue for now Osteopenia with high fracture risk 3603068450 75276 M85.80 Patient taking OTC Calcium and Vitamin D Lumbosacra l radiculopathy 7240070 M54.17 Patient is a housekeepe rHas history of degenerati on of lumbar interverte bral discsVoice s pain has gotten better than it was with PT and oral medication s but has not completely subsided. Voices pain does get to a 6/10 when it is bad.Has started walking more to help. Does not want more PT as she can do the exercises herself at home.Will increase gabapentin to 400mg TID and titrate up if necessary Moderate r ecurrent major depression 78985558 F33.1 PHQ2-9 stablecont inue Rx [id number] Nadeem Vivas MD [facility] [address] [place] [address] 10/15/2021 10:17:13 10/16/2021 18:42:00 Solitary nodule of lung 048284136 R91.1 4mm in the ligula, will repeat CT chest in 10/2018IMPR ESSION: ===== . There are diffuse groundglas s opacificat ions are present within both the right and left lung increased as compared to prior study. Coarsening of the interstiti um is present greatest in the right upper lobe. These findings areincreas ed as compared back to prior study may relate to underlying infectious process. Sputum culture may be of use.2. Similar-ap pearing pulmonary nodule in the lingula. Stable nodule right lung apex.3. Follow-up examinatio n is recommende d in April 2019. 04/23/2019I MPRESSION: 1. 3 mm nodule right upper lobe is stable compared with 04/24/2018. 4 mm nodulein the lingula is stable compared with 04/24/2018. No new or progressiv e nodules identified . Given the stability for one year, no specific follow-up necessary. 2. Moderate emphysema with early fibrosis.3 . Mild groundglas s opacities in the lower lobes are stable. Probablypo stinflamma tory, but indetermin ate. As a precaution , annual follow-up CT chest without contrast recommende d for this.will repeat CT 03/2020 Fibrosis of lung 5928839 [address] chest IMPRESSION : 04/2018 1. Severe emphysema. 2. Debris in the basilar and bilateral lower lobe airways could relate to retained or aspirated debris. Clinical follow-up recommende d. 3. 4 mm nodule in the lingula. Given the history of severe emphysema and smoking, 12 month follow-up CT chest without contrast recommende d. 4. Anterior subpleural reticulati ons. With a background of emphysema, concerning for early emphysema related fibrosis.5 . The history states the patient has left lower lobe opacities. However, no recent chest imaging comparison is available. If this can be made available, comparison can be made and addendum provided to this report.Aura holley was advised to take Mucinex BID Restrictiv e lung disease 93748277 J98.4 FEV1 84%, FVC 77%, FEV!/FVC 76%, BD+, TLC 71%, DLCO 44% ( 2019) secondary to pulmonary fibrosisSh e will receive flu vaccine by the end of the month. She's on Incruse ellipta, on regular basis and Ventolin HFA on as needed basis Dyspnea on exertion 6084 5006 R06.09 Multifacto rial, repeat PFTs, PFTs FEV1 74%, FVC 66%, FEV1/FVC 90%, TLC 107%, DLCO 44%, BD+(2020) Nicotine dependence 5629 4008 F17.200 40PYH, counseled to quit for 5 minutes, she has quit Wellbutrin Posterior rhinorrhea 758 53027 R09.82 Continue saline nasal spray Chronic cough 47698739 R 05.3 Multifacto rial Pulmonary Mycobacterium avium complex infection 010561298 A31.0 At this point we will not start treatment, Bronchscop y showed no infection Nonspecifi c tuberculin test reaction 359776206 R76.11 secondary to SOLITARIO [id number] Gui Zelaya MD [facility] [address], [place] [address] 11/05/2021 10:11:57 11/06/2021 10:58:15 Chronic obstructive pulmonary disease 90308048 J44.9 stop smokingsaw pulmonolog ist on 07/16/21, will return in 09/2021Will be getting CT scheduled Essential hypertension 08194322 I10 Has been doing well on new medication , denies adverse reactionsa dvised to drink plenty of fluidschan ge position slowlychec k b/p at home keep log of itwill continue b/p RX as b/p is being controlled stop smoking Life style modificati ons (LSM) Hyperlipidemia 83266639 E78.2 Life style modificati ons (LSM) Avoid all breads, potatoes, cereal, pasta, rice, margarine, refined sugars, milk yogurt, ice cream, juices, soda (including diet), beer, and manmade or manufactur ed desserts. Enjoy fish, chicken (no skin), pork, butter, vegetables , beans, nuts, whole eggs, cheese (low fat or skim), cream in your coffee. Hypothyroidism 42139511 E03.9 will continue with Rx last labs wnl Chronic sinusitis 396819 00 J32.9 Has been using nasal spraystop smoking Degenerati on of lumbar intervertebral disc 02560920 M51.36 10/19/2021 LSS xray shows DDDPatient will go on Gabapentin 800mg tid, Depressive disorder 3548 9007 F32.9 Patient stable with Rx will continue for now Moderate r ecurrent major depression 13699216 F33.1 PHQ2-9 stablecont inue Rx Osteopenia with high fracture risk 7958801451 48266 M85.80 Patient taking OTC Calcium and Vitamin D Lumbosacra l radiculopathy 7437031 M54.17 Patient is a housekeepe rHas history of degenerati on of lumbar interverte bral discsVoice s pain has gotten better than it was with PT and oral medication s but has not completely subsided. Voices pain does get to a 6/10 when it is bad.Has started walking more to help. Does not want more PT as she can do the exercises herself at home.Will increase gabapentin to 800mg TID 022 LSS xray shows DDD Body mass index less than 20 325077092 Z68.1 BMI 19.6 Screening for malignant neoplasm of breast 857436283 Z12.31 [id number] Gui Zelaya MD [facility] [address] [place] [address] 11/21/2021 10:00:31 11/22/2021 19:46:04 Essential hypertension 12749707 I10 Has been doing well on new medication , denies adverse reactionsa dvised to drink plenty of fluidschan ge position slowlychec k b/p at home keep log of itwill continue b/p RX as b/p is being controlled stop smoking Life style modificati ons ([facility]) [id number] Nadeem Vivas MD [facility] [address] [place] [address] 01/21/2022 10:30:59 01/21/2022 11:52:58 Pulmonary Mycobacterium avium complex infection 050310007 A31.0 At this point we will not start treatment, Bronchscop y showed no infection Fibrosis of lung 2573836 [address] chest IMPRESSION : 04/2018 1. Severe emphysema. 2. Debris in the basilar and bilateral lower lobe airways could relate to retained or aspirated debris. Clinical follow-up recommende d. 3. 4 mm nodule in the lingula. Given the history of severe emphysema and smoking, 12 month follow-up CT chest without contrast recommende d. 4. Anterior subpleural reticulati ons. With a background of emphysema, concerning for early emphysema related fibrosis.5 . The history states the patient has left lower lobe opacities. However, no recent chest imaging comparison is available. If this can be made available, comparison can be made and addendum provided to this report.Aura holley was advised to take Mucinex BID Restrictiv e lung disease 25537949 J98.4 FEV1 84%, FVC 77%, FEV!/FVC 76%, BD+, TLC 71%, DLCO 44% ( 2019) secondary to pulmonary fibrosisSh lorena will receive flu vaccine by the end of the month. She's on Incruse ellipta, on regular basis and Ventolin HFA on as needed basis Multiple n odules of lung 416649366 R91.8 4mm in the ligula, will repeat CT chest in 10/2018 IMPRESSION : ===== 11/2018 1. There are diffuse groundglas s opacificat ions are present within both the right and left lung increased as compared to prior study. Coarsening of the interstiti um is present greatest in the right upper lobe. These findings are increased as compared back to prior study may relate to underlying infectious process. Sputum culture may be of use.2. Similar-ap pearing pulmonary nodule in the lingula. Stable nodule right lung apex.3. Follow-up examinatio n is recommende d in April 2019. 04/23/2019 IMPRESSION :1. 3 mm nodule right upper lobe is stable compared with 04/24/2018. 4 mm nodulein the lingula is stable compared with 04/24/2018. No new or progressiv e nodules identified . Given the stability for one year, no specific follow-up necessary. 2. Moderate emphysema with early fibrosis.3 . Mild groundglas s opacities in the lower lobes are stable. Probablypo stinflamma tory, but indetermin ate. As a precaution , annual follow-up CTchest without contrast recommende d for this. CT 06/2020IMPR ESSION: ===== 1. The pulmonary nodule in the right upper lobe on image #43 is stable ascompared back to April 2018. The left lingular nodule on image #160 stablescom pared the prior study. This is greater than 2 years of stability. 2. Scattered groundglas s opacificat ions are present within the right and leftlung slightly increased in the right lower lung as compared back to 2019.3. Significan t emphysemat ous changes are present within the lungs.4. Follow-up examinatio n of the chest is recommende d in one year. Atelectasi sis now present within the lingula and left lower lung slightly increased ascompared to 2 prior examinatio ns.5. Recommend considerat ion for lung screening CT. CT chest in 06/2021IMPR ESSION: 1. 2 mm nodule anterior right upper lobe. Not definitely larger [place], but appears somewhat rounder on today's examinatio n thanprevio usly. Short-term follow-up in 3-6 months is recommende d with CT chestwitho ut contrast.2 . The 2 other small nodules previously identified are stable and require nofurther follow-up. 3. Severe emphysema. 4. Atheroscle rosis and coronary calcificat ions. Leaflet and annuluscal cification s of the aortic valve. Correlatio n for signs of aortic stenosisre commended. 5. Prior cholecyste ctomy.CT . Stable previous identified pulmonary nodules over greater than 2 years andtherefo re can be considered benign. No apparent new pulmonary nodules.2. New atelectasi s in the lingula. Recommend follow-up CT in 6 months forsurveil luz in order to exclude coexisting lesion.3. Stable dilation of the ascending thoracic aorta. i will repeat CT 06/2022 Nicotine dependence 5629 4008 F17.200 40PYH, counseled to quit for 5 minutes, she has quit Wellbutrin Dyspnea on exertion 6084 5006 R06.09 Multifacto rial, repeat PFTs, PFTs FEV1 74%, FVC 66%, FEV1/FVC 90%, TLC 107%, DLCO 44%, BD+(2020) Nonspecifi c tuberculin test reaction 274505401 R76.11 secondary to SOLITARIO Chronic cough 45170209 R 05.3 Multifacto rial Posterior rhinorrhea 758 71537 R09.82 Continue saline nasal spray [id number] Gui Garcia, MD [facility] [address] [place] [address] 02/05/2022 09:57:34 02/07/2022 12:26:13 Essential hypertension 55945390 I10 Has been doing well on new medication , denies adverse reactionsa dvised to drink plenty of fluidschan ge position slowlychec k b/p at home keep log of itwill continue b/p RX as b/p is being controlled stop smoking Life style modificati ons (LSM) Hyperlipidemia 17042608 E78.2 Life style modificati ons (LSM)06/05ho 213.6trig 108HDL 57.4LDL 132 02/05/2022 cho 225trig 75HDL 74LDL 138Avoid all breads, potatoes, cereal, pasta, rice, margarine, refined sugars, milk yogurt, ice cream, juices, soda (including diet), beer, and manmade or manufactur ed desserts. Enjoy fish, chicken (no skin), pork, butter, vegetables , beans, nuts, whole eggs, cheese (low fat or skim), cream in your coffee. Hypothyroidism 75631405 E03.9 will continue with Rx last labs wnl Chronic ob structive pulmonary disease 49596871 J44.9 stop smokingsaw pulmonolog ist on 01/21/22,W ill be getting CT scheduled for 06/2022 Chronic sinusitis 170491 00 J32.9 Has been using nasal spraystop smoking Degenerati on of lumbar intervertebral disc 96970232 M51.36 10/19/2021 LSS xray shows DDDPatient will go on Gabapentin 800mg tid,2021 MRI LS spine shows multilevel DDD1. Multilevel degenerati ve changes of the lumbar spine as described level bylevel above.2. Severe left neural foraminal stenosis at L5-S1.3. Moderate disc bulge at L5-S1 with a small superimpos ed leftparace ntral/suba rticular disc protrusion in close proximity to the traversing left S1 nerve root.Patie nt has appointmen t with pain management 02/2022 Lumbosacra l radiculopathy 5038160 M54.17 Patient is a housekeepe rHas history of degenerati on of lumbar interverte bral discsVoice s pain has gotten better than it was with PT and oral medication s but has not completely subsided. Voices pain does get to a 6/10 when it is bad.Has started walking more to help. Does not want more PT as she can do the exercises herself at home.Will increase gabapentin to 800mg TID LSS xray shows DDD MRI of LSS shows1. Multilevel degenerati ve changes of the lumbar spine as described level bylevel above.2. Severe left neural foraminal stenosis at L5-S1.3. Moderate disc bulge at L5-S1 with a small superimpos ed leftparace ntral/suba rticular disc protrusion in close proximity to the traversing left S1 nerve root. Moderate r ecurrent major depression 09934079 F33.1 PHQ2-9 stablecont inue Rx Depressive disorder 3548 9007 F32.9 Patient stable with Rx will continue for now Osteopenia with high fracture risk 0432115542 24639 M85.80 Patient taking OTC Calcium and Vitamin D Body mass index less than 20 971309009 Z68.1 BMI 19.6 Administra tion of influenza vaccine 42051532 Z23 Active or passive immunization 300461321 Z23 [id number] Gui Zelaya MD [facility] [address] [place] [address] 05/13/2022 09:55:31 05/14/2022 15:26:10 Essential hypertension 99723463 I10 Has been doing well on new medication , denies adverse reactionsa dvised to drink plenty of fluidschan ge position slowlychec k b/p at home keep log of itwill continue b/p RX as b/p is being controlled stop smoking Life style modificati ons (LSM) Hyperlipidemia 91914688 E78.2 Life style modificati ons (LSM)06/051cho 213.6trig 108HDL 57.4LDL 132 02/05/2022 cho 225trig 75HDL 74LDL 138Avoid all breads, potatoes, cereal, pasta, rice, margarine, refined sugars, milk yogurt, ice cream, juices, soda (including diet), beer, and manmade or manufactur ed desserts. Enjoy fish, chicken (no skin), pork, butter, vegetables , beans, nuts, whole eggs, cheese (low fat or skim), cream in your coffee. Hypothyroidism 72708277 E03.9 will continue with Rx last labs wnl Osteoarthritis 852772330 M15.4 Range of motion exercises Tylenol arthritis as needed Chronic ob structive pulmonary disease 31141323 J44.9 stop smokingsaw pulmonolog ist on 01/21/22,W ill be getting CT scheduled for 06/2022 Chronic sinusitis 686366 00 J32.9 Has been using nasal spraystop smoking Degenerati on of lumbar intervertebral disc 55120261 M51.36 10/19/2021 LSS xray shows DDDPatient will go on Gabapentin 800mg tid,2021 MRI LS spine shows multilevel DDD1. Multilevel degenerati ve changes of the lumbar spine as described level bylevel above.2. Severe left neural foraminal stenosis at L5-S1.3. Moderate disc bulge at L5-S1 with a small superimpos ed leftparace ntral/suba rticular disc protrusion in close proximity to the traversing left S1 nerve root.Patie nt has appointmen t with pain management 02/2022 Depressive disorder 3548 9007 F32.9 Patient stable with Rx will continue for now Osteopenia with high fracture risk 6273577179 24568 M85.80 Patient taking OTC Calcium and Vitamin D Body mass index less than 20 207441362 Z68.1 BMI 19.3 Lumbosacra l radiculopathy 6388506 M54.17 Patient is a housekeepe rHas history of degenerati on of lumbar interverte bral discsVoice s pain has gotten better than it was with PT and oral medication s but has not completely subsided. Voices pain does get to a 6/10 when it is bad.Has started walking more to help. Does not want more PT as she can do the exercises herself at home.Will increase gabapentin to 800mg TID LSS xray shows DDD MRI of LSS shows1. Multilevel degenerati ve changes of the lumbar spine as described level bylevel above.2. Severe left neural foraminal stenosis at L5-S1.3. Moderate disc bulge at L5-S1 with a small superimpos ed leftparace ntral/suba rticular disc protrusion in close proximity to the traversing left S1 nerve root. Moderate r ecurrent major depression 72277933 F33.1 PHQ2-9 stablecont inue Rx Mental hea lth screening 828994929 Z13.39 Depression screening 171 557381 Z13.31 [id number] Gui Zelaya MD [facility] [address] [place] [address] 05/22/2022 15:08:06 06/12/2022 11:28:41 Serum thyroid stimulating hormone level outside reference range 095370996 R79.89 [id number] Nadeem Vivas MD [facility] [address] [place] [address] 07/15/2022 10:28:41 07/16/2022 08:13:00 Pulmonary emphysema 63674164 J43.9 Secondary to nicotine dependence , she will continue on Incruse ellipta on regular basis and albuterol on as needed basis. Nicotine dependence 5629 4008 F17.200 40PYH, counseled to quit for 5 minutes, she has quit Wellbutrin Dyspnea on exertion 6084 5006 R06.09 Multifacto rial, repeat PFTs, PFTs FEV1 74%, FVC 66%, FEV1/FVC 90%, TLC 107%, DLCO 44%, BD+(2020) Fibrosis of lung 4933519 [address] chest IMPRESSION : 04/2018 1. Severe emphysema. 2. Debris in the basilar and bilateral lower lobe airways could relate to retained or aspirated debris. Clinical follow-up recommende d. 3. 4 mm nodule in the lingula. Given the history of severe emphysema and smoking, 12 month follow-up CT chest without contrast recommende d. 4. Anterior subpleural reticulati ons. With a background of emphysema, concerning for early emphysema related fibrosis.5 . The history states the patient has left lower lobe opacities. However, no recent chest imaging comparison is available. If this can be made available, comparison can be made and addendum provided to this report.Pat ient was advised to take Mucinex BID Pulmonary Mycobacterium avium complex infection 274742076 A31.0 At this point we will not start treatment, Bronchscop y showed no infection Multiple n odules of lung 283813982 R91.8 4mm in the ligula, will repeat CT chest in 10/2018 IMPRESSION : ===== 11/2018 1. There are diffuse groundglas s opacificat ions are present within both the right and left lung increased as compared to prior study. Coarsening of the interstiti um is present greatest in the right upper lobe. These findings are increased as compared back to prior study may relate to underlying infectious process. Sputum culture may be of use.2. Similar-ap pearing pulmonary nodule in the lingula. Stable nodule right lung apex.3. Follow-up examinatio n is recommende d in April 2019. 04/23/2019 IMPRESSION :1. 3 mm nodule right upper lobe is stable compared with 04/24/2018. 4 mm nodulein the lingula is stable compared with 04/24/2018. No new or progressiv e nodules identified . Given the stability for one year, no specific follow-up necessary. 2. Moderate emphysema with early fibrosis.3 . Mild groundglas s opacities in the lower lobes are stable. Probablypo stinflamma tory, but indetermin ate. As a precaution , annual follow-up CTchest without contrast recommende d for this. CT 06/2020IMP ESSION: ===== 1. The pulmonary nodule in the right upper lobe on image #43 is stable ascompared back to April 2018. The left lingular nodule on image #160 stablescom pared the prior study. This is greater than 2 years of stability. 2. Scattered groundglas s opacificat ions are present within the right and leftlung slightly increased in the right lower lung as compared back to 2019.3. Significan t emphysemat ous changes are present within the lungs.4. Follow-up examinatio n of the chest is recommende d in one year. Atelectasi sis now present within the lingula and left lower lung slightly increased ascompared to 2 prior examinatio ns.5. Recommend considerat ion for lung screening CT. CT chest in 06/2021IMPR ESSION: 1. 2 mm nodule anterior right upper lobe. Not definitely larger than [place], but appears somewhat rounder on today's examinatio n thanprevio juan a. Short-term follow-up in 3-6 months is recommende d with CT chestwitho ut contrast.2 . The 2 other small nodules previously identified are stable and require nofurther follow-up. 3. Severe emphysema. 4. Atheroscle rosis and coronary calcificat ions. Leaflet and annuluscal cification s of the aortic valve. Correlatio n for signs of aortic stenosisre commended. 5. Prior cholecyste ctomy.CT . Stable previous identified pulmonary nodules over greater than 2 years and therefore can be considered benign. No apparent new pulmonary nodules.2. New atelectasi s in the lingula. Recommend follow-up CT in 6 months for surveillan ce in order to exclude coexisting lesion.3. Stable dilation of the ascending thoracic aorta. i will repeat CT . Stable pulmonary nodules compatible with benign etiology.2 . Stable focal area of consolidat mya atelectasi s in the lingula.3. Chronic lung disease with grossly no significan t interval change. This includes chronic interstiti al disease, chronic patchy groundglas s opacities, emphysema and chronic bronchitis .4. Atheroscle rotic disease. Posterior rhinorrhea 758 37562 R09.82 Continue saline nasal spray Nonspecifi c tuberculin test reaction 921130501 R76.11 secondary to SOLITARIO Chronic cough 11589391 R 05.3 Multifacto rial Chronic ob structive pulmonary disease 74898109 J44.9 Secondary to above [id number] Nadeem Vivas MD [facility] [address] [place] [address] 11/18/2022 09:53:04 11/20/2022 08:31:45 Fibrosis of lung 54656503 J84.[address] chest IMPRESSION : 04/2018 1. Severe emphysema. 2. Debris in the basilar and bilateral lower lobe airways could relate to retained or aspirated debris. Clinical follow-up recommende d. 3. 4 mm nodule in the lingula. Given the history of severe emphysema and smoking, 12 month follow-up CT chest without contrast recommende d. 4. Anterior subpleural reticulati ons. With a background of emphysema, concerning for early emphysema related fibrosis.5 . The history states the patient has left lower lobe opacities. However, no recent chest imaging comparison is available. If this can be made available, comparison can be made and addendum provided to this report.Aura holley was advised to take Mucinex BID Pulmonary Mycobacterium avium complex infection 919123799 A31.0 At this point we will not start treatment, Bronchscop y showed no infection Multiple n odules of lung 077021814 R91.8 4mm in the ligula, will repeat CT chest in 10/2018 IMPRESSION : ===== 11/2018 1. There are diffuse groundglas s opacificat ions are present within both the right and left lung increased as compared to prior study. Coarsening of the interstiti um is present greatest in the right upper lobe. These findings are increased as compared back to prior study may relate to underlying infectious process. Sputum culture may be of use.2. Similar-ap pearing pulmonary nodule in the lingula. Stable nodule right lung apex.3. Follow-up examinatio n is recommende d in April 2019. 04/23/2019 IMPRESSION :1. 3 mm nodule right upper lobe is stable compared with 04/24/2018. 4 mm nodulein the lingula is stable compared with 04/24/2018. No new or progressiv e nodules identified . Given the stability for one year, no specific follow-up necessary. 2. Moderate emphysema with early fibrosis.3 . Mild groundglas s opacities in the lower lobes are stable. Probablypo stinflamma tory, but indetermin ate. As a precaution , annual follow-up CTchest without contrast recommende d for this. CT 06/2020IMPR ESSION: ===== 1. The pulmonary nodule in the right upper lobe on image #43 is stable ascompared back to April 2018. The left lingular nodule on image #160 stablescom pared the prior study. This is greater than 2 years of stability. 2. Scattered groundglas s opacificat ions are present within the right and leftlung slightly increased in the right lower lung as compared back to 2018.3. Significan t emphysemat ous changes are present within the lungs.4. Follow-up examinatio n of the chest is recommende d in one year. Atelectasi sis now present within the lingula and left lower lung slightly increased ascompared to 2 prior examinatio ns.5. Recommend considerat ion for lung screening CT. CT chest in 06/2021IMPR ESSION: 1. 2 mm nodule anterior right upper lobe. Not definitely larger [place], but appears somewhat rounder on today's examinatio n thanprevio usly. Short-term follow-up in 3-6 months is recommende d with CT chestwitho ut contrast.2 . The 2 other small nodules previously identified are stable and require nofurther follow-up. 3. Severe emphysema. 4. Atheroscle rosis and coronary calcificat ions. Leaflet and annuluscal cification s of the aortic valve. Correlatio n for signs of aortic stenosisre commended. 5. Prior cholecyste ctomy.CT . Stable previous identified pulmonary nodules over greater than 2 years and therefore can be considered benign. No apparent new pulmonary nodules.2. New atelectasi s in the lingula. Recommend follow-up CT in 6 months for surveillan ce in order to exclude coexisting lesion.3. Stable dilation of the ascending thoracic aorta. i will repeat CT . Stable pulmonary nodules compatible with benign etiology.2 . Stable focal area of consolidat mya atelectasi s in the lingula.3. Chronic lung disease with grossly no significan t interval change. This includes chronic interstiti al disease, chronic patchy groundglas s opacities, emphysema and chronic bronchitis .4. Atheroscle rotic disease. Nonspecifi c tuberculin test reaction 633333103 R76.11 secondary to SOLITARIO Chronic ob structive pulmonary disease 63224781 J44.9 Secondary to above, will check PFTs Pulmonary emphysema 8743 3001 J43.9 Secondary to nicotine dependence , she will continue on Incruse ellipta on regular basis and albuterol on as needed basis. Dyspnea on exertion 6084 5006 R06.09 Multifacto rial, repeat PFTs, PFTs FEV1 74%, FVC 66%, FEV1/FVC 90%, TLC 107%, DLCO 44%, BD+(2020) Posterior rhinorrhea 758 13864 R09.82 Continue saline nasal spray Chronic cough 87925145 R 05.3 Multifacto rial Nicotine dependence 5629 4008 F17.200 40PYH, counseled to quit for 5 minutes, she has quit Wellbutrin [id number] Gui Zelaya MD [facility] [address] [place] [address] 12/09/2022 14:13:08 12/10/2022 10:15:01 Chronic obstructive pulmonary disease 12637226 J44.9 stop smokingsaw pulmonolog istGot CT of lungs in 2022 Essential hypertension 88984009 I10 Has been doing well on new medication , denies adverse reactionsa dvised to drink plenty of fluidschan ge position slowlychec k b/p at home keep log of itwill continue b/p RX as b/p is being controlled stop smoking Life style modificati ons (LSM) Hyperlipidemia 96778478 E78.2 Life style modificati ons (LSM)06/051cho 213.6trig 108HDL 57.4LDL 132 02/05/2022 cho 225trig 75HDL 74LDL 138Avoid all breads, potatoes, cereal, pasta, rice, margarine, refined sugars, milk yogurt, ice cream, juices, soda (including diet), beer, and manmade or manufactur ed desserts. Enjoy fish, chicken (no skin), pork, butter, vegetables , beans, nuts, whole eggs, cheese (low fat or skim), cream in your coffee. Hypothyroidism 74681042 E03.9 Dx 06/27/2012on Euthyrox 125mcg tablet once daily + thyroid antibodies Osteoarthritis 128713084 M15.4 Range of motion exercises Tylenol arthritis as needed Chronic sinusitis 350889 00 J32.9 Has been using nasal spraystop smoking Degenerati on of lumbar intervertebral disc 17950875 M51.36 10/19/2021 LSS xray shows DDDPatient will go on Gabapentin 800mg tid,2021 MRI LS spine shows multilevel DDD1. Multilevel degenerati ve changes of the lumbar spine as described level by level above. 2. Severe left neural foraminal stenosis at L5-S1. 3. Moderate disc bulge at L5-S1 with a small superimpos ed left paracentra l/subartic ular disc protrusion in close proximity to the traversing left S1 nerve root.Patie nt has appointmen t with pain management 02/2022 Depressive disorder 3548 9007 F32.9 Patient stable with Rx will continue for now Osteopenia with high fracture risk 6065554504 63376 M85.80 Patient taking OTC Calcium and Vitamin D Body mass index less than 20 760571437 Z68.1 BMI 19.3 Lumbosacra l radiculopathy 8971828 M54.17 Patient is a housekeepe rHas history of degenerati on of lumbar interverte bral discsVoice s pain has gotten better than it was with PT and oral medication s but has not completely subsided. Voices pain does get to a 6/10 when it is bad.Has started walking more to help. Does not want more PT as she can do the exercises herself at home.Will increase gabapentin to 800mg TID 022 LSS xray shows DDD MRI of LSS shows1. Multilevel degenerati ve changes of the lumbar spine as described level by level above. 2. Severe left neural foraminal stenosis at L5-S1. 3. Moderate disc bulge at L5-S1 with a small superimpos ed left paracentra l/subartic ular disc protrusion in close proximity to the traversing left S1 nerve root. Moderate r ecurrent major depression 31629605 F33.1 PHQ2-9 0 stablecont inue Rx Mental hea lth screening 567598732 Z13.39 negative Depression screening 171 909224 Z13.31 negative Autoimmune thyroiditis 41608521 E06.3 05/22/2022 TSSH 0.030T4 1.84 Pruritic rash 70440777 L 28.2 [id number] Gui Zelaya MD [facility] [address], [place] [address] 01/13/2023 12:09:00 01/23/2023 14:12:26 Chronic obstructive pulmonary disease 75176325 J44.9 stop smokingsaw pulmonolog istGot CT of lungs in 2022 Administra tion of influenza vaccine 51639897 Z23 Depression screening 171 108037 Z13.31 negative Mental hea lth screening 371164521 Z13.39 negative [id number] Gui Zelaya MD [facility] [address] [place] [address] 02/10/2023 09:50:09 02/19/2023 11:59:45 Hyperlipidemia 73522471 E78.2 Life style modificati ons (LSM)06/05ho 213.6trig 108HDL 57.4LDL 132 02/05/2022 cho 225trig 75HDL 74LDL 138Avoid all breads, potatoes, cereal, pasta, rice, margarine, refined sugars, milk yogurt, ice cream, juices, soda (including diet), beer, and manmade or manufactur ed desserts. Enjoy fish, chicken (no skin), pork, butter, vegetables , beans, nuts, whole eggs, cheese (low fat or skim), cream in your coffee. Autoimmune thyroiditis 19997232 E06.3 05/22/2022 TSSH 0.030T4 1.84 [id number] Gui Zelaya MD [facility] [address] [address] 03/10/2023 10:52:21 03/14/2023 08:06:49 Essential hypertension 78922546 I10 BP Goal: Less than 150/90BP Controlled : yes; per the JNC8 guidelines in the absence of renal disease and DMHealthy Weight: 5'1= 100-131 lbsDiscuss ed: Low sodium balanced diet, moderate exercise at least 3-4 times per week for an average of 40 minutesNex t Visit: 3month(s) Hyperlipidemia 43031390 E78.2 Life style modificati ons (LSM)06/05ho 213.6trig 108HDL 57.4LDL 132 02/05/2022 cho 225trig 75HDL 74LDL 138 02/10/2023 cho 185trig 173HDL 73LDL 108Avoid all breads, potatoes, cereal, pasta, rice, margarine, refined sugars, milk yogurt, ice cream, juices, soda (including diet), beer, and manmade or manufactur ed desserts. Enjoy fish, chicken (no skin), pork, butter, vegetables , beans, nuts, whole eggs, cheese (low fat or skim), cream in your coffee. Hypothyroidism 22328778 E03.9 Dx 06/27/2012on Euthyrox 125mcg tablet once daily02/10 TSH 1.070, T4 1.21 + thyroid antibodies Chronic ob structive pulmonary disease 46793754 J44.9 stop smokingsaw pulmonolog istGot CT of lungs in 2022 Depression screening 171 428835 Z13.31 negative Mental hea lth screening 039349717 Z13.39 negative Autoimmune thyroiditis 77788232 E06.3 05/22/2022 TSSH 0.030T4 1.84 02/10/2023 TSH 1.070, T4 1.21 Osteoarthritis 617616207 M15.4 Range of motion exercises Tylenol arthritis as needed Osteopenia with high fracture risk 1230356164 58630 M85.80 Patient taking OTC Calcium and Vitamin D Chronic sinusitis 120584 00 J32.9 Has been using nasal spraystop smoking Degenerati on of lumbar intervertebral disc 99577668 M51.36 10/19/2021 LSS xray shows DDDPatient will go on Gabapentin 800mg tid,2021 MRI LS spine shows multilevel DDD1. Multilevel degenerati ve changes of the lumbar spine as described level by level above. 2. Severe left neural foraminal stenosis at L5-S1. 3. Moderate disc bulge at L5-S1 with a small superimpos ed left paracentra l/subartic ular disc protrusion in close proximity to the traversing left S1 nerve root.Kacie gross has appointmen t with pain management 02/2022 Depressive disorder 3548 9007 F32.9 Patient stable with Rx will continue for now Lumbosacra l radiculopathy 0032067 M54.17 Patient is a housekeepe rHas history of degenerati on of lumbar interverte bral discsVoice s pain has gotten better than it was with PT and oral medication s but has not completely subsided. Voices pain does get to a 6/10 when it is bad.Has started walking more to help. Does not want more PT as she can do the exercises herself at home.Will increase gabapentin to 800mg TID LSS xray shows DDD MRI of LSS shows1. Multilevel degenerati ve changes of the lumbar spine as described level by level above. 2. Severe left neural foraminal stenosis at L5-S1. 3. Moderate disc bulge at L5-S1 with a small superimpos ed left paracentra l/subartic ular disc protrusion in close proximity to the traversing left S1 nerve root. Moderate r ecurrent major depression 90267615 F33.1 PHQ2-9 stablecont inue Rx Tobacco user 580799082 Z 72.0 still smokes 1/2 PPD stop smoking pt discontinu ed Bupropion by tapering down as advisedRep orts patches irritated skin [id number] Nadeem Vivas MD [facility] [address] [place] [address] 03/31/2023 09:57:26 03/31/2023 14:37:37 Chronic obstructive pulmonary disease 28958020 J44.9 Secondary to above, PFT QPT800%, FVC 70%, FEV1/FVC 74%, DLCO 41%, BD+(2022) Fibrosis of lung 7109631 [address] chest IMPRESSION : 04/2018 1. Severe emphysema. 2. Debris in the basilar and bilateral lower lobe airways could relate to retained or aspirated debris. Clinical follow-up recommende d. 3. 4 mm nodule in the lingula. Given the history of severe emphysema and smoking, 12 month follow-up CT chest without contrast recommende d. 4. Anterior subpleural reticulati ons. With a background of emphysema, concerning for early emphysema related fibrosis.5 . The history states the patient has left lower lobe opacities. However, no recent chest imaging comparison is available. If this can be made available, comparison can be made and addendum provided to this report.Pat ient was advised to take Mucinex BID Pulmonary Mycobacterium avium complex infection 366518565 A31.0 At this point we will not start treatment, Bronchscop y showed no infection Multiple n odules of lung 263678767 R91.8 4mm in the ligula, will repeat CT chest in 10/2018 IMPRESSION : ===== 11/2018 1. There are diffuse groundglas s opacificat ions are present within both the right and left lung increased as compared to prior study. Coarsening of the interstiti um is present greatest in the right upper lobe. These findings are increased as compared back to prior study may relate to underlying infectious process. Sputum culture may be of use.2. Similar-ap pearing pulmonary nodule in the lingula. Stable nodule right lung apex.3. Follow-up examinatio n is recommende d in April 2019. 04/23/2019 IMPRESSION :1. 3 mm nodule right upper lobe is stable compared with 04/24/2018. 4 mm nodulein the lingula is stable compared with 04/24/2018. No new or progressiv e nodules identified . Given the stability for one year, no specific follow-up necessary. 2. Moderate emphysema with early fibrosis.3 . Mild groundglas s opacities in the lower lobes are stable. Probablypo stinflamma tory, but indetermin ate. As a precaution , annual follow-up CTchest without contrast recommende d for this. CT 06/2020IMPR ESSION: ===== 1. The pulmonary nodule in the right upper lobe on image #43 is stable ascompared back to April 2018. The left lingular nodule on image #160 [email or web address] pared the prior study. This is greater than 2 years of stability. 2. Scattered groundglas s opacificat ions are present within the right and leftlung slightly increased in the right lower lung as compared back to 2018.3. Significan t emphysemat ous changes are present within the lungs.4. Follow-up examinatio n of the chest is recommende d in one year. Atelectasi sis now present within the lingula and left lower lung slightly increased ascompared to 2 prior examinatio ns.5. Recommend considerat ion for lung screening CT. CT chest in 06/2021IMPR ESSION: 1. 2 mm nodule anterior right upper lobe. Not definitely larger [place], but appears somewhat rounder on today's examinatio n thanprevio usly. Short-term follow-up in 3-6 months is recommende d with CT chestwitho ut contrast.2 . The 2 other small nodules previously identified are stable and require nofurther follow-up. 3. Severe emphysema. 4. Atheroscle rosis and coronary calcificat ions. Leaflet and annuluscal cification s of the aortic valve. Correlatio n for signs of aortic stenosisre commended. 5. Prior cholecyste ctomy.CT . Stable previous identified pulmonary nodules over greater than 2 years and therefore can be considered benign. No apparent new pulmonary nodules.2. New atelectasi s in the lingula. Recommend follow-up CT in 6 months for surveillan ce in order to exclude coexisting lesion.3. Stable dilation of the ascending thoracic aorta. i will repeat CT . Stable pulmonary nodules compatible with benign etiology.2 . Stable focal area of consolidat mya atelectasi s in the lingula.3. Chronic lung disease with grossly no significan t interval change. This includes chronic interstiti al disease, chronic patchy groundglas s opacities, emphysema and chronic bronchitis .4. Atheroscle rotic disease. LDCT will be done in 12/15 Nonspecifi c tuberculin test reaction 926537479 R76.11 secondary to SOLITARIO Pulmonary emphysema 8743 3001 J43.9 Secondary to nicotine dependence , she will continue on Incruse ellipta on regular basis and albuterol on as needed basis. Dyspnea on exertion 6084 5006 R06.09 Multifacto rial, repeat PFTs, PFTs FEV1 74%, FVC 66%, FEV1/FVC 90%, TLC 107%, DLCO 44%, BD+(2020) Posterior rhinorrhea 758 80846 R09.82 Continue saline nasal spray Chronic cough 13482921 R 05.3 Multifacto rial Nicotine dependence 5629 4008 F17.200 40PYH, counseled to quit for 5 minutes, she has quit Wellbutrin Air trapping 14740817 J9 8.8 RV 202% Chest over-expanded 2496 16813 Q67.8 TLC 131% Allergic rhinitis 396212 04 J30.9 Continue Singulair [id number] Gui Zelaya MD [facility] [address] [place] [address] 06/02/2023 10:59:31 06/12/2023 10:57:07 Chronic obstructive pulmonary disease 73081322 J44.9 stop smokingsaw pulmonolog istGot CT of lungs in 2022 Hyperlipidemia 35357626 E78.2 Life style modificati ons (LSM)06/05ho 213.6trig 108HDL 57.4LDL 132 02/05/2022 cho 225trig 75HDL 74LDL 138 02/10/2023 cho 185trig 173HDL 73LDL 108Avoid all breads, potatoes, cereal, pasta, rice, margarine, refined sugars, milk yogurt, ice cream, juices, soda (including diet), beer, and manmade or manufactur ed desserts. Enjoy fish, chicken (no skin), pork, butter, vegetables , beans, nuts, whole eggs, cheese (low fat or skim), cream in your coffee. Essential hypertension 11030836 I10 BP Goal: Less than 150/90BP Controlled : yes; per the JNC8 guidelines in the absence of renal disease and DMHealthy Weight: 5'1= 100-131 lbsDiscuss ed: Low sodium balanced diet, moderate exercise at least 3-4 times per week for an average of 40 minutesNex t Visit: 3month(s) Hypothyroidism 03073715 E03.9 Dx 06/27/2012on Euthyrox 112mcg tablet once daily02/10 TSH 1.070, T4 1.21 + thyroid antibodies Autoimmune thyroiditis 21362469 E06.3 05/22/2022 TSSH 0.030T4 1.84 02/10/2023 TSH 1.070, T4 1.21contin ue Euthyrox 112mcg daily gets Rx from [facility]O Osteoarthritis 054963292 M15.4 Range of motion exercises Tylenol arthritis as needed Lumbosacra l radiculopathy 8027222 M54.17 Patient is a housekeepe rHas history of degenerati on of lumbar interverte bral discsVoice s pain has gotten better than it was with PT and oral medication s but has not completely subsided. Voices pain does get to a 6/10 when it is bad.Has started walking more to help. Does not want more PT as she can do the exercises herself at home.Will increase gabapentin to 800mg TID 022 LSS xray shows DDD MRI of LSS shows1. Multilevel degenerati ve changes of the lumbar spine as described level by level above. 2. Severe left neural foraminal stenosis at L5-S1. 3. Moderate disc bulge at L5-S1 with a small superimpos ed left paracentra l/subartic ular disc protrusion in close proximity to the traversing left S1 nerve root. Chronic sinusitis 188219 00 J32.9 Has been using nasal spraystop smoking Degenerati on of lumbar intervertebral disc 42945622 M51.36 10/19/2021 LSS xray shows DDDPatient will go on Gabapentin 800mg tid,2021 MRI LS spine shows multilevel DDD1. Multilevel degenerati ve changes of the lumbar spine as described level by level above. 2. Severe left neural foraminal stenosis at L5-S1. 3. Moderate disc bulge at L5-S1 with a small superimpos ed left paracentra l/subartic ular disc protrusion in close proximity to the traversing left S1 nerve root.Patie nt has appointmen t with pain management 02/2022 Moderate r ecurrent major depression 10667935 F33.1 PHQ2-9 stablecont inue Rx Depressive disorder 3548 9007 F32.9 Patient stable with Rx will continue for now Osteopenia with high fracture risk 0554357327 79514 M85.80 Patient taking OTC Calcium and Vitamin D Depression screening 171 517845 Z13.31 negative Mental hea lt screening 445271919 Z13.39 negative Tobacco user 780448206 Z 72.0 still smokes 1/2 PPD stop smoking pt discontinu ed Bupropion by tapering down as advisedRep orts patches irritated skin Vitamin D deficiency 347 11657 E55.9 Vitamin D 9Start Rx Vitamin D2 40824 IU once weekly for 12 weeksonce you complete RX buy otc vitamin D3 1000 IU once daily [id number] Nadeem Vivas MD [facility] [address] [address] 08/04/2023 10:51:18 08/04/2023 12:16:32 Chronic obstructive pulmonary disease 46443969 J44.9 Secondary to above, PFT MVI808%, FVC 70%, FEV1/FVC 74%, DLCO 41%, BD+(2022) Fibrosis of lung 0565982 [address] chest IMPRESSION : 04/2018 1. Severe emphysema. 2. Debris in the basilar and bilateral lower lobe airways could relate to retained or aspirated debris. Clinical follow-up recommende d. 3. 4 mm nodule in the lingula. Given the history of severe emphysema and smoking, 12 month follow-up CT chest without contrast recommende d. 4. Anterior subpleural reticulati ons. With a background of emphysema, concerning for early emphysema related fibrosis.5 . The history states the patient has left lower lobe opacities. However, no recent chest imaging comparison is available. If this can be made available, comparison can be made and addendum provided to this report.Aura ient was advised to take Mucinex BID Pulmonary Mycobacterium avium complex infection 421016173 A31.0 At this point we will not start treatment, Bronchscop y showed no infection Multiple n odules of lung 977225164 R91.8 4mm in the ligula, will repeat CT chest in 10/2018 IMPRESSION : ===== 11/2018 1. There are diffuse groundglas s opacificat ions are present within both the right and left lung increased as compared to prior study. Coarsening of the interstiti um is present greatest in the right upper lobe. These findings are increased as compared back to prior study may relate to underlying infectious process. Sputum culture may be of use.2. Similar-ap pearing pulmonary nodule in the lingula. Stable nodule right lung apex.3. Follow-up examinatio n is recommende d in April 2019. 04/23/2019 IMPRESSION :1. 3 mm nodule right upper lobe is stable compared with 04/24/2018. 4 mm nodulein the lingula is stable compared with 04/24/2018. No new or progressiv e nodules identified . Given the stability for one year, no specific follow-up necessary. 2. Moderate emphysema with early fibrosis.3 . Mild groundglas s opacities in the lower lobes are stable. Probablypo stinflamma tory, but indetermin ate. As a precaution , annual follow-up CTchest without contrast recommende d for this. CT 06/2020IMPR ESSION: ===== 1. The pulmonary nodule in the right upper lobe on image #43 is stable ascompared back to April 2018. The left lingular nodule on image #160 [email or web address] pared the prior study. This is greater than 2 years of stability. 2. Scattered groundglas s opacificat ions are present within the right and leftlung slightly increased in the right lower lung as compared back to 2019.3. Significan t emphysemat ous changes are present within the lungs.4. Follow-up examinatio n of the chest is recommende d in one year. Atelectasi sis now present within the lingula and left lower lung slightly increased ascompared to 2 prior examinatio ns.5. Recommend considerat ion for lung screening CT. CT chest in 06/2021IMPR ESSION: 1. 2 mm nodule anterior right upper lobe. Not definitely larger [place], but appears somewhat rounder on today's examinatio n thanprevio usly. Short-term follow-up in 3-6 months is recommende d with CT chestwitho ut contrast.2 . The 2 other small nodules previously identified are stable and require nofurther follow-up. 3. Severe emphysema. 4. Atheroscle rosis and coronary calcificat ions. Leaflet and annuluscal cification s of the aortic valve. Correlatio n for signs of aortic stenosisre commended. 5. Prior cholecyste ctomy.CT . Stable previous identified pulmonary nodules over greater than 2 years and therefore can be considered benign. No apparent new pulmonary nodules.2. New atelectasi s in the lingula. Recommend follow-up CT in 6 months for surveillan ce in order to exclude coexisting lesion.3. Stable dilation of the ascending thoracic aorta. i will repeat CT . Stable pulmonary nodules compatible with benign etiology.2 . Stable focal area of consolidat mya atelectasi s in the lingula.3. Chronic lung disease with grossly no significan t interval change. This includes chronic interstiti al disease, chronic patchy groundglas s opacities, emphysema and chronic bronchitis .4. Atheroscle rotic disease. LDCT 06/14 showed 0.5 cm new nodule MINI LDCT will be done in 12/15 Nonspecifi c tuberculin test reaction 064964141 R76.11 secondary to SOLITARIO Pulmonary emphysema 8743 3001 J43.9 Secondary to nicotine dependence , she will continue on Incruse ellipta on regular basis and albuterol on as needed basis. Dyspnea on exertion 6084 5006 R06.09 Multifacto rial, repeat PFTs, PFTs FEV1 74%, FVC 66%, FEV1/FVC 90%, TLC 107%, DLCO 44%, BD+(2020) Posterior rhinorrhea 758 14512 R09.82 Continue saline nasal spray Chronic cough 35415103 R 05.3 Multifacto rial Nicotine dependence 5629 4008 F17.200 40PYH, counseled to quit for 5 minutes, she has quit Wellbutrin Air trapping 83576914 J9 8.8 RV 202% Chest over-expanded 2496 74808 Q67.8 TLC 131% Allergic rhinitis 106232 04 J30.9 Continue Singulair [id number] Gui Zelaya MD [facility] [address] [place] [address] 10/06/2023 09:52:49 10/09/2023 09:40:44 Chronic obstructive pulmonary disease 51626358 J44.9 stop smokingsaw pulmonolog istGot CT of lungs in 2022 Essential hypertension 57812957 I10 BP Goal: Less than 150/90BP Controlled : yes; per the JNC8 guidelines in the absence of renal disease and DMHealthy Weight: 5'1= 100-131 lbsDiscuss ed: Low sodium balanced diet, moderate exercise at least 3-4 times per week for an average of 40 minutesNex t Visit: 3month(s) Hyperlipidemia 73176423 E78.2 Life style modificati ons (LSM)06/05ho 213.6trig 108HDL 57.4LDL 132 02/05/2022 cho 225trig 75HDL 74LDL 138 02/10/2023 cho 185trig 173HDL 73LDL 108Avoid all breads, potatoes, cereal, pasta, rice, margarine, refined sugars, milk yogurt, ice cream, juices, soda (including diet), beer, and manmade or manufactur ed desserts. Enjoy fish, chicken (no skin), pork, butter, vegetables , beans, nuts, whole eggs, cheese (low fat or skim), cream in your coffee. Hypothyroidism 93436102 E03.9 Dx 06/27/2012on Euthyrox 100 mcg tablet once daily02/10 TSH 1.070, T4 1.2102023 TSH 0.435 med adjustment by ENDO done+ thyroid antibodies Autoimmune thyroiditis 85425566 E06.3 05/22/2022 TSH 0.030T4 1.84 02/10/2023 TSH 1.070, T4 1.21contin ue Euthyrox 112mcg daily gets Rx from [facility] Osteoarthritis 190082087 M15.4 Range of motion exercises Tylenol arthritis as needed Lumbosacra l radiculopathy 5712660 M54.17 Patient is a housekeepe rHas history of degenerati on of lumbar interverte bral discsVoice s pain has gotten better than it was with PT and oral medication s but has not completely subsided. Voices pain does get to a 6/10 when it is bad.Has started walking more to help. Does not want more PT as she can do the exercises herself at home.Will increase gabapentin to 800mg TID 022 LSS xray shows DDD 022 MRI of LSS shows1. Multilevel degenerati ve changes of the lumbar spine as described level by level above. 2. Severe left neural foraminal stenosis at L5-S1. 3. Moderate disc bulge at L5-S1 with a small superimpos ed left paracentra l/subartic ular disc protrusion in close proximity to the traversing left S1 nerve root. Chronic sinusitis 012793 00 J32.9 Has been using nasal spraystop smoking Degenerati on of lumbar intervertebral disc 49330220 M51.36 10/19/2021 LSS xray shows DDDPatient will go on Gabapentin 800mg tid,2021 MRI LS spine shows multilevel DDD1. Multilevel degenerati ve changes of the lumbar spine as described level by level above. 2. Severe left neural foraminal stenosis at L5-S1. 3. Moderate disc bulge at L5-S1 with a small superimpos ed left paracentra l/subartic ular disc protrusion in close proximity to the traversing left S1 nerve root.Patie nt has appointmen t with pain management 02/2022 Moderate r ecurrent major depression 60876600 F33.1 PHQ2-9 stablecont inue Rx Osteopenia with high fracture risk [id number] 07980 M85.80 Patient taking OTC Calcium and Vitamin D Vitamin D deficiency 347 68961 E55.9 Vitamin D 9Start Rx Vitamin D2 95290 IU once weekly for 12 weeksonce you complete RX buy otc vitamin D3 1000 IU once daily Tobacco user 489210098 Z 72.0 still smokes 1/2 PPD stop smoking pt discontinu ed Bupropion by tapering down as advisedRep orts patches irritated skin Impacted c erumen in left ear 8399894854 700509 H61.22 [id number] Nadeem Vivas MD [facility] [address] [place] [address] 12/08/2023 09:46:43 12/08/2023 14:13:15 Chronic obstructive pulmonary disease 38325244 J44.9 Secondary to above, She's on Incruse ellipta and ventolin ,PFT JLQ922%, FVC 70%, FEV1/FVC 74%, DLCO 41%, BD+(2022) Fibrosis of lung 4578758 [address] chest IMPRESSION : 04/2018 1. Severe emphysema. 2. Debris in the basilar and bilateral lower lobe airways could relate to retained or aspirated debris. Clinical follow-up recommende d.3. 4 mm nodule in the lingula. Given the history of severe emphysema and smoking, 12 month follow-up CT chest without contrast recommende d.4. Anterior subpleural reticulati ons. With a background of emphysema, concerning for early emphysema related fibrosis.5 . The history states the patient has left lower lobe opacities. However, no recent chest imaging comparison is available. If this can be made available, comparison can be made and addendum provided to this report.Pat ient was advised to take Mucinex BID Pulmonary Mycobacterium avium complex infection 728467919 A31.0 At this point we will not start treatment, Bronchscop y showed no infection Multiple n odules of lung 872814280 R91.8 4mm in the ligula, will repeat CT chest in 10/2018 IMPRESSION : ===== 11/2018 1. There are diffuse groundglas s opacificat ions are present within both the right and left lung increased as compared to prior study. Coarsening of the interstiti um is present greatest in the right upper lobe. These findings are increased as compared back to prior study may relate to underlying infectious process. Sputum culture may be of use.2. Similar-ap pearing pulmonary nodule in the lingula. Stable nodule right lung apex.3. Follow-up marina rai is recommende d in April 2019. 04/23/2019 IMPRESSION :1. 3 mm nodule right upper lobe is stable compared with 04/24/2018. 4 mm nodulein the lingula is stable compared with 04/24/2018. No new or progressiv e nodules identified . Given the stability for one year, no specific follow-up necessary. 2. Moderate emphysema with early fibrosis.3 . Mild groundglas s opacities in the lower lobes are stable. Probablypo stinflamma tory, but indetermin ate. As a precaution , annual follow-up CTchest without contrast recommende d for this. CT 06/2020IMPR ESSION: ===== 1. The pulmonary nodule in the right upper lobe on image #43 is stable ascompared back to April 2018. The left lingular nodule on image #160 [email or web address] pared the prior study. This is greater than 2 years of stability. 2. Scattered groundglas s opacificat ions are present within the right and leftlung slightly increased in the right lower lung as compared back to 2019.3. Significan t emphysemat ous changes are present within the lungs.4. Follow-up examinatio n of the chest is recommende d in one year. Atelectasi sis now present within the lingula and left lower lung slightly increased ascompared to 2 prior examinatio ns.5. Recommend considerat ion for lung screening CT. CT chest in 06/2021IMPR ESSION: 1. 2 mm nodule anterior right upper lobe. Not definitely larger [place], but appears somewhat rounder on today's examinatio n thanprevio usly. Short-term follow-up in 3-6 months is recommende d with CT chestwitho ut contrast.2 . The 2 other small nodules previously identified are stable and require nofurther follow-up. 3. Severe emphysema. 4. Atheroscle rosis and coronary calcificat ions. Leaflet and annuluscal cification s of the aortic valve. Correlatio n for signs of aortic stenosisre commended. 5. Prior cholecyste ctomy.CT . Stable previous identified pulmonary nodules over greater than 2 years and therefore can be considered benign. No apparent new pulmonary nodules.2. New atelectasi s in the lingula. Recommend follow-up CT in 6 months for surveillan ce in order to exclude coexisting lesion.3. Stable dilation of the ascending thoracic aorta. i will repeat CT . Stable pulmonary nodules compatible with benign etiology.2 . Stable focal area of consolidat mya atelectasi s in the lingula.3. Chronic lung disease with grossly no significan t interval change. This includes chronic interstiti al disease, chronic patchy groundglas s opacities, emphysema and chronic bronchitis .4. Atheroscle rotic disease. LDCT 06/14 showed 0.5 cm new nodule MINI LDCT will be done in 12/15 Nonspecifi c tuberculin test reaction 667898244 R76.11 secondary to SOLITARIO Pulmonary emphysema 8743 3001 J43.9 Secondary to nicotine dependence , she will continue on Incruse ellipta on regular basis and albuterol on as needed basis. Dyspnea on exertion 6084 5006 R06.09 Multifacto rial, repeat PFTs, PFTs FEV1 74%, FVC 66%, FEV1/FVC 90%, TLC 107%, DLCO 44%, BD+(2020) Posterior rhinorrhea 758 60696 R09.82 Continue saline nasal spray Chronic cough 22651053 R 05.3 Multifacto rial Nicotine dependence 5629 4008 F17.200 40PYH, counseled to quit for 5 minutes, she has quit Wellbutrin Air trapping 89386563 J9 8.8 RV 202% Chest over-expanded 2496 39528 Q67.8 TLC 131% Allergic rhinitis 704532 04 J30.9 Continue Singulair [id number] Gui Zelaya MD [facility] [address] [place] [address] 12/29/2023 09:55:00 12/30/2023 13:55:54 Essential hypertension 49280455 I10 BP Goal: Less than 150/90BP Controlled : yes; per the JNC8 guidelines in the absence of renal disease and DMHealthy Weight: 5'1= 100-131 lbsDiscuss ed: Low sodium balanced diet, moderate exercise at least 3-4 times per week for an average of 40 minutesNex t Visit: 3month(s) [id number] Gui Zelaya MD [facility] [address] [place] [address] 02/09/2024 14:18:50 02/13/2024 16:11:05 Chronic obstructive pulmonary disease 91445445 J44.9 stop sm[place]aw pulmonolog istGot CT of lungs in 2022 Hypothyroidism 97508451 E03.9 Dx 06/27/2012on Euthyrox 100 mcg tablet once daily02/10 TSH 1.070, T4 1.2102023 TSH 0.435 med adjustment by ENDO done+ thyroid antibodies 12/29/2023 TSH 1.380 Essential hypertension 24080668 I10 BP Goal: Less than 150/90BP Controlled : yes; per the JNC8 guidelines in the absence of renal disease and DMHealthy Weight: 5'1= 100-131 lbsDiscuss ed: Low sodium balanced diet, moderate exercise at least 3-4 times per week for an average of 40 minutesNex t Visit: 3month(s) Hyperlipidemia 14541024 E78.2 Life style modificati ons (LSM)06/05ho 213.6trig 108HDL 57.4LDL 132 02/05/2022 cho 225trig 75HDL 74LDL 138 02/10/2023 cho 185trig 173HDL 73LDL 108 12/29/2023 cho 160trig 54HDL 70LDL 85Avoid all breads, potatoes, cereal, pasta, rice, margarine, refined sugars, milk yogurt, ice cream, juices, soda (including diet), beer, and manmade or manufactur ed desserts. Enjoy fish, chicken (no skin), pork, butter, vegetables , beans, nuts, whole eggs, cheese (low fat or skim), cream in your coffee. Autoimmune thyroiditis 89921254 E06.3 05/22/2022 TSH 0.030T4 1.84 02/10/2023 TSH 1.070, T4 1.2112023 TSH 1.380conti nue Euthyrox 112mcg daily gets Rx from ENDO Osteoarthritis 225298339 M15.4 Range of motion exercises Tylenol arthritis as needed Lumbosacra l radiculopathy 7435006 M54.17 Patient is a housekeepe rHas history of degenerati on of lumbar interverte bral discsVoice s pain has gotten better than it was with PT and oral medication s but has not completely subsided. Voices pain does get to a 6/10 when it is bad.Has started walking more to help. Does not want more PT as she can do the exercises herself at home.Will increase gabapentin to 800mg TID LSS xray shows DDD MRI of LSS shows1. Multilevel degenerati ve changes of the lumbar spine as described level by level above. 2. Severe left neural foraminal stenosis at L5-S1. 3. Moderate disc bulge at L5-S1 with a small superimpos ed left paracentra l/subartic ular disc protrusion in close proximity to the traversing left S1 nerve root. Chronic sinusitis 404883 00 J32.9 Has been using nasal spraystop smoking Degenerati on of lumbar intervertebral disc 29304298 M51.362 10/19/2021 LSS xray shows DDDPatient will go on Gabapentin 800mg tid,2021 MRI LS spine shows multilevel DDD1. Multilevel degenerati ve changes of the lumbar spine as described level by level above. 2. Severe left neural foraminal stenosis at L5-S1. 3. Moderate disc bulge at L5-S1 with a small superimpos ed left paracentra l/subartic ular disc protrusion in close proximity to the traversing left S1 nerve root.Kacie nt has appointmen t with pain management 02/2022 Moderate r ecurrent major depression 64334909 F33.1 PHQ2-9 0 stablecont inue Rx Osteopenia with high fracture risk 1630890045 19190 M85.80 Patient taking OTC Calcium and Vitamin D Vitamin D deficiency 347 87970 E55.9 03/10/2023 Vitamin D 9Start Rx Vitamin D2 01250 IU once weekly for 12 weeksonce you complete RX buy otc vitamin D3 1000 IU once daily Tobacco user 808302599 Z 72.0 still smokes 1/2 PPD stop smoking pt discontinu ed Bupropion by tapering down as advisedRep orts patches irritated skin Administra tion of influenza vaccine 96912978 Z23 History of polyp of colon 106802381 Z86.0100 Impacted c erumen of bilateral ears 3710187338 563763 H61.23 Screening for malignant neoplasm of breast 645221733 Z12.31 [id number] Nadeem Vivas MD [facility] [address] [place] [address] 03/08/2024 09:54:44 03/08/2024 12:05:48 Chronic obstructive pulmonary disease 99151948 J44.9 Secondary to above, She's on Incruse ellipta and ventolin ,PFT LNU716%, FVC 70%, FEV1/FVC 74%, DLCO 41%, BD+(2022) Fibrosis of lung 9748910 [address] chest IMPRESSION : 04/2018 1. Severe emphysema. 2. Debris in the basilar and bilateral lower lobe airways could relate to retained or aspirated debris. Clinical follow-up recommende d.3. 4 mm nodule in the lingula. Given the history of severe emphysema and smoking, 12 month follow-up CT chest without contrast recommende d.4. Anterior subpleural reticulati ons. With a background of emphysema, concerning for early emphysema related fibrosis.5 . The history states the patient has left lower lobe opacities. However, no recent chest imaging comparison is available. If this can be made available, comparison can be made and addendum provided to this report.Pat ient was advised to take Mucinex BID Pulmonary Mycobacterium avium complex infection 373614257 A31.0 At this point we will not start treatment, Bronchscop y showed no infection Multiple n odules of lung 935663728 R91.8 4mm in the ligula, will repeat CT chest in 10/2018 IMPRESSION : ===== 11/2018 1. There are diffuse groundglas s opacificat ions are present within both the right and left lung increased as compared to prior study. Coarsening of the interstiti um is present greatest in the right upper lobe. These findings are increased as compared back to prior study may relate to underlying infectious process. Sputum culture may be of use.2. Similar-ap pearing pulmonary nodule in the lingula. Stable nodule right lung apex.3. Follow-up examinatio n is recommende d in April 2019. 04/23/2019 IMPRESSION :1. 3 mm nodule right upper lobe is stable compared with 04/24/2018. 4 mm nodulein the lingula is stable compared with 04/24/2018. No new or progressiv e nodules identified . Given the stability for one year, no specific follow-up necessary. 2. Moderate emphysema with early fibrosis.3 . Mild groundglas s opacities in the lower lobes are stable. Probablypo stinflamma tory, but indetermin ate. As a precaution , annual follow-up CTchest without contrast recommende d for this. CT 06/2020IMPR ESSION: ===== 1. The pulmonary nodule in the right upper lobe on image #43 is stable ascompared back to April 2018. The left lingular nodule on image #160 stablescom pared the prior study. This is greater than 2 years of stability. 2. Scattered groundglas s opacificat ions are present within the right and leftlung slightly increased in the right lower lung as compared back to 2019.3. Significan t emphysemat ous changes are present within the lungs.4. Follow-up examinatio n of the chest is recommende d in one year. Atelectasi sis now present within the lingula and left lower lung slightly increased ascompared to 2 prior examinatio ns.5. Recommend considerat ion for lung screening CT. CT chest in 06/2021IMPR ESSION: 1. 2 mm nodule anterior right upper lobe. Not definitely larger than pri[place] nation, but appears somewhat rounder on today's examinatio n thanprevio usly. Short-term follow-up in 3-6 months is recommende d with CT chestwitho ut contrast.2 . The 2 other small nodules previously identified are stable and require nofurther follow-up. 3. Severe emphysema. 4. Atheroscle rosis and coronary calcificat ions. Leaflet and annuluscal cification s of the aortic valve. Correlatio n for signs of aortic stenosisre commended. 5. Prior cholecyste ctomy.CT . Stable previous identified pulmonary nodules over greater than 2 years and therefore can be considered benign. No apparent new pulmonary nodules.2. New atelectasi s in the lingula. Recommend follow-up CT in 6 months for surveillan ce in order to exclude coexisting lesion.3. Stable dilation of the ascending thoracic aorta. i will repeat CT . Stable pulmonary nodules compatible with benign etiology.2 . Stable focal area of consolidat mya atelectasi s in the lingula.3. Chronic lung disease with grossly no significan t interval change. This includes chronic interstiti al disease, chronic patchy groundglas s opacities, emphysema and chronic bronchitis .4. Atheroscle rotic disease. LDCT 06/14 showed 0.5 cm new nodule MINI LDCT DONE , result is unavilable Nonspecifi c tuberculin test reaction 404767532 R76.11 secondary to SOLITARIO Pulmonary emphysema 8743 3001 J43.9 Secondary to nicotine dependence , she will continue on Incruse ellipta on regular basis and albuterol on as needed basis. Dyspnea on exertion 6084 5006 R06.09 Multifacto rial, repeat PFTs, PFTs FEV1 74%, FVC 66%, FEV1/FVC 90%, TLC 107%, DLCO 44%, BD+(2020) Posterior rhinorrhea 758 60123 R09.82 Continue saline nasal spray Chronic cough 58588322 R 05.3 Multifacto rial Nicotine dependence 5629 4008 F17.200 40PYH, counseled to quit for 5 minutes, she has quit Wellbutrin Air trapping 58763744 J9 8.8 RV 202% Chest over-expanded 2496 36828 Q67.8 TLC 131% Allergic rhinitis 199038 04 J30.9 Continue Singulair [id number] Vicente Ivan MD [facility] [address], [place] [address] 06/28/2024 10:30:08 06/29/2024 13:33:19 Chronic obstructive pulmonary disease 54292856 J44.9 following with pulmstill smokingfin eden clubbing noted Essential hypertension 49517627 I10 controlled refills todaydue for labs Hyperlipidemia 10189078 E78.2 refills Administra tion of pneumococcal vaccine 64382197 Z23 Moderate r ecurrent major depression 96699362 F33.1 Administra tion of diphtheria, pertussis, and tetanus vaccine 938345190 Z23 Finger clubbing 97678315 R68.3 advised quitting smokingfol lowing with pulm Smoker 58845030 F17.698 [id number] Gui Zelaya MD [facility] [address] [place] [id number] 08/30/2024 10:51:23 09/02/2024 10:43:17 Lumbago with sciatica 443677557 M54.40 65393082 Body mass index less than 20 399882375 Z68.1 BMI 19.9 Pulmonary emphysema 8743 3001 J43.9 stop smoking [id number] Shashi Nguyen MD [facility] [address] [place] [address] 09/20/2024 11:29:40 09/22/2024 10:32:58 Gynecologic examination 26903026 Z01.419 64yo postmenopa usal F presents for annual WWE.-clini shan breast & pelvic examinatio ns completed today, vulvar lesion noted-64yo F presents for annual WWE. She has no concerns today. Followed with yearly Pap tests due to smoking history. Last pap 03/07/2021 , negative. Last mammogram 03/15/2024 , benign. Patient had colonoscop y 05/17/2024 -needs repeat in 5 years had colon polyp, diverticul osis and hemorrhoid s-referral for screening mammogram issued for routine breast cancer screening- Educated osteoporos is prevention including calcium rich diet, weight bearing exercise. Will start supplement .-RTC in 1yr Screening for malignant neoplasm of breast 004536371 Z12.31 Last mammogram Osteopenia 206550171 M85 .80 Last DEXA 10/09/2023 with osteopenia . alendronat e weekly was d'cd by Endo 06/2024. Cont Calcium/Vi t D supplement . Smoker 50756992 F17.200 1/2 ppd. Complete cessation advised. Follows with pulm Lesion of vulva 24883095 6 N90.89 2mm hyperkerat otic white lesion on L labia minora near clitoris. Asymptomat ic. Noted for years. Pt was told genital wart. Advised biopsy but pt declined at this time. Will monitor. 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 Severe emphysema. 2. Debris in the basilar and bilateral lower lobe airways could relate to retained or aspirated debris. Clinical follow-up recommende d.3. 4 mm nodule in the lingula. Given the history of severe emphysema and smoking, 12 month follow-up CT chest without contrast recommende d.4. Anterior subpleural reticulati ons. With a background of emphysema, concerning for early emphysema related fibrosis.5 . The history states the patient has left lower lobe opacities. However, no recent chest imaging comparison is available. 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 There are diffuse groundglas s opacificat ions are present within both the right and left lung increased as compared to prior study. Coarsening of the interstiti um is present greatest in the right upper lobe. These findings are increased as compared back to prior study may relate to underlying infectious process. Sputum culture may be of use.2. Similar-ap pearing pulmonary nodule in the lingula. Stable nodule right lung apex.3. Follow-up examinatio n is recommende d in April 2019. 04/23/2019 IMPRESSION :1. 3 mm nodule right upper lobe is stable compared with 04/24/2018. 4 mm nodulein the lingula is stable compared with 04/24/2018. No new or progressiv e nodules identified . Given the stability for one year, no specific follow-up necessary. 2. Moderate emphysema with early fibrosis.3 . Mild groundglas s opacities in the lower lobes are stable. Probablypo stinflamma tory, but indetermin ate. As a precaution , annual follow-up CTchest without contrast recommende d for this. CT 06/2020IMPR ESSION: ===== 1. The pulmonary nodule in the right upper lobe on image #43 is stable ascompared back to April 2018. The left lingular nodule on image #160 [email or web address] pared the prior study. This is greater than 2 years of stability. 2. Scattered groundglas s opacificat ions are present within the right and leftlung slightly increased in the right lower lung as compared back to 2019.3. Significan t emphysemat ous changes are present within the lungs.4. Follow-up examinatio n of the chest is recommende d in one year. Atelectasi sis now present within the lingula and left lower lung slightly increased ascompared to 2 prior examinatio ns.5. Recommend considerat ion for lung screening CT. CT chest in 06/2021IMPR ESSION: 1. 2 mm nodule anterior right upper lobe. Not definitely larger than pri[place] nation, but appears somewhat rounder on today's examinatio n thanprevio usly. Short-term follow-up in 3-6 months is recommende d with CT chestwitho ut contrast.2 . The 2 other small nodules previously identified are stable and require nofurther follow-up. 3. Severe emphysema. 4. Atheroscle rosis and coronary calcificat ions. Leaflet and annuluscal cification s of the aortic valve. Correlatio n for signs of aortic stenosisre commended. 5. Prior cholecyste ctomy.CT . Stable previous identified pulmonary nodules over greater than 2 years and therefore can be considered benign. No apparent new pulmonary nodules.2. New atelectasi s in the lingula. Recommend follow-up CT in 6 months for surveillan ce in order to exclude coexisting lesion.3. Stable dilation of the ascending thoracic aorta. i will repeat CT . Stable pulmonary nodules compatible with benign etiology.2 . Stable focal area of consolidat mya atelectasi s in the lingula.3. Chronic lung disease with grossly no significan t interval change. This includes chronic interstiti al disease, chronic patchy groundglas s opacities, emphysema and chronic bronchitis .4. Atheroscle rotic disease. LDCT 06/14 showed 0.5 cm new nodule MINI LDCT DONE , 03/16, stable nodules , independen tly reviewed by me , will repeat LDCT 03/17 Nonspecifi c tuberculin test reaction 263576132 R76.11 secondary to SOLITARIO Dyspnea on exertion 6084 5006 R06.09 Multifacto rial, repeat PFTs, PFTs FEV1 74%, FVC 66%, FEV1/FVC 90%, TLC 107%, DLCO 44%, BD+(2020) Posterior rhinorrhea 758 78121 R09.82 Continue saline nasal spray Chronic cough 50787138 R 05.3 Multifacto rial Air trapping 30086425 J9 8.8 RV 202% Chest over-expanded 2496 04983 Q67.8 TLC 131% Simple chr onic bronchitis 65751708 J41.0 2691 Secondary to above, She's on Incruse ellipta and ventolin ,PFT XHC941%, FVC 70%, FEV1/FVC 74%, DLCO 41%, BD+(2022), I will repeat PFTs Centriacin ar emphysema 55639455 J43.2 2777 Secondary to nicotine dependence , she will continue on Incruse ellipta on regular basis and albuterol on as needed basis. Tobacco de pendence caused by cigarettes 4528129857 1562032 F17.076 9356342 40PYH, counseled to quit for 5 minutes, she has quit Wellbutrin Allergic r hinitis caused by pollen 13441610 J30.1 85079860 Continue Singulair [id number] Gui Zelaya MD [facility] [address] [place] [address] 10/04/2024 10:25:04 10/06/2024 14:42:56 Essential hypertension 11843960 I10 BP Goal: Less than 140/90BP Controlled : yes; per the JNC8 guidelines in the absence of renal disease and DMHealthy Weight: 5'1= 100-131 lbsDiscuss ed: Low sodium balanced diet, moderate exercise at least 3-4 times per week for an average of 40 minutesNex t Visit: 3month(s) Chronic ob structive pulmonary disease 33132958 J44.9 stop smokingsaw pulmonolog istGot CT of lungs in 2022 Hypothyroidism 43616665 E03.9 Dx 06/27/2012on Euthyrox 100 mcg tablet once daily02/10 TSH 1.070, T4 1.2102023 TSH 0.435 med adjustment by ENDO done+ thyroid antibodies 12/29/2023 TSH 1.380curre ntly taking Levothyrox ine 100mcg daily has refills per ENDO Moderate r ecurrent major depression 18790104 F33.1 PHQ2-9 stablecont inue Rx Autoimmune thyroiditis 13893915 E06.3 05/22/2022 TSH 0.030T4 1.84 02/10/2023 TSH 1.070, T4 1.2112023 TSH 1.380conti nue Euthyrox 112mcg daily gets Rx from ENDO Osteoarthritis 051908718 M15.4 Range of motion exercises Tylenol arthritis as needed Lumbosacra l radiculopathy 4204608 M54.17 Patient is a housekeepe rHas history of degenerati on of lumbar interverte bral discsVoice s pain has gotten better than it was with PT and oral medication s but has not completely subsided. Voices pain does get to a 6/10 when it is bad.Has started walking more to help. Does not want more PT as she can do the exercises herself at home.Will increase gabapentin to 800mg TID LSS xray shows DDD MRI of LSS shows1. Multilevel degenerati ve changes of the lumbar spine as described level by level above. 2. Severe left neural foraminal stenosis at L5-S1. 3. Moderate disc bulge at L5-S1 with a small superimpos ed left paracentra l/subartic ular disc protrusion in close proximity to the traversing left S1 nerve root. Chronic sinusitis 850680 00 J32.9 Has been using nasal spraystop smoking Degenerati on of lumbar intervertebral disc 68837718 M51.362 10/19/2021 LSS xray shows DDDPatient will go on Gabapentin 800mg tid,2021 MRI LS spine shows multilevel DDD1. Multilevel degenerati ve changes of the lumbar spine as described level by level above. 2. Severe left neural foraminal stenosis at L5-S1. 3. Moderate disc bulge at L5-S1 with a small superimpos ed left paracentra l/subartic ular disc protrusion in close proximity to the traversing left S1 nerve root.Patie nt has appointmen t with pain management 02/2022 Osteopenia with high fracture risk 9425033706 17000 M85.80 Patient taking OTC Calcium and Vitamin DOn fosamax holiday since 04/14/2024 Vitamin D deficiency 347 84902 E55.9 09/20/2024 Vitamin D 43.2022 Vitamin D 9she is taking otc vitamin D3 1000 IU once daily Tobacco user 037937191 Z 72.0 still smokes 1/2 PPD stop smoking pt discontinu ed Bupropion by tapering down as advisedRep orts patches irritated skin History of polyp of colon 844575870 Z86.0100 tubular adenoma per colonoscop y 04/2024 needs repeat in 3-5 year Mixed hyperlipidemia 267 417557 E78.2 13796 Life style modificati ons (LSM)06/05ho 213.6trig 108HDL 57.4LDL 132 02/05/2022 cho 225trig 75HDL 74LDL 138 02/10/2023 cho 185trig 173HDL 73LDL 108 12/29/2023 cho 160trig 54HDL 70LDL 85Avoid all breads, potatoes, cereal, pasta, rice, margarine, refined sugars, milk yogurt, ice cream, juices, soda (including diet), beer, and manmade or manufactur ed desserts. Enjoy fish, chicken (no skin), pork, butter, vegetables , beans, nuts, whole eggs, cheese (low fat or skim), cream in your coffee. Depression screening 171 733460 Z13.31 367775 negative [id number] Gui Zelaya MD [facility] [address], [place] [address] 12/06/2024 12:16:51 12/07/2024 11:47:42 Right upper quadrant pain 073921629 R10.11 056653 64 y/o WF c/o RUQ abd pain worse with moving. However pain improves if she lays on her right side. Has been constipate d. Has missed work since 12/02. Needs a note for work. The patient voices she has been taking stool softener now having loose stools. Denies any heavy lifting or injury. Denies any radiation. No associatio n with foods.. Patient has history of cholecyste ctomy since 2011. Requires i nfluenza virus vaccination 785044161 Z23 889381 [id number] Gui Zelaya MD [facility] [address] [place] [address] 01/03/2025 11:32:25 01/04/2025 13:55:07 Hypothyroidism 58019645 E03.9 Dx 06/27/2012on Euthyrox 100 mcg tablet once daily02/10 TSH 1.070, T4 1.2102023 TSH 0.435 med adjustment by ENDO done+ thyroid antibodies 12/29/2023 TSH 1.380curre ntly taking Levothyrox ine 100mcg daily has refills per ENDO Essential hypertension 70274691 I10 BP Goal: Less than 140/90BP Controlled : yes; per the JNC8 guidelines in the absence of renal disease and DMHealthy Weight: 5'1= 100-131 lbsDiscuss ed: Low sodium balanced diet, moderate exercise at least 3-4 times per week for an average of 40 minutesNex t Visit: 3month(s) Chronic ob structive pulmonary disease 62730281 J44.9 stop smokingsaw pulmonolog istGot CT of lungs in 2022 Mixed hyperlipidemia 267 237753 E78.2 68751 Life style modificati ons (LSM)06/05ho 213.6trig 108HDL 57.4LDL 132 02/05/2022 cho 225trig 75HDL 74LDL 138 02/10/2023 cho 185trig 173HDL 73LDL 108 12/29/2023 cho 160trig 54HDL 70LDL 85Avoid all breads, potatoes, cereal, pasta, rice, margarine, refined sugars, milk yogurt, ice cream, juices, soda (including diet), beer, and manmade or manufactur ed desserts. Enjoy fish, chicken (no skin), pork, butter, vegetables , beans, nuts, whole eggs, cheese (low fat or skim), cream in your coffee. Moderate r ecurrent major depression 56029861 F33.1 PHQ2-9 stablecont inue Rx Autoimmune thyroiditis 47203027 E06.3 05/22/2022 TSH 0.030T4 1.84 02/10/2023 TSH 1.070, T4 1.2112023 TSH 1.380conti nue Euthyrox 112mcg daily gets Rx from ENDO Osteoarthritis 084194167 M15.4 Range of motion exercises Tylenol arthritis as needed Lumbosacra l radiculopathy 3203015 M54.17 Patient is a housekeepe rHas history of degenerati on of lumbar interverte bral discsVoice s pain has gotten better than it was with PT and oral medication s but has not completely subsided. Voices pain does get to a 6/10 when it is bad.Has started walking more to help. Does not want more PT as she can do the exercises herself at home.Will increase gabapentin to 800mg TID 022 LSS xray shows DDD MRI of LSS shows1. Multilevel degenerati ve changes of the lumbar spine as described level by level above. 2. Severe left neural foraminal stenosis at L5-S1. 3. Moderate disc bulge at L5-S1 with a small superimpos ed left paracentra l/subartic ular disc protrusion in close proximity to the traversing left S1 nerve root. Chronic sinusitis 149273 00 J32.9 Has been using nasal spraystop smoking Degenerati on of lumbar intervertebral disc 54813938 M51.362 10/19/2021 LSS xray shows DDDPatient will go on Gabapentin 800mg tid,2021 MRI LS spine shows multilevel DDD1. Multilevel degenerati ve changes of the lumbar spine as described level by level above. 2. Severe left neural foraminal stenosis at L5-S1. 3. Moderate disc bulge at L5-S1 with a small superimpos ed left paracentra l/subartic ular disc protrusion in close proximity to the traversing left S1 nerve root.Kacie nt has appointmen t with pain management 02/2022 Osteopenia with high fracture risk 3942972468 31006 M85.80 Patient taking OTC Calcium and Vitamin DOn fosamax holiday since 04/14/2024 Vitamin D deficiency 347 43263 E55.9 09/20/2024 Vitamin D 43.512/2022 Vitamin D 9she is taking otc vitamin D3 1000 IU once daily Tobacco user 319676090 Z 72.0 still smokes 1/2 PPD stop smoking pt discontinu ed Bupropion by tapering down as advisedRep orts patches irritated skin History of polyp of colon 287320916 Z86.0100 tubular adenoma per colonoscop y 04/2024 needs repeat in 3-5 year Depression screening 171 517895 Z13.31 396909 negative Right uppe r quadrant pain 131708685 R10.11 683441 [id number] y/o WF c/o RUQ abd pain worse with moving. However pain improves if she lays on her right side. Has been constipate d. Has missed work since 12/02. Needs a note for work. The patient voices she has been taking stool softener now having loose stools. Denies any heavy lifting or injury. Denies any radiation. No associatio n with foods.. Patient has history of cholecyste ctomy since 2011. Health Concerns Section Related Observation LastModified by Organization Detai ls LastModified Time None Recorded Concern Status LastModified by Organization Details LastModified Time None Recorded Advance Directives Directive N: Payers Insurance Date Sequence Insurance Name Policy Number Policy Jeff Covered Member ID Jeff Member ID Guarantor Name 12/06/2024 1 [facility] - DOS ON OR AFTER 20 (MEDICAID REPLACEMENT - HMO) Melly Raya [id number] Melly Raya 01/03/2025 2 [place] WHEN MEDICARE OR MEDICARE REPLACEMENT PRIMARY) Melly Raya [id number] Melly Raya 12/06/2024 1 [facility] - DOS PRIOR TO 2020 (MEDICAID REPLACEMENT - HMO) Melly Raya [id number] Melly Valderramagler 12/31/2024 [place]ARE [place]: [facility] Melly Yuer [id number] Melly Raya 01/03/2025 1 [place] Melly A Elver [id number] Melly Valderramagler 12/06/2024 2 [place] [facility]PART[facility] OF PUBLIC AID Melly Raya [id number] Melly Raya Notes Date Note Type Note Provider Name and Address Organization Details Recorded Time 025 text/ht ml Annual GYNReported by PatientHistoryFor history, patient reportsno gynecologic complaints.Genitourinary symptomsFor urinary symptoms, patient reportsno hematuriaandno incontinence. For vulva, patient reportsno genital lesion. For vagina, patient reportsnormal vaginal discharge. For menstrual cycle, (postmenopausal).Breast symptomsFor breast, patient reportsno breast pain,no breast lump, andno nipple discharge.ContraceptionFor current contraception, patient reportssatisfied with current contraception(postmenopausal).Endoc rine symptomsFor sexual complaints, patient reportsno sexual complaints,no pain during intercourse, andnormal libido. For menopausal symptoms, patient reportsno menopausal symptomsandnormal vaginal lubrication.Psychological symptomsFor psychological symptoms, patient reportsno depression,no anxiety, andno pmdd.Preventative measuresFor preventive measures, patient reportsencourage self breast examination,encourage regular exercise,encourage no tobacco use,encourage regular mammograms starting age 40,followed with yearly pap smears,needs to schedule mammogram, andup to date on colonoscopy screening (05/17/2024-needs repeat in 5 years had colon polyp, diverticulosis and hemorrhoids). 64yo F presents for annual WWE. She has no concerns today. Followed with yearly Pap tests due to smoking history. Last pap 03/07/2021, negative. Last mammogram 03/15/2024, benign. Patient had colonoscopy 05/17/2024-needs repeat in 5 years had colon polyp, diverticulosis and hemorrhoids. SHe reports Endo stopped her fosamax back in 06/2024. She had a repeat Dexa scan as he wants to see if fosamax helping per patient. Caio Garzon, [facility]- Attn: Accounting,[address] [place], [address], [place] [facility] 09/20/2024 13:39:23 025 text/ht ml ROS as noted in the HPI Patient is here for follow up. she is still smoking. She is having trouble with cough. Nadeem Vivas MD [address] [place], [address], [place] [facility] 09/27/2024 10:15:52 025 text/ht ml HyperlipidemiaReported by PatientHPIFor type of hyperlipidemia, patient reportscombined. For duration, patient reportschronicandintermittent. For compliance, patient reportsdoes not exercisebut reportscompliantandcompliant with diet. For risk factors, patient reportshypertension,smoking, andhigh lipoprotein(a) level. For prior tests, patient reportshighest cholesterol level: (225),highest ldl level: (138.3),highest triglyceride level: (75), andlowest hdl level: (74.4). For control, patient reportsimproving(3cho 185trig 73hdl 73ldl 108). For current therapy, patient reportscurrently taking:. For complications, patient reportsno coronary artery disease,no peripheral artery disease, andno cardiovascular disease. COPDReported by PatientHPI:For aggravating factors, patient reportsworse with cigarette smokingandworse in a supine position. For associated symptoms, patient reportsdyspnea during exertion,decrease in exercise capacity,fatigue,cough, anddepressionbut reportsno snoring,no excessive daytime sleepiness,no arousals from sleep,not coughing up sputum,no fever,no wheezing, andno weight loss. For onset/timing, patient reportschronic: has not changed. For severity, patient reportsmoderateanduses nebulizer/inhaler an average of 7 times/week lately. For quality, patient reportssymptoms worse during the day. For context, patient reportscigarette smoking,influenza vaccine yes, andpneumococcal vaccine yes. For alleviating factors, patient reportsrelieved with restandrelieved with bronchodilator. Hypertension F/UReported by PatientHPIFor associated symptoms, patient reportsno dizziness,no lightheadedness,no chest pain,no shortness of breath,no palpitations,no edema, andno calf pain with exertion. For lifestyle, patient reportsregular exercise,limiting/avoiding salt, andexercises 3 times/week(is using treadmill and also walking to help with leg). For medications, patient reportstaking medications as directedandno side effects from medication. Anxiety/DepressionReported by PatientHPIFor associated symptoms, patient reportssleep disturbancesbut reportsdenies homicidal ideations,no significant weight gain,no significant weight loss,no visual/auditory hallucinations,no delusions,no shortness of breath,mood good,no anxiety,no crying spells,no panic,no isolation,appetite good,energy good,no apathy, andmaintaining functionality. For severity, patient reportsdenies suicidal ideations,able to maintain relationships, anddoes not interfere with activities of daily living. For context, patient reportsno major life stressors.ROS as noted in the HPI 64-year-old female here for follow chronic medical issues. Patient did see PT for radiculopathy, voices it did help. Patient voices that the pain is better but still has pain at night, not as bad as it was before but still bothers her. Patient rates pain at 1 out of 10 on a daily basis, when pain is bad it gets up to 6 out of 10. Patient has been taking medication as directed for pain but voices it helps a little bit.Saw pulm last month and got CT. She just had follow up. She continues to smoke and is not interested in quitting at this time.She saw division sergeant. She is getting thyroid refills from ENDO. Her medication was adjusted. She had dexa scan. She stopped Fosamax. Endo advised drug holiday. Her scan shows osteopenia now.She continues to smoke. She was counseled to stop. Caio Garzon, [facility]- Attn: Accounting,[address] [place], [address], [place] [facility] 10/04/2024 13:50:55 025 text/ht ml Abdominal PainReported by PatientAbdominal PainFor quality, patient reportspain,dull,sharp, andtender. For onset/timing, patient reportsworsebut reportssuddenandwax/wane. For associated symptoms, patient reportsdiarrheaandconstipationbut reportsno fever,no chills,no blood in the urine,no heartburn, andno shortness of breath. For location, patient reportsruq. For severity, patient reportsmoderateandpain level 10/10(5-6/10 has not tried any meds). For duration, patient reportsintermittent(4 days ago). For context, patient reportshistory of thyroid disease. For modifying factors, patient reportsmoving bowels. For other, patient reportsdenies possible .ROS as noted in the HPI 64 y/o WF c/o RUQ abd pain worse with moving. However pain improves if she lays on her right side. Has been constipated. Has missed work since 12/02. Needs a note for work. The patient voices she has been taking stool softener now having loose stools. Denies any heavy lifting or injury. Denies any radiation. No association with foods.. Patient has history of cholecystectomy since 2011. Caio Garzon, [facility]- Attn: Accounting,[address] , [place], [address], [facility] 12/06/2024 13:21:19 025 text/ht ml HyperlipidemiaReported by PatientHPIFor type of hyperlipidemia, patient reportscombined. For duration, patient reportschronicandintermittent. For compliance, patient reportsdoes not exercisebut reportscompliantandcompliant with diet. For risk factors, patient reportshypertension,smoking, andhigh lipoprotein(a) level. For prior tests, patient reportshighest cholesterol level: (225),highest ldl level: (138.3),highest triglyceride level: (75), andlowest hdl level: (74.4). For control, patient reportsimproving(3cho 185trig 73hdl 73ldl 108). For current therapy, patient reportscurrently taking:. For complications, patient reportsno coronary artery disease,no peripheral artery disease, andno cardiovascular disease. COPDReported by PatientHPI:For aggravating factors, patient reportsworse with cigarette smokingandworse in a supine position. For associated symptoms, patient reportsdyspnea during exertion,decrease in exercise capacity,fatigue,cough, anddepressionbut reportsno snoring,no excessive daytime sleepiness,no arousals from sleep,not coughing up sputum,no fever,no wheezing, andno weight loss. For onset/timing, patient reportschronic: has not changed. For severity, patient reportsmoderateanduses nebulizer/inhaler an average of 7 times/week lately. For quality, patient reportssymptoms worse during the day. For context, patient reportscigarette smoking,influenza vaccine yes, andpneumococcal vaccine yes. For alleviating factors, patient reportsrelieved with restandrelieved with bronchodilator. Hypertension F/UReported by PatientHPIFor associated symptoms, patient reportsno dizziness,no lightheadedness,no chest pain,no shortness of breath,no palpitations,no edema, andno calf pain with exertion. For lifestyle, patient reportsregular exercise,limiting/avoiding salt, andexercises 3 times/week(is using treadmill and also walking to help with leg). For medications, patient reportstaking medications as directedandno side effects from medication. Anxiety/DepressionReported by PatientHPIFor associated symptoms, patient reportssleep disturbancesbut reportsdenies homicidal ideations,no significant weight gain,no significant weight loss,no visual/auditory hallucinations,no delusions,no shortness of breath,mood good,no anxiety,no crying spells,no panic,no isolation,appetite good,energy good,no apathy, andmaintaining functionality. For severity, patient reportsdenies suicidal ideations,able to maintain relationships, anddoes not interfere with activities of daily living. For context, patient reportsno major life stressors.ROS as noted in the HPI 64-year-old female here for follow chronic medical issues.Saw pulm and got CT. She just had follow up. She continues to smoke and is not interested in quitting at this time.She saw division sergeant. She is getting thyroid refills from ENDO. Her medication was adjusted. She had dexa scan. She stopped Fosamax. Endo advised drug holiday. Her scan shows osteopenia now.She continues to smoke. She was counseled to stop.Her abdominal pain has resolved. He testing was essentially normal except abd u/s showed a renal cyst-simple. Caio Garzon, [facility] Attn: Accounting,[address] [place], [address], [facility] 01/03/2025 18:06:59 OBGyn Episode Ob Episode Information Episode Created Date Number of Fetuses Patient Bloodtype Patient rh Status Prepregnancy Weight lbs Domestic Partner Domestic Partner Phone Father Name Head Of Merchandise Buying Status 01/17/20 18 1 CLOSED Fetus Data First Name Last Name Admitted to NICU Weight (g) Sex Living Outcome Pediatric Complications Fetus ID Race Codes Race Delivery Type F [id number] Vaginal Chintan Calculation Initial Chintan Date Initial Exam Date Initial Exam Provider Initial Ultrasound Date Last Menstrual Period Date Ultra Sound Weeks Gestation 0 Eighteen To Twenty Week Chintan Update Ultra Sound Date Fundal Height At Umbil Quickening Date Ultra Sound Latest Weeks Gestation Final Chintan Confirmed By Final Chintan Confirmed Date Final Chintan Date Ultra Sound Latest Days Gestation 0 0 Menstrual History Last Menstrual Date Menses Monthly On Bcp Conception Prior Menses Frequency Hcg Plus Date Menarche Onset Age Delivery Information Delivery Date Delivery Type Labor Anesthesia Weeks Gestation Incision Type Labor Labor Length Hrs Delivered By Post Complications Tubal Sterilization Discharge Date Comments 6 Discharge Information Feeding Method Contraceptive Method Maternal HG B and HCT Levels Ob Episode Information Episode Created Date Number of Fetuses Patient Bloodtype Patient rh Status Prepregnancy Weight lbs Domestic Partner Domestic Partner Phone Father Name Head Of Merchandise Buying Status 01/17/20 18 1 CLOSED Fetus Data First Name Last Name Admitted to NICU Weight (g) Sex Living Outcome Pediatric Complications Fetus ID Race Codes Race Delivery Type M [id number] Vaginal Chintan Calculation Initial Chintan Date Initial Exam Date Initial Exam Provider Initial Ultrasound Date Last Menstrual Period Date Ultra Sound Weeks Gestation 0 Eighteen To Twenty Week Chintan Update Ultra Sound Date Fundal Height At Umbil Quickening Date Ultra Sound Latest Weeks Gestation Final Chintan Confirmed By Final Chintan Confirmed Date Final Chintan Date Ultra Sound Latest Days Gestation 0 0 Menstrual History Last Menstrual Date Menses Monthly On Bcp Conception Prior Menses Frequency Hcg Plus Date Menarche Onset Age Delivery Information Delivery Date Delivery Type Labor Anesthesia Weeks Gestation Incision Type Labor Labor Length Hrs Delivered By Post Complications Tubal Sterilization Discharge Date Comments 6 Discharge Information Feeding Method Contraceptive Method Maternal HG B and HCT Levels Ob Episode Information Episode Created Date Number of Fetuses Patient Bloodtype Patient rh Status Prepregnancy Weight lbs Domestic Partner Domestic Partner Phone Father Name Head Of Merchand[employer] Buying Status 01/17/20 18 1 CLOSED Fetus Data First Name Last Name Admitted to NICU Weight (g) Sex Living Outcome Pediatric Complications Fetus ID Race Codes Race Delivery Type F [id number] Vaginal Chintan Calculation Initial Chintan Date Initial Exam Date Initial Exam Provider Initial Ultrasound Date Last Menstrual Period Date Ultra Sound Weeks Gestation 0 Eighteen To Twenty Week Chintan Update Ultra Sound Date Fundal Height At Umbil Quickening Date Ultra Sound Latest Weeks Gestation Final Chintan Confirmed By Final Chintan Confirmed Date Final Chintan Date Ultra Sound Latest Days Gestation 0 0 Menstrual History Last Menstrual Date Menses Monthly On Bcp Conception Prior Menses Frequency Hcg Plus Date Menarche Onset Age Delivery Information Delivery Date Delivery Type Labor Anesthesia Weeks Gestation Incision Type Labor Labor Length Hrs Delivered By Post Complications Tubal Sterilization Discharge Date Comments 0 Discharge Information Feeding Method Contraceptive Method Maternal HG B and HCT Levels
--- OUTSIDE RECORDS SUMMARY | 2025-03-15 12:49 | XMS_ITS | Continuity of Care Document ---
Author Organization [facility] Address [address] [place] [address] Care Team Providers Care Body Maker Name Role Phone CAIO GARZON Primary Care Provider KAYLA VIVAS Agricultural Systems Specialist DANIE MORALES Game Farm Supervisor ROSA MARIA POLANCO Management Liaison Assessment No assessment recorded. Plan of Treatment Reminders Order Date Submit Date Provider Last Modified By Organization Details Last Modified Time Details Appointments ANY 10 2025 08:30A M Kayla Vivas MD Not available Not available Not available ANY 2025 10:00A M DAHLIA BanegasP- Not available Not available Not available Lab lipid panel, serum 2024 025 [facility], [facility], [address] [address], [place], [address], 01/04/2025 11:15:31 albumin /creati nine, mass ratio, urine 2024 025 [facility], [address] [facility], [address], [place], [address], 01/04/2025 11:15:30 CMP, serum or plasma 2024 025 [facility], [address] [facility], [facility] [address], [place], [address], 01/04/2025 11:15:32 Referral None recorde d. Procedures pulse oximetr y (PROC) 2024 dalia In-Office Order, Internal Use Only DO Not Attach Compendium DO Not Attach Compendium, Do Not Delete/merge, [id number] 01/03/2025 12:40:09 Surgeries None recorde d. Imaging None recorde d. Medication Orders pravast atin 40 mg tablet 2024 [facility] [address], [address] [place] [address], [id number], 01/03/2025 12:40:29 Zetia 10 mg tablet 2024 [facility] [address], [address] [place] [address], [address], 01/03/2025 12:40:31 gabapen tin 800 mg tablet 2024 [facility] [address], [address] [place] [address], [id number], 01/03/2025 12:40:31 Ventoli n HFA 90 mcg/act uation aerosol inhaler 2024 [facility] [address], [address] [place] [address], [address], 01/03/2025 12:40:33 montelu kast 10 mg tablet 2024 [facility] [address], [address] [place] [address], [address], 01/03/2025 12:40:34 Incruse Ellipta 62.5 mcg/act uation powder for inhalat ion 2024 [facility] [address], [address] [place] [address], [address], 01/03/2025 12:40:34 citalop lamont 20 mg tablet 2024 [facility] [address], [address] [place], [address], 01/03/2025 12:40:33 losarta n 50 mg-hydr ochloro thiazid e 12.5 mg tablet 2024 [facility] [address], [address] [place], [address], 01/03/2025 12:40:31 flutica sone propion ate 50 mcg/act uation nasal spray,s uspensi on 2024 [facility] [address], [address] [place], [address], 01/03/2025 12:40:32 Patient TargetsNo targets recorded. Patient Instructions Encounter Date Encounter Id Patient Instructions Last Modified By Organization Details Last Modified Time 01/03/2025 [id number] osteoarthritis: care instructions yarauz Not available 01/03/2025 [...] Abnormal Flag Note LastModifiedBy Organization Detail LastModifiedTime 12/07/1912/07/2024 CMP14 +EGFR glucose 87 mg/dL 70-99 Not Available [facility] ([facility]) [address] [place], [address], 12/07/2024 08:33:45 12/07/1912/07/2024 CMP14 +EGFR BUN 8 mg/dL 8-27 Not Available [facility] ([facility]) [address] [place], [address], 12/07/2024 08:33:45 12/07/19 25 12/07/2024 CMP14 +EGFR creatinine 0.72 mg/dL 0.57-1 .00 Not Available [facility] ([facility]) [address] [place], [address], 12/07/2024 08:33:45 12/07/1912/07/2024 CMP14 +EGFR eGFR 93 mL/mi n/1.7 3 >59 Not Available [facility] ([facility]) [address] [facility], [place], [address], 12/07/2024 08:33:45 12/07/1912/07/2024 CMP14 +EGFR BUN/creatini ne ratio 11 12-28 below low normal Not Available [facility] ([facility]) [address] [facility] [place], [address], 12/07/2024 08:33:45 12/07/19 25 12/07/2024 CMP14 +EGFR sodium 137 mmol/ L 134-14 4 Not Available [facility] ([facility]) [address] [place], [address], 12/07/2024 08:33:45 12/07/1912/07/2024 CMP14 +EGFR potassium 4.8 mmol/ L 3.5-5. 2 Not Available [facility] ([facility]) [address] [place], [address], 12/07/2024 08:33:45 12/07/1912/07/2024 CMP14 +EGFR chloride 95 mmol/ L 96-106 below low normal Not Available [facility] ([facility]) [address] [place], [address], 12/07/2024 08:33:45 12/07/1912/07/2024 CMP14 +EGFR carbon dioxide, total 27 mmol/ L 20-29 Not Available [facility] ([facility]) [address] [place], [address], 12/07/2024 08:33:45 12/07/19 25 12/07/2024 CMP14 +EGFR calcium 9.0 mg/dL 8.7-10 .3 Not Available [facility] ([facility]) [address] [facility], [place], [address], 12/07/2024 08:33:45 12/07/1912/07/2024 CMP14 +EGFR protein, total 7.1 g/dL 6.0-8. 5 Not Available [facility] ([facility]) [address] [facility], [place], [address], 12/07/2024 08:33:45 12/07/1912/07/2024 CMP14 +EGFR albumin 4.5 g/dL 3.9-4. 9 Not Available [facility] ([facility]) [address] [facility] [place], [address], 12/07/2024 08:33:45 12/07/1912/07/2024 CMP14 +EGFR globulin, total 2.6 g/dL 1.5-4. 5 Not Available [facility] ([facility]) [address] [facility], [place], [address], 12/07/2024 08:33:45 12/07/1912/07/2024 CMP14 +EGFR bilirubin, total 0.4 mg/dL 0.0-1. 2 Not Available [facility] ([facility]) [address] [facility], [place], [address], 12/07/2024 08:33:45 12/07/1912/07/2024 CMP14 +EGFR alkaline phosphatase 82 IU/L 49-135 Ple ase note refer ence inter camelia reynoso e Not Available [facility] ([facility]) [address] [facility], [place], [address], 12/07/2024 08:33:45 12/07/1912/07/2024 CMP14 +EGFR AST (SGOT) 21 IU/L 0-40 Not Available [facility] ([facility]) [address] [facility], [place], [address], 12/07/2024 08:33:45 12/07/19 25 12/07/2024 CMP14 +EGFR ALT (SGPT) 17 IU/L 0-32 Not Available [facility] ([facility]) [address] [facility], [place], [address], 12/07/2024 08:33:45 12/07/19 25 12/07/2024 CBC WITH DIFFE RENTI AL/PL ATELE T WBC 8.1 x10e3 /uL 3.4-10 .8 Not Available [facility] ([facility]) [address] [facility] [place], [address], 12/07/2024 08:33:46 12/07/1912/07/2024 CBC WITH DIFFE RENTI AL/PL ATELE T RBC 5.01 x10e6 /uL 3.77-5 .28 Not Available [facility] ([facility]) [address] [facility], [place], [address], 12/07/2024 08:33:46 12/07/1912/07/2024 CBC WITH DIFFE RENTI AL/PL ATELE T hemoglobin 15.8 g/dL 11.1-1 5.9 Not Available [facility] ([facility]) [address] [facility], [place], [address], 12/07/2024 08:33:46 12/07/1912/07/2024 CBC WITH DIFFE RENTI AL/PL ATELE T hematocrit 47.8 % 34.0-4 6.6 above high normal Not Available [facility] ([facility]) [address] [place], [address], 12/07/2024 08:33:46 12/07/1912/07/2024 CBC WITH DIFFE RENTI AL/PL ATELE T MCV 95 fL 79-97 Not Available [facility] ([facility]) [address] [place], [address], 12/07/2024 08:33:46 12/07/19 25 12/07/2024 CBC WITH DIFFE RENTI AL/PL ATELE T MCH 31.5 pg 26.6-3 3.0 Not Available [facility] ([facility]) [address] [facility], [place], [address], 12/07/2024 08:33:46 12/07/19 25 12/07/2024 CBC WITH DIFFE RENTI AL/PL ATELE T MCHC 33.1 g/dL 31.5-3 5.7 Not Available [facility] ([facility]) [address] [facility], [place], [address], 12/07/2024 08:33:46 12/07/1912/07/2024 CBC WITH DIFFE RENTI AL/PL ATELE T RDW 12.7 % 11.7-1 5.4 Not Available [facility] ([facility]) [address] [facility], [place], [address], 12/07/2024 08:33:46 12/07/1912/07/2024 CBC WITH DIFFE RENTI AL/PL ATELE T platelets 454 x10e3 /uL 150-45 0 above high normal Not Available [facility] ([facility]) [address] [facility], [place], [address], 12/07/2024 08:33:46 12/07/1912/07/2024 CBC WITH DIFFE RENTI AL/PL ATELE T neutrophils 67 % notest ab. Not Available [facility] ([facility]) [address] [facility], [place], [address], 12/07/2024 08:33:46 12/07/1912/07/2024 CBC WITH DIFFE RENTI AL/PL ATELE T lymphs 23 % notest ab. Not Available [facility] ([facility]) [address] [facility], [place], [address], 12/07/2024 08:33:46 12/07/19 25 12/07/2024 CBC WITH DIFFE RENTI AL/PL ATELE T monocytes 8 % notest ab. Not Available [facility] ([facility]) [address] [facility], [place], [address], 12/07/2024 08:33:46 12/07/19 25 12/07/2024 CBC WITH DIFFE RENTI AL/PL ATELE T eos 1 % notest ab. Not Available [facility] ([facility]) [address] [facility], [place], [address], 12/07/2024 08:33:46 12/07/1912/07/2024 CBC WITH DIFFE RENTI AL/PL ATELE T basos 1 % notest ab. Not Available [facility] ([facility]) [address] [facility], [place], [address], 12/07/2024 08:33:46 12/07/19 25 12/07/2024 CBC WITH DIFFE RENTI AL/PL ATELE T neutrophils (absolute) 5.4 x10e3 /uL 1.4-7. 0 Not Available [facility] ([facility]) [address] [facility], [place], [address], 12/07/2024 08:33:46 12/07/19 25 12/07/2024 CBC WITH DIFFE RENTI AL/PL ATELE T lymphs (absolute) 1.9 x10e3 /uL 0.7-3. 1 Not Available [facility] ([facility]) [address] [facility], [place], [address], 12/07/2024 08:33:46 12/07/19 25 12/07/2024 CBC WITH DIFFE RENTI AL/PL ATELE T monocytes(ab solute) 0.7 x10e3 /uL 0.1-0. 9 Not Available [facility] ([facility]) [address] [facility], [place], [address], 12/07/2024 08:33:46 09/15/20 25 12/07/2024 CBC WITH DIFFE RENTI AL/PL ATELE T eos (absolute) 0.1 x10e3 /uL 0.0-0. 4 Not Available [facility] ([facility]) [address] [facility], [place], [address], 12/07/2024 08:33:46 12/07/1912/07/2024 CBC WITH DIFFE RENTI AL/PL ATELE T baso (absolute) 0.1 x10e3 /uL 0.0-0. 2 Not Available [facility] ([facility]) [address] [place], [address], 12/07/2024 08:33:46 12/07/1912/07/2024 CBC WITH DIFFE RENTI AL/PL ATELE T immature granulocytes 0 % notest ab. Not Available [facility] ([facility]) [address] [place], [address], 12/07/2024 08:33:46 12/07/1912/07/2024 CBC WITH DIFFE RENTI AL/PL ATELE T immature grans (abs) 0.0 x10e3 /uL 0.0-0. 1 Not Available [facility] ([facility]) [address] [place], [address], 12/07/2024 08:33:46 12/07/1912/07/2024 SANDRA+L IPASE amylase 85 U/L 31-110 Not Available [facility] ([facility]) [address] [place], [address], 12/07/2024 08:33:47 12/07/1912/07/2024 SANDRA+L IPASE lipase 25 U/L 14-72 Not Available [facility] ([facility]) [address] [place], [address], 12/07/2024 08:33:47 12/07/1912/06/2024 urina lysis , dipst ick Leukocytes Negati ve Not Available In-Office Order Internal Use Only DO Not Attach Compendium DO Not Attach Compendium, Do Not Delete/merge, [id number] 12/06/2024 12:59:04 12/07/1912/06/2024 urina lysis , dipst ick Nitrite negati ve Not Available In-Office Order Internal Use Only DO Not Attach Compendium DO Not Attach Compendium, Do Not Delete/merge, [facility] 12/06/2024 12:59:04 12/07/1912/06/2024 urina lysis , dipst ick Urobilinogen .2 Not Available In-Of fice Order Internal Use Only DO Not Attach Compendium DO Not Attach Compendium, Do Not Delete/merge, [facility] 12/06/2024 12:59:04 12/07/1912/06/2024 urina lysis , dipst ick Protein Negati ve Not Available In-Office Order Internal Use Only DO Not Attach Compendium DO Not Attach Compendium, Do Not Delete/merge, [facility] 12/06/2024 12:59:04 12/07/1912/06/2024 urina lysis , dipst ick pH 7.5 Not Available In-Office Order Internal Use Only DO Not Attach Compendium DO Not Attach Compendium, Do Not Delete/merge, [facility] 12/06/2024 12:59:04 12/07/1912/06/2024 urina lysis , dipst ick Blood Negati ve Not Available In-Office Order Internal Use Only DO Not Attach Compendium DO Not Attach Compendium, Do Not Delete/merge, [facility] 12/06/2024 12:59:04 12/07/1912/06/2024 urina lysis , dipst ick Specific Tild[place] 1.015 Not Available In-Off ice Order Internal Use Only DO Not Attach Compendium DO Not Attach Compendium, Do Not Delete/merge, [facility] 12/06/2024 12:59:04 12/07/1912/06/2024 urina lysis , dipst ick Ketone Negati ve Not Available In-Office Order Internal Use Only DO Not Attach Compendium DO Not Attach Compendium, Do Not Delete/merge, [facility] 12/06/2024 12:59:04 12/07/1912/06/2024 urina lysis , dipst ick Bilirubin Negati ve Not Available In-Office Order Internal Use Only DO Not Attach Compendium DO Not Attach Compendium, Do Not Delete/merge, [facility] 12/06/2024 12:59:04 12/07/1912/06/2024 urina lysis , dipst ick Glucose Negati ve Not Available In-Office Order Internal Use Only DO Not Attach Compendium DO Not Attach Compendium, Do Not Delete/merge, [facility] 12/06/2024 12:59:04 12/07/1912/06/2024 urina lysis , dipst ick Appearance Clear Not Available In-Offi ce Order Internal Use Only DO Not Attach Compendium DO Not Attach Compendium, Do Not Delete/merge, [facility] 12/06/2024 12:59:04 12/07/1912/06/2024 urina lysis , dipst ick Color Yellow Not Available In-Office Order Internal Use Only DO Not Attach Compendium DO Not Attach Compendium, Do Not Delete/merge, [facility] 12/06/2024 12:59:04 01/04/2001/04/2025 ALBUM IN/CR EATIN INE RATIO ,URIN E creatinine, urine 13.9 mg/dL notest ab. Not Available [facility] ([facility]) [address] [facility], [place], [address], 01/04/2025 11:15:30 01/04/2001/04/2025 ALBUM IN/CR EATIN INE RATIO ,URIN E albumin, urine <3.0 ug/mL notest ab. Not Available [facility] ([facility]) [address] [facility], [place], [address], 01/04/2025 11:15:30 01/04/20 25 01/04/2025 ALBUM IN/CR EATIN INE RATIO ,URIN E alb/creat ratio <22 Lilli l: 0 - 29 Moder ately incre ased: 30 - 300 Sever guero incre ased: >300 Not Available [facility] ([facility]) [address] [place], [address], 01/04/2025 11:15:30 01/04/20 25 01/04/2025 LIPID PANEL cholesterol, total 173 mg/dL 100-19 9 Not Available [facility] ([facility]) [address] [place], [address], 01/04/2025 11:15:31 01/04/2001/04/2025 LIPID PANEL triglyceride s 73 mg/dL 0-149 Not Available [facility] ([facility]) [address] [place], [address], 01/04/2025 11:15:31 01/04/20 25 01/04/2025 LIPID PANEL HDL cholesterol 58 mg/dL >39 Not Available [facility]) [address] [place], [address], 01/04/2025 11:15:31 01/04/2001/04/2025 LIPID PANEL VLDL cholesterol shan 14 mg/dL 5-40 Not Available [facility] ([facility]) [address] [place], [address], 01/04/2025 11:15:31 01/04/2001/04/2025 LIPID PANEL LDL chol calc ([facility]) 101 mg/dL 0-99 above high normal Not Available [facility] ([facility]) [address] [place], [address], 01/04/2025 11:15:31 01/04/2001/03/2025 COMP. METAB OLIC PANEL (14) interpretati on: [...] renal failu re. Addit ional infor abimael cecelia may be found at [email or web address] org. Not Available [facility] ([facility]) [address] [place], [address], 01/04/2025 11:15:32 01/04/2001/04/2025 COMP. METAB OLIC PANEL (14) glucose 92 mg/dL 70-99 Not Available [facility] ([facility]) [address] [place], [address], 01/04/2025 11:15:32 01/04/20 25 01/04/2025 COMP. METAB OLIC PANEL (14) BUN 7 mg/dL 8-27 below low normal Not Available [facility] ([facility]) [address] [place], [address], 01/04/2025 11:15:32 01/04/20 25 01/04/2025 COMP. METAB OLIC PANEL (14) creatinine 0.72 mg/dL 0.57-1 .00 Not Available [facility] ([facility]) [address] [place], [address], 01/04/2025 11:15:32 01/04/20 25 01/04/2025 COMP. METAB OLIC PANEL (14) eGFR 93 mL/mi n/1.7 3 >59 Not Available [facility] ([facility]) [address] [place], [address], 01/04/2025 11:15:32 01/04/20 25 01/04/2025 COMP. METAB OLIC PANEL (14) BUN/creatini ne ratio 10 12-28 below low normal Not Available [facility] ([facility]) [address] [facility] [place], [address], 01/04/2025 11:15:32 01/04/20 25 01/04/2025 COMP. METAB OLIC PANEL (14) sodium 137 mmol/ L 134-14 4 Not Available [facility] ([facility]) [address] [facility] [place], [address], 01/04/2025 11:15:32 01/04/20 25 01/04/2025 COMP. METAB OLIC PANEL (14) potassium 4.9 mmol/ L 3.5-5. 2 Not Available [facility] ([facility]) [address] [facility] [place], [address], 01/04/2025 11:15:32 01/04/20 25 01/04/2025 COMP. METAB OLIC PANEL (14) chloride 96 mmol/ L 96-106 Not Available [facility] ([facility]) [address] [facility] [place], [address], 01/04/2025 11:15:32 01/04/2001/04/2025 COMP. METAB OLIC PANEL (14) carbon dioxide, total 25 mmol/ L 20-29 Not Available [facility] ([facility]) [address] [facility] [place], [address], 01/04/2025 11:15:32 01/04/20 25 01/04/2025 COMP. METAB OLIC PANEL (14) calcium 9.6 mg/dL 8.7-10 .3 Not Available [facility] ([facility]) [address] [facility] [place], [address], 01/04/2025 11:15:32 01/04/20 25 01/04/2025 COMP. METAB OLIC PANEL (14) protein, total 7.6 g/dL 6.0-8. 5 Not Available [facility] ([facility]) [address] [facility], [place], [address], 01/04/2025 11:15:32 01/04/20 25 01/04/2025 COMP. METAB OLIC PANEL (14) albumin 4.5 g/dL 3.9-4. 9 Not Available [facility] ([facility]) [address] [facility], [place], [address], 01/04/2025 11:15:32 01/04/20 25 01/04/2025 COMP. METAB OLIC PANEL (14) globulin, total 3.1 g/dL 1.5-4. 5 Not Available [facility] ([facility]) [address] [facility], [place], [address], 01/04/2025 11:15:32 01/04/20 25 01/04/2025 COMP. METAB OLIC PANEL (14) bilirubin, total 0.4 mg/dL 0.0-1. 2 Not Available [facility] ([facility]) [address] [facility], [place], [address], 01/04/2025 11:15:32 01/04/2001/04/2025 COMP. METAB OLIC PANEL (14) alkaline phosphatase 81 IU/L 49-135 Not Available [facility]) [address] [facility], [place], [address], 01/04/2025 11:15:32 01/04/20 25 01/04/2025 COMP. METAB OLIC PANEL (14) AST (SGOT) 21 IU/L 0-40 Not Available [facility] ([facility]) [address] [facility] [place], [address], 01/04/2025 11:15:32 01/04/20 25 01/04/2025 COMP. METAB OLIC PANEL (14) ALT (SGPT) 21 IU/L 0-32 Not Available [facility] ([facility]) [address] [facility], [place], [address], 01/04/2025 11:15:32 01/04/20 25 01/03/2025 pulse oxime try (PROC ) Resting Pulse Ox 97 Not Available In-Off ice Order Internal Use Only DO Not Attach Compendium DO Not Attach Compendium, Do Not Delete/merge, [id number] 01/03/2025 11:59:28 12/12/19 25 12/10/2024 US, duple x, abdom en, compl ete No observ ation record ed. [facility] [address], [place], [address], 01/03/2025 12:41:07 Result Notes None recorded. Problems Name Problem SNOMED Code Status Onset Date Resolution Date Notes Provider Name and Address Organization Details Recorded Time Achilles kelly s 65030787 Completed 10/17/2014 Katia Betancour t [place], [place] [facility] 6 10:18:59 Chronic sinusitis 40254888 Active Kely Churchill RN [place] [facility] 2 12:36:19 Impaired glucose tolerance 8678826 Active Kely [place] [facility] 2 12:43:12 Chronic liver disease 398271551 Active MAME [place] [facility] 2 12:35:53 Pneumonia 146627393 Completed 11/20/2016 Kely [place] [facility] 10:36:30 Acute exacerbat ion of chronic obstructi ve pulmonary disease 239917690 Completed 11/20/2016 Kely [place] [facility] 10:36:25 Chest pain 47457951 Completed 07/25/2017 MAME [place] [facility] 8 09:51:51 Heel pain 8800044 Completed 10/17/2014 Katia Betancour t [place] [facility] 6 10:18:59 Hepatitis C antibody detected 993346664 Completed 11/20/2016 Kely [place] [facility] 10:36:42 Tobacco user 264331013 Active Kely [place] [facility] 12:38:15 Chronic obstructi ve pulmonary disease 85797983 Active Kely [place] [facility] 2 12:36:10 Essential hypertens ion 72373328 Active Kely [place] [facility] 2 12:36:49 Degenerat ion of lumbar intervert ebral disc 64002881 Active Kely [place] [facility] 2 12:36:30 Osteoarth ritis 527057629 Active Kely [place] [facility] 2 12:37:44 Hyperlipi demia 65253929 Active Kely [place] [facility] 2 12:37:01 Hypothyro idism 38625060 Active Kely [place] [facility] 2 12:37:15 Depressiv e disorder 65429150 Active Kely [place] [facility] 12:38:27 Osteopeni a 196892173 Completed 201703/19/2019 Caio Garzon INSTRUMENTATION TECHNOLOGIST- Attn: Sravna hyde,[address] [place], [address], [place] [facility] 5 12:21:24 Spondylos is 7976004 Active 2017 Kely [place] [facility] 2 12:43:30 Polyp of colon 00899905 Completed 201705/05/2020 Kely [place] [facility] 1 10:48:09 Genital warts 618792081 Active 2017 Kely [place] [facility] 2 12:43:05 Normal body mass index 29424970 Active 2018 Kely [place] [facility] 12:43:20 Pulmonary emphysema 25466884 Active 2018 Kely [place] [facility] 2 12:37:50 History of polyp of colon 536185521 Completed 201805/05/2020 GABBY Banegas Attn: Sravan hyde,[address] [facility], [place], [address], [place] [facility] 4 14:53:30 Osteopeni a with high fracture risk 662799860215 101 Active 2018 Kely [place] [facility] 2 12:38:01 Bilateral lung opacities on plain chest X-ray 482280750 Active 2021 Kely [place] [facility] 2 12:42:56 Lumbosacr al radiculop athy 7202565 Active 2021 GABBY Banegas Attn: Sravan hyde,[address] [place], [address], [place] [facility] 2 11:04:07 Moderate recurrent major depressio n 60173056 Active 2021 [facility] BanegasBEAN Attn: Sravan hyde,[address] [place], [address], [place] [facility] 3 10:18:21 Body mass index less than 20 968236100 Active 2022 GABBY Banegas Attn: Sravan g,[address] [place], [address], [place] [facility] 3 10:18:21 Autoimmun e thyroidit is 11038079 Active 2022 [facility] BanegasBEAN Attn: Sravan g,[address] [facility], [place], [address], [place] [facility] 3 10:18:22 Vitamin D deficienc y 09168135 Active 2022 [facility] BanegasBEAN Attn: Accountamy g,[address] [facility], [place], [address], [facility] - [facility] 3 10:19:07 History of polyp of colon 258070759 Active 2023 GABBY Banegas Attn: Sravan hyde,[address] [facility], [place], [address], [facility] - SI 4 14:53:30 Osteopeni a 435231817 Active 2024 GABBY Banegas Attn: Sravan hyde,[address] [facility], [place], [address], [facility] - SI 5 12:21:24 Smoker 20580323 Active 2024 GABBY Banegas Attn: Sravan hyde,[address] [facility], [place], [address], [facility] - SI 5 12:21:40 Lesion of vulva 014396587 Active 2024 GABBY Banegas Attn: Sravan hyde,[address] [facility], [place], [address], [facility] - SI 5 12:21:49 Right upper quadrant pain 990045978 Active 2024 GABBY Banegas Attn: Sravan hyde,[address] [facility], [place], [address], [facility] - SI 5 12:56:43 Problem Notes None recorded. Procedures Surgical History Date Name Laterality Status Provider Name and Address Organization Details Recorded Time 09/21/19 25 Date of Last Pap Smear completed Kely Churchill RN [facility] 10/04/2024 10:31:57 03/15/20 24 Date of Last Mammogram completed Kely Churchill RN [facility] 10/04/2024 10:31:48 02/09/20 24 Cerumen Removal completed GABBY Banegas Attn: Accounting, [address] [place], [address], [facility] 02/09/2024 14:56:31 10/06/19 24 Cerumen Removal completed GABBY Banegas Attn: Accounting, [address] , [place], [address], [facility] [place] 10/06/2023 10:31:15 03/24/19 12 Cholecystectomy completed Kim Corcoran [facility] [place] 06/20/2014 11:21:27 Knee Surgery completed Kim Corcoran [facility] [place] 06/20/2014 11:20:05 Hernia Repair completed Kim Corcoran [facility] 06/20/2014 11:21:10 Imaging Results None recorded. Procedure [...] for 7 days. 01/16 completed called into [facility]. spoke with Geni Not Available Not Available [...] 03/14/16 : #1 w/ 4rfs called into [facility] spoke with Edna. Not Available Not Available [...] Updated DateTime 5 154.94 cm 19.1 kg/m2 80480.8 3 g 97.8 [degF] 97 % 80 /min 108/70 mm[Hg] Katia carmona [place] [facility] 5 11:57:48 Social History Question Answer Notes LastModified by Organizat ion Details LastModified Time Tobacco Smoking Status Current Every Day Smoker 5-10 a day DEMARCUS Uribe, [place] [facility] 10/06/2023 10:02:17 Do You Have An Advance [...] Or Recreational Drugs Have You Used? Cristo [email or web address] Information not available 10/12/2015 Education 9 GED [...] Do You Have A Medical Power Of Coil Inspector? No [email or web address] Information not available 07/16/2021 What [...] Much Tobacco Do You Smoke? 0.5 PPD [email or web address] Information not available 10/12/2015 General Stress Level [...] available 01/07/2019 Are you currently employed? Yes [email or web address] Information not available 11/06/2020 Are you able to care for yourself independently? Yes Information not available 05/05/2020 What is your occupation? [employer] Information not available 07/25/2017 Do you or have you ever used e-cigarettes or vape? Never used electronic cigarettes Information not available 01/07/2019 What is your exercise level? Occasional Information not available 02/14/2014 Mental Status Question Answer Note LastModified by Organization D etails LastModified Time Do you feel stressed (tense, restless, nervous, or anxious, or unable to sleep at night)? [id number] Information not available 05/05/2020 Family History Relationship [...] Pressure Y Arthritis Y Thyroid Problems Y Depression Y COPD Y Allergies Y High Cholesterol Y Hepatitis Y Hypertension [...] virus, trivalent, preservative 4 completed Not Available [facility] 04/10/2019 02:32:02 Influenza, split virus, quadrivalent, preservative 6 completed Not Available [facility] 04/10/2019 02:32:59 influenza, unspecified formulation 9 completed Not Available [facility] 01/03/2025 11:33:22 Influenza, split virus, quadrivalent, PF 7 completed Not Available [facility] 04/10/2019 02:33:56 Influenza, split virus, quadrivalent, PF 8 completed Not Available [facility] 04/10/2019 02:49:14 pneumococcal polysaccharide PPV23 4 completed Not Available [facility] 02/09/2021 16:49:58 Tdap 4 completed Not Available [facility] 02/09/2021 16:49:58 Influenza, split virus, quadrivalent, PF 3 completed Not Available [facility] 02/09/2021 16:49:57 Influenza, split virus, quadrivalent, preservative 9 completed [facility] 04/10/2019 02:38:15 Influenza, split virus, quadrivalent, preservative 0 completed SAVITA MARRERO Attn: Accounting[address], [address] [place] [address], [place] [facility] 02/22/2020 10:49:10 COVID-19, mRNA, [...] 2 completed GABBY Banegas Attn: Accounting[address], [address] [place] [address], [place] [facility] 02/06/2022 15:18:17 Pneumococcal conjugate PCV 13 2 completed GABBY Banegas Attn: Accounting[address], [address] [place] [address], [place] [facility] 02/06/2022 15:18:17 Influenza, high-dose, quadrivalent, PF 3 completed GABBY Banegas Attn: Accounting[address], [address] [place] [address], [place] [facility] 01/13/2023 16:39:21 Influenza, split virus, trivalent, preservative 5 completed Not Available [facility] 04/10/2019 02:32:12 Influenza, split virus, trivalent, preservative 4 completed Ewelina Baez [place], [place] [facility] 02/09/2024 15:12:30 Pneumococcal conjugate PCV20, polysaccharide VPG104 conjugate, adjuvant, PF 5 completed Ewelina Baez [place] [facility] 06/28/2024 11:38:10 Tdap 5 completed SAVITA LEE Attn: Accounting[address] [facility], [place], [address], [place] [facility] 06/28/2024 16:23:54 Influenza, split virus, trivalent, PF 5 completed DEMARCUS [place] [facility] 12/06/2024 17:25:32 Past Encounters Encounter ID Performer Location Encounter Start Date Encounter Closed Date Diagnosis/Indication Diagnosis SNOMED-CT Code Diagnosis ICD10 Code Diagnosis IMO Codes Diagnosis Note [id number] Gui Zelaya MD [facility] [address] [place] [phone] [id number] 12/06/2024 12:16:51 12/07/2024 11:47:42 Right upper quadrant pain 177967667 R10.11 193650 64 y/o WF c/o RUQ abd pain [...] since 2011. Requires i nfluenza virus vaccination 707001425 Z23 389541 [id number] Gui Zelaya MD [facility] [address] [place] [phone] 01/03/2025 11:32:25 01/04/2025 13:55:07 Hypothyroidism 96703206 E03.9 Dx 06/27/2012on Euthyrox 100 mcg tablet once daily02/10 TSH 1.070, T4 1.2102023 TSH 0.435 med adjustment by ENDO done+ thyroid antibodies 12/29/2023 TSH 1.380curre ntly taking Levothyrox ine 100mcg daily has refills per ENDO Essential hypertension 51606455 I10 BP Goal: Less than 140/90BP Controlled : yes; per the JNC8 guidelines in the absence of renal disease and DMHealthy Weight: 5'1= 100-131 lbsDiscuss ed: Low sodium balanced diet, moderate exercise at least 3-4 times per week for an average of 40 minutesNex t Visit: 3month(s) Chronic ob structive pulmonary disease 13028082 J44.9 [address] pulmonolog istGot CT of lungs in 2022 Mixed hyperlipidemia 267 067247 E78.2 74218 Life style modificati ons (LSM)06/05ho 213.6trig 108HDL [...] your coffee. Moderate r ecurrent major depression 04077688 F33.1 PHQ2-9 0 stablecont inue Rx Autoimmune thyroiditis 66848238 E06.3 05/22/2022 TSH 0.030T4 1.84 02/10/2023 TSH 1.070, T4 1.2112023 TSH 1.380conti nue Euthyrox 112mcg daily gets Rx from ENDO Osteoarthritis 398213865 M15.4 Range of motion exercises Tylenol arthritis as needed Lumbosacra l radiculopathy 4056311 M54.17 Patient is a housekeepe rHas history [...] traversing left S1 nerve root. Chronic sinusitis 901919 00 J32.9 Has been using nasal spraystop smoking Degenerati on of lumbar intervertebral disc 61387657 M51.362 10/19/2021 LSS xray shows DDDPatient will [...] management 02/2022 Osteopenia with high fracture risk 0049097556 37742 M85.80 Patient taking OTC Calcium and Vitamin DOn fosamax holiday since 04/14/2024 Vitamin D deficiency 347 79081 E55.9 09/20/2024 Vitamin D 43.512/2022 Vitamin D 9she is taking otc vitamin D3 1000 IU once daily Tobacco user 647358141 Z 72.0 still smokes 1/2 PPD stop smoking pt discontinu ed Bupropion by tapering down as advisedRep orts patches irritated skin History of polyp of colon 412312125 Z86.0100 tubular adenoma per colonoscop y 04/2024 needs repeat in 3-5 year Depression screening 171 497913 Z13.31 855501 negative Right uppe r quadrant pain 483409535 R10.11 774527 [id number] y/o WF c/o RUQ abd pain worse [...] by Organization Details LastModified Time None Recorded Payers Encounter Date Sequence Insurance Name Policy Number Policy Jeff Covered Member ID Jeff Member ID Guarantor Name 01/03/2025 1 [place] Melly Raya [id number] Melly Raya 01/03/2025 2 [place] WHEN MEDICARE OR MEDICARE REPLACEMENT PRIMARY) Melly Raya [id number] Melly Raya Notes Date Note Type Note Provider Name and Address Organization Details Recorded Time 01/04/20 25 text/htm l HyperlipidemiaReported by PatientHPIFor type of hyperlipidemia, patient [...] interested in quitting at this time.She saw emergency veterinary technician. She is getting thyroid refills from ENDO. Her medication was adjusted. She had dexa scan. She stopped Fosamax. Endo advised drug holiday. Her scan shows osteopenia now.She continues to smoke. She was counseled to stop.Her abdominal pain has resolved. He testing was essentially normal except abd u/s showed a renal cyst-simple. Caio Garzon, INSTRUMENTATION TECHNOLOGIST- Attn: Accounting, [address] [place], [address], [facility] 01/03/2025 18:06:59 OBGyn Episode No OBEpisode recorded.
[2025-03-15 13:38] LABS: Free T4 Free Thyroxine 1.05 ng/dL (0.78-2.19)
[2025-03-15 13:53] LABS: Thyroid Stimulating Hormone 4.020 uIU/mL (0.465-4.680)
== END 2025-03-15 12:41 | disposition home or self-care (01) ==
PROVIDERS: PCP Registered Nurse; Visit Provider Internal Medicine
DX: I10 Essential (primary) hypertension (principal)
CPT/HCPCS: 36415; 84439; 84443